=== PATIENT | male | born 1965 | race African-American/Black ===

== ENCOUNTER 2017-06-29 12:12 | Emergency (ER) | payer SELFPAY ==
[2017-06-29] VITALS (7 sets, daily range): BP systolic 128–159; BP diastolic 74–110; PULSE 72–91; RESP 16–27; TEMP 37; O2SAT 92–100
--- NOTE | 2017-06-29 12:41 | EKG12_ITS ---
Test Reason : Blood Pressure : / mmHG Vent. Rate : 088 BPM Atrial Rate : 088 BPM P-R Int : 146 ms QRS Dur : 084 ms QT Int : 390 ms P-R-T Axes : 065 -46 157 degrees QTc Int : 471 ms Normal sinus rhythm Left anterior fascicular block Left ventricular hypertrophy T wave abnormality, consider lateral ischemia Prolonged QT Abnormal ECG Confirmed by KACEY SAENZ MD ([id number]), health editor GILMA CANELA ([id number]) on 07/02/2017 2:54:20 PM Referred By: FRANSISCA Confirmed By:KACEY SAENZ MD
--- NOTE | 2017-06-29 12:41 | RAD_ITS ---
STUDY: X-RAY CHEST REASON FOR EXAM: Male, 52 years old. Cough and shortness of breath. TECHNIQUE: Single AP portable view of the chest. COMPARISON: Comparison is made with prior examination dated March 21, 2013. FINDINGS: Hyperinflation. There is no demonstrated pleural abnormality. Normal size heart. A left-sided dual-chamber pacemaker is seen. Normal mediastinum and gypsy. Normal visualized pulmonary arteries. There is atherosclerotic tortuosity of the aortic arch and descending thoracic aorta. There are diffuse degenerative changes of the visualized thoracic spine. Normal visualized ribs, clavicles, and shoulders. There is no demonstrated abnormality of the visualized soft tissue structures of the upper abdomen. RAD/Chest 1 View (Portable) IMPRESSION: Hyperinflation. Electronically Signed: Rob Gallegos MD at 13:20 EST Tel [phone], Service support ,
--- NOTE | 2017-06-29 12:41 | CT_ITS ---
STUDY: CTA CHEST REASON FOR EXAM: Male, 52 years old. 2 day history of cough. RADIATION DOSAGE (If Supplied By Facility): CTDIvol = ( 7.48 ) mGy, DLP = ( 180.78 ) mGycm TECHNIQUE: The examination was performed with the intravenous administration of 75 ml of Isovue 370 contrast material. Post-processing of the angiographic images was performed, with multiplanar reformation and 3D reconstruction. Individualized dose optimization techniques were used for this CT. COMPARISON: Comparison is made with prior study dated March 21, 2013. FINDINGS: Normal enhancement of the main pulmonary artery and right and left pulmonary arteries. Normal enhancement of the bilateral peripheral pulmonary arteries. There is no demonstrated pulmonary embolism. Normal thoracic aorta and visualized great vessels. There is no demonstrated aortic dissection. Normal heart and pericardium. A left-sided pacemaker is seen. Normal mediastinum. Normal hilar regions. Normal visualized trachea and bronchi. Hyperinflation. Mild degree of emphysematous changes slightly worse in the upper lobes. Minimal degree of atelectasis at the right lung base. Normal pleura. Normal chest wall structures. There are degenerative changes of thoracic spine. Normal visualized upper abdomen. CT/CTA Chest W/WO Contrast IMPRESSION: Mild degree of emphysematous changes and right basilar atelectasis. There is no evidence of bone embolism. Electronically Signed: Rob Gallegos MD at 15:22 EST Tel [phone], Service support ,
--- NOTE | 2017-06-29 12:49 | ED.DCSUM_ITS ---
- ER Visit Summary Date of Service: 06/29/17 Chief Complaint: Cough and shortness of breath History of Present Illness: The patient is a 52 M presenting with cough and shortness of breath for the past 2-3 days. He states he has had a cough productive of sputum. He denies fever. He states that he has had some intermittent pleuritic chest pain. He has a history of a remote PE. He is not on anticoagulants. He has a history of a defibrillator secondary to congestive heart failure. History of hypertension. He is a smoker. Physical Examination: Vitals are stable. Patient is afebrile. Alert no acute distress. HEENT exam is unremarkable. Neck is supple. Lungs are clear and equal bilaterally. Heart is regular rate and rhythm. Abdomen is soft nontender nondistended. Extremities are unremarkable. Skin is warm and dry. No focal neurologic deficit. Remainder of exam is unremarkable. Emergency Department Course and Treatment: Patient was given aspirin on arrival. EKG is sinus rhythm rate of 88 with LVH, lateral T-wave inversion unchanged from previous. Chest x-ray shows hyperinflation. CBC, chemistries unremarkable other than BUN 23, creatinine 1.49. Troponin is negative. CTA chest was obtained shows no evidence of PE, mild emphysema, right basilar atelectasis. Patient is resting comfortably in the emergency department. His ambulatory pulse ox is 90-92% on room air. Repeat troponin is negative. Patient is given an albuterol MDI and prescription for Tessalon Perles. He is advised to follow-up with his primary care physician. Advised return to ED if worsening complaints. Disposition: Discharge home Impression: Dyspnea, bronchitis This note was generated with [employer] dictation software. It may contain incorrect words, spelling, and punctuation that were not noted in review of the chart prior to signing ED Disposition - Plan for ED Patient: Chief Complaint: Shortness of Breath Instructions: ED Upper Resp Infec No Abx Tx Prescriptions: Benzonatate [Tessalon Perle] 100 mg PO TID PRN PRN #20 capsule PRN Reason: Cough Referrals: Geovany Palma MD [NON-STAFF] - Care Physician,No Primary [Primary Care Provider] -
[2017-06-29] MEDS: Aspirin 81 MG TAB.CHEW 324 MG PO (13:02)
--- NOTE | 2017-06-29 13:14 | NURSING ---
MED REC COMPLETED WITH MEDICATIONS AND DOSES PATIENT IS SUPPOSE TO BE TAKING- PT STATES HE HAS NOT BEEN ABLE TO AFFORD HIS MEDICATIONS AND HAS NOT TAKEN THEM FOR APPROX A MONTH.
[2017-06-29 13:25] LABS: Absolute Neutrophil Count 2.2 X10^3/uL (2.0-7.7); Basophil# 0.02 X10^3/uL; Basophil% 0.4 % (0-1); Eosinophil# 0.21 X10^3/uL; Eosinophils% 3.8 % (0-5); Hemoglobin 14.4 g/dl (13.0-16.5); Lymphocyte % 47.2 % (19-41); Mean Corp Hgb Conc 35.1 g/gl (32-36); Mean Corpuscular Hgb 34.5 pg (27.0-32.0); Mean Corpuscular Volume 98.3 fL (80-94); Mean Platelet Vol. 9.9 fl (6.2-12.0); Monocyte# 0.51 X10^3/uL; Monocyte% 9.3 % (0-10); Neutrophil # 2.16 X10^3/uL (2.7-7.7); Neutrophil % 39.1 % (47-70); Platelet Count 182 K/mm3 (150-450); RBC Distribution Width CV 12.5 % (11.6-14.6); RBC Distribution Width SD 44.1 fl (35.1-43.9); Red Blood Count 4.17 M/mm3 (4.6-6.2); White Blood Count 5.5 K/mm3 (4.4-11.0)
[2017-06-29 13:26] LABS: POSITIVE COUNT NO; POSITIVE DIFFERENTIAL NO; POSITIVE MORPHOLOGY NO
[2017-06-29 13:42] LABS: Anion Gap 8 (5-15); BUN 23 mg/dL (7-18); BUN/Creat Ratio 15.4 RATIO (10-20); Calcium,Total 8.3 mg/dL (8.5-10.1); Chloride 106 mmol/L (98-107); Creatinine, Serum 1.49 mg/dL (0.70-1.30); EST Glomerular Filtration Rate 52 mL/min (>60); Est Glom Filt Rate - Afr Amer 63 mL/min (>60); Estimated Creatinine Clearance 48.41 ml/min; Glucose 123 mg/dL (74-106); Potassium 4.3 mmol/L (3.5-5.1); Sodium Level 139 mmol/L (136-145)
--- NOTE | 2017-06-29 16:50 | ED.DEP ---
ED Disposition - Plan for ED Patient: Chief Complaint: Shortness of Breath Instructions: ED Upper Resp Infec No Abx Tx Prescriptions: Benzonatate [Tessalon Perle] 100 mg PO TID PRN PRN #20 capsule PRN Reason: Cough Referrals: Care Physician,No Primary [Primary Care Provider] - Geovany Palma MD [NON-STAFF] -
== END 2017-06-29 17:12 | disposition home or self-care (01) ==
PROVIDERS: Emergency Provider Emergency Medicine
DX: J40 Bronchitis, not specified as acute or chronic (principal); F17.200 Nicotine dependence, unspecified, uncomplicated; I11.0 Hypertensive heart disease with heart failure; I50.9 Heart failure, unspecified; Z95.810 Presence of automatic (implantable) cardiac defibrillator; Z86.711 Personal history of pulmonary embolism; Z79.899 Other long term (current) drug therapy
CPT/HCPCS: 71045; 71275; 80048; 84484; 85025; 93005; 96360; 96361; 99285; J7030; J7040; Q9967; A4216

== ENCOUNTER 2017-07-04 09:54 | Inpatient (IN) | payer MEDICARE, SELFPAY ==
[2017-07-04] VITALS (10 sets, daily range): BP systolic 92–158; BP diastolic 65–111; PULSE 75–105; RESP 16–20; TEMP 35.9–36.8; O2SAT 93–97; BMI 19.8; BMI 17.2
--- NOTE | 2017-07-04 10:25 | RAD_ITS ---
STUDY: X-RAY CHEST REASON FOR EXAM: Male, 52 years old. 3 week history of cough and generalized. TECHNIQUE: PA and lateral views of the chest. COMPARISON: Comparison is made with prior study dated June 29, 2017. FINDINGS: There now is evidence of right upper lobe consolidation. Mild increased markings are also seen in the superior segment of the right lower lobe. There is no demonstrated pleural abnormality. Normal size heart. A left-sided dual-chamber pacemaker is seen. Normal mediastinum and gypsy. Normal visualized pulmonary arteries. Normal visualized aortic arch and descending thoracic aorta. There are degenerative changes of the visualized thoracic spine. Normal visualized ribs, clavicles, and shoulders. There is no demonstrated abnormality of the visualized soft tissue structures of the upper abdomen. RAD/Chest PA and Lateral IMPRESSION: Right upper lobe consolidation. Focal infiltrate in the superior segment of the right lower lobe. Electronically Signed: Rob Gallegos MD at 11:02 EDT Tel [phone], Service support ,
--- NOTE | 2017-07-04 10:26 | ED.VISSUMM ---
- ER Visit Summary Date of Service: 07/04/17 Chief Complaint: Cough History of Present Illness: The patient is a 52 M last 2 weeks of intermittent cough nonproductive. Subjective fever. Says occasionally has nausea vomiting. No abdominal pain. No diarrhea. No melena L. No hematemesis. No hemoptysis. Denies any weight change. He does have a history of a defibrillator. Physical Examination: Appearing middle-aged male. Vital signs are stable afebrile. Blood pressure is elevated 150/111. Pulse ox 90% on room air no signs of hypoxia. H EENT exam unremarkable. Neck nontender no lymphadenopathy. Lungs clear to auscultation bilaterally. No rales, rhonchi or wheezing. Equal and symmetrical. Heart regular rate and rhythm no murmur. Chest wall nontender. Defibrillator in the left chest wall. Abdomen soft nontender. Normal bowel sounds no peritoneal signs. He is moving all 4 extremities. Neurovascular intact. Calves are nontender without edema or cords. Neurologically is awake and alert with no focal motor deficits. Back exam unremarkable. Skin exam unremarkable. Test Results: Chest x-ray shows a right upper and lower lobe pneumonia. For that reason labs were drawn. CBC shows a white count of 5. H&H is 1747. No bands. Electrolytes show sodium 132. Urine creatinine 23 and 1.5 consistent with mild dehydration normal anion gap. Emergency Department Course and Treatment: He was treated with a liter of normal saline. IV Rocephin and Zithromax. Can I spoke he has a lot of responsibilities at home and absolutely does not want to stay in the hospital he understands he is both a right upper and right lower lobe pneumonia. No severe is getting worse to return to be admitted. Be started on Levaquin 1 pill a day for the next 10 days. Also to follow-up with his primary care physician Dr. Palma at the [facility] Treatment Plan: IV Ceftin and Zithromax in the ER. I spoke to the hospitalist and he will admit the patient. Disposition: Admission Impression: Right upper and lower lobe pneumonia Mild dehydration This note was generated with [employer] dictation software. It may contain incorrect words, spelling, and punctuation that were not noted in review of the chart prior to signing ED Disposition - Plan for ED Patient: Disposition: Home or Assisted Living Chief Complaint: Cough Instructions: ED Pneumonia Adult Prescriptions: Levofloxacin [Levaquin] 750 mg PO DAILY #10 tab Referrals: Care Physician,No Primary [Primary Care Provider] - 3-5 Days Additional Instructions: Off work next 5 days. Plenty of fluids and rest. Return to ER if you are feeling worse you have both the right upper and lower lobe pneumonia if not getting better we may need to admit you to the hospital for IV antibiotics. Tylenol and Motrin for fever. Levaquin once a day as the antibiotic to treat this pneumonia.
[2017-07-04 11:38] LABS: Absolute Lymphocyte Count 0.87 X10^3/ul (0.83-4.51); Absolute Neutrophil Count 4.1 X10^3/uL (2.0-7.7); Basophil# 0.01 X10^3/uL; Basophil% 0.2 % (0-1); Hemoglobin 17.1 g/dl (13.0-16.5); Lymphocyte # 0.87 X10^3/ul (4.0); Lymphocyte % 15.6 % (19-41); Mean Corp Hgb Conc 36.4 g/gl (32-36); Mean Corpuscular Hgb 34.5 pg (27.0-32.0); Mean Corpuscular Volume 94.9 fL (80-94); Mean Platelet Vol. 10.3 fl (6.2-12.0); Monocyte# 0.57 X10^3/uL; Monocyte% 10.2 % (0-10); Neutrophil # 4.13 X10^3/uL (2.7-7.7); Neutrophil % 73.8 % (47-70); POSITIVE COUNT NO; POSITIVE DIFFERENTIAL NO; POSITIVE MORPHOLOGY NO; Platelet Count 165 K/mm3 (150-450); RBC Distribution Width CV 13.1 % (11.6-14.6); RBC Distribution Width SD 44.4 fl (35.1-43.9); Red Blood Count 4.95 M/mm3 (4.6-6.2); White Blood Count 5.6 K/mm3 (4.4-11.0)
[2017-07-04 11:50] LABS: Anion Gap 11 (5-15); BUN 23 mg/dL (7-18); BUN/Creat Ratio 14.6 RATIO (10-20); Calcium,Total 8.2 mg/dL (8.5-10.1); Chloride 96 mmol/L (98-107); Creatinine, Serum 1.57 mg/dL (0.70-1.30); EST Glomerular Filtration Rate 49 mL/min (>60); Est Glom Filt Rate - Afr Amer 60 mL/min (>60); Estimated Creatinine Clearance 45.38 ml/min; Glucose 111 mg/dL (74-106); Sodium Level 132 mmol/L (136-145)
--- NOTE | 2017-07-04 12:01 | ED.DEP ---
ED Disposition - Plan for ED Patient: Disposition: Home or Assisted Living Chief Complaint: Cough Instructions: ED Pneumonia Adult Prescriptions: Levofloxacin [Levaquin] 750 mg PO DAILY #10 tab Referrals: Care Physician,No Primary [Primary Care Provider] - 3-5 Days Additional Instructions: Off work next 5 days. Plenty of fluids and rest. Return to ER if you are feeling worse you have both the right upper and lower lobe pneumonia if not getting better we may need to admit you to the hospital for IV antibiotics. Tylenol and Motrin for fever. Levaquin once a day as the antibiotic to treat this pneumonia.
[2017-07-04] MEDS: Ceftriaxone 1 GM/50 mL Premix x1 IV (12:05)
[2017-07-04] MEDS: 0.9% Normal Saline 1,000 ML 999 ML IV (12:05)
--- NOTE | 2017-07-04 12:51 | NURSING ---
216 RUL CAP NANCIE
[2017-07-04] MEDS: Ondansetron 4 MG/2 ML Vial IV (13:01)
--- NOTE | 2017-07-04 14:29 | PCM.HP.STD ---
Problem List (1) Nonischemic cardiomyopathy Status: Chronic (2) chronic heart failure status post AICD Status: Chronic (3) History of smoking and illicit subst use Status: Chronic (4) History of substance use Status: Chronic (5) Ex-smoker Status: Acute (6) Right upper lobe and lower lobe CAP Status: Acute History of Present Illness Date of Admission: 07/04/17 Chief Complaint: Progressive worsening of shortness of breath along with cough for 3 weeks The patient is a 52 year old M with history of active smoker and polysubstance use, chronic heart failure with nonischemic cardiomyopathy status post AICD came to ER with progressive worsening of shortness of breath for 2-3 weeks. Patient also has fever with chills. Patient has cough, nonproductive in nature which is getting better. Patient easily gets short of breath at rest and even on mild exertion. In ED, his blood pressure was found elevated. Was mild tachypneic but no fever. Chest x-ray shows right upper lobe consolidation and focal infiltrate of superior segment of right lower lobe suggestive of multifocal pneumonia. Patient is further admitted and was started on IV ceftriaxone and Zithromax in the ER [] Past Medical History Past Medical History (Chronic Problems): Chronic Problems Nonischemic cardiomyopathy (Chronic) chronic heart failure status post AICD (Chronic) History of smoking and illicit subst use (Chronic) History of substance use (Chronic) Allergies No Known Allergies Allergy (Verified 07/04/17 09:54) Home Medications: Ambulatory Orders Medication Instructions Recorded Amlodipine [Norvasc] 10 mg PO DAILY 03/21/13 Carvedilol [Coreg] 25 mg PO BID 03/21/13 Lisinopril 20 mg PO DAILY #30 tablet 01/17/17 Benzonatate [Tessalon Perle] 100 mg PO TID PRN PRN #20 capsule 06/29/17 Levofloxacin [Levaquin] 750 mg PO DAILY #10 tab 07/04/17 Smoking Status: Former smoker - *Family History Paternal History Items: No pertinent history Review of Systems Constitutional: Reports: Chills, Fever, Weakness, Fatigue HEENT: Reports: Post Nasal Drip, Sinus Congestion, Sinus Drainage. Denies: Head Aches, Sore Throat Cardiovascular: Denies: Chest Pain, Palpitations Respiratory: Reports: Cough, Shortness of breath at rest, Shortness of breath upon exertion, Wheezing. Denies: Sputum production Gastrointestinal: Denies: Abdominal Pain, Nausea, Vomiting Genitourinary: Denies: Dysuria Musculoskeletal: Denies: Joint Pain, Joint Tenderness Skin: Denies: Rash, Wounds Neurological: Denies: Numbness, Tingling, Focal weakness Psychiatric: Denies: Anxiety, Depression, Homicidal Ideations, Suicidal Ideations Hematologic/ Lymphatic: Denies: Easy Bruising, Easy Bleeding VTE Information - Inpt Only VTE Present on Admission: No VTE Mechan Device Prophylaxis: SCD's VTE Pharm Prophylaxis ordered?: Yes Patient Problems: Active and Suspected Problems Ex-smoker (Acute) Right upper lobe and lower lobe CAP (Acute) - Physical Exam General: Alert, Oriented x3, Cooperative HEENT: Atraumatic, PERRLA, EOMI, Normocephalic Oral: No Gingival or Mucosal Lesions/ Ulcerations Neck: Supple, No JVD, Negative Carotid Bruits Lungs: Diminished, Rhonchi, Short of Breath Cardiovascular: Regular rate, Regular Rhythm, Normal S1, Normal S2, No murmurs, - - Left subclavicular AICD present Abdomen: Bowel Sounds Present, Soft, Non Tender, Non-Distended Extremities: No edema, Capillary Refill Less than 3 Seconds Skin: No rashes, No breakdown Musculoskeletal: No Tenderness to Palpation of Joints or Extremities, Muscle Wasting Lymphatic: No Cervical, Supraclavicular, or Inguinal Adenopathy Neurological: Cranial nerves II-XII grossly intact Psych/Mental Status: Normal Affect, Appropriate Vital Signs Temp Pulse Resp BP Pulse Ox 98.2 F 83 18 92/65 97 07/04/17 14:18 07/04/17 14:18 07/04/17 14:18 07/04/17 14:18 07/04/17 12:38 Oxygen Delivery Method Room Air Weight: 113 lb 5 oz Body Mass Index (BMI) 17.2 Assessment/Plan Active and Suspected Problems Ex-smoker (Acute) Right upper lobe and lower lobe CAP (Acute) The patient is a 52 year old M with history of active smoker and polysubstance use, chronic heart failure with nonischemic cardiomyopathy status post AICD came to ER with progressive worsening of shortness of breath for 2-3 weeks. Patient also has fever with chills. Patient has cough, nonproductive in nature which is getting better. Patient easily gets short of breath at rest and even on mild exertion. In ED, his blood pressure was found elevated. Was mild tachypneic but no fever. Chest x-ray shows right upper lobe consolidation and focal infiltrate of superior segment of right lower lobe suggestive of multifocal pneumonia. Patient is further admitted and was started on IV ceftriaxone and Zithromax in the ER 1. Multifocal right upper lobe and lower lobe community acquired pneumonia: Patient is being admitted on the regular floor. Pneumonia workup with the sputum culture, urinary antigens and blood culture. Respiratory panel ordered. Continue IV ceftriaxone and Zithromax. On bronchodilator as needed, incentive spirometry and Mucinex. 2. Nonischemic cardiomyopathy with chronic heart failure status post most probably due to polysubstance use in the past: As per our record, there is old exercise stress test report in 2013 was reported as normal submaximal treadmill stress ECG, negative for ischemia. 2D echo is ordered. Twelve-lead EKG and BNP ordered. : Continue amlodipine, lisinopril and carvedilol. 3. Moderate protein calorie malnutrition: Patient has BMI 17.2 kg/m?. Mild to moderate muscle atrophy in extremities. On ensure. Perhaps due to chronic heart failure and history of drug use other chronic comorbidities include hypertension: Fasting lipid profile ordered. DVT prophylaxis: On Lovenox 40 mils subcu daily and bilateral SCDs Code Visit Inpatient E&M: 24573 Init Hosp L3
[2017-07-04] MEDS: Ipratropium/Albuterol Sulfate 3 ML AMPUL.NEB INHALATION ×2 (14:30→19:22)
[2017-07-04] MEDS: Benzonatate 100 MG Capsule 200 MG PO ×2 (15:40→20:46)
--- NOTE | 2017-07-04 17:12 | EKG12_ITS ---
Test Reason : Blood Pressure : / mmHG Vent. Rate : 101 BPM Atrial Rate : 101 BPM P-R Int : 126 ms QRS Dur : 084 ms QT Int : 380 ms P-R-T Axes : 068 -57 242 degrees QTc Int : 492 ms Sinus tachycardia Biatrial enlargement Left axis deviation T wave abnormality, consider inferior ischemia T wave abnormality, consider anterolateral ischemia Abnormal ECG When compared with ECG of 04-JUL-2017 19:11, MANUAL COMPARISON REQUIRED, DATA IS UNCONFIRMED Confirmed by LETTY LI, KACEY ([id number]), editor greeting card GILMA CANELA ([id number]) on 07/13/2017 2:53:37 PM Referred By: NANCIE Confirmed By:KACEY SAENZ MD
[2017-07-04] MEDS: Enoxaparin 40 MG/0.4 ML Syringe SC (18:31)
[2017-07-04] MEDS: 0.9% Normal Saline 1,000 ML 100 ML IV (20:10)
[2017-07-04] MEDS: Ceftriaxone 1 GM/50 ML BAG IV (20:43)
[2017-07-04] MEDS: Carvedilol 25 MG Tablet PO (20:47)
[2017-07-04] MEDS: guaiFENesin 1,200 MG Tablet 1200 MG PO (20:47)
[2017-07-04 22:28] LABS: Magnesium 2.2 mg/dL (1.6-2.6)
[2017-07-04] MEDS: Aspirin 325 MG Tablet PO (23:06)
[2017-07-04 23:36] LABS: Color, Urine Yellow (Yellow); Glucose, Dipstick Normal (Normal); Ketone-Dipstick Negative (Negative); Leukocyte Esterase-Dipstick Negative /ul (Negative); Nitrite-Dipstick Negative (Negative); Occult Blood-Urine 150 /ul (Negative); Protein-Dipstick 100 mg/dl (Negative); Specific Gravity, Urine 1.025 (1.002-1.030); Urine Bilirubin Dipstick Negative (Negative); Urine Clarity Sl. Cloudy (Clear); Urine Urobilinogen Normal (Normal)
[2017-07-05] VITALS (43 sets, daily range): BP systolic 54–127; BP diastolic 32–97; PULSE 49–87; RESP 12–25; TEMP 34–36.6; O2SAT 93–100
[2017-07-05 05:04] LABS: Anion Gap 9 (5-15); BUN 36 mg/dL (7-18); BUN/Creat Ratio 19.7 RATIO (10-20); Calcium,Total 7.2 mg/dL (8.5-10.1); Chloride 100 mmol/L (98-107); Cholesterol 84 mg/dL (200); Creatinine, Serum 1.83 mg/dL (0.70-1.30); EST Glomerular Filtration Rate 41 mL/min (>60); Est Glom Filt Rate - Afr Amer 50 mL/min (>60); Estimated Creatinine Clearance 33.94 ml/min; Glucose 115 mg/dL (74-106); High Density Lipoprotein 38 mg/dL; Potassium 3.7 mmol/L (3.5-5.1); Sodium Level 133 mmol/L (136-145); Triglycerides 88 mg/dL; Very Low Density Lipoprotein 18 mg/dL (5-40)
[2017-07-05 05:32] LABS: BNP,B-Type NATRIURETIC PEPTIDE 422.2 pg/mL (0-100)
[2017-07-05] MEDS: 0.9% Normal Saline 1,000 ML 100 ML IV (05:39)
[2017-07-05] MEDS: Benzonatate 100 MG Capsule 200 MG PO ×2 (05:40→22:09)
--- NOTE | 2017-07-05 05:55 | EKG12_ITS ---
Test Reason : AM Blood Pressure : / mmHG Vent. Rate : 071 BPM Atrial Rate : 071 BPM P-R Int : 134 ms QRS Dur : 084 ms QT Int : 488 ms P-R-T Axes : 068 -52 248 degrees QTc Int : 530 ms Normal sinus rhythm Biatrial enlargement Left anterior fascicular block ST & T wave abnormality, consider inferior ischemia ST & T wave abnormality, consider anterolateral ischemia Prolonged QT Abnormal ECG Confirmed by LETTY LI, KACEY ([id number]), senior editor GILMA CANELA ([id number]) on 07/17/2017 1:45:02 PM Referred By: NANCIE Confirmed By:KACEY SAENZ MD
--- NOTE | 2017-07-05 05:55 | ECHOD_ITS ---
Reason For Study: CHF Procedure This was a 2D Doppler, Color Flow transthoracic echocardiogram. Exam performed portable in patient room. Left Ventricle Normal LV size. The estimated ejection fraction is 20 %. Severe global left ventricular systolic dysfunction. Transmitral diastolic flow velocities suggest severe (stage 3) diastolic dysfunction. Right Ventricle Normal RV size. ICD or pacer leads identified within the right ventricle. Normal systolic function. Atria The left atrium is mildly enlarged. Normal right atrium. Mitral Valve Normal mitral valve. Moderately severe (3+) eccentric mitral valve insufficiency. Tricuspid Valve Normal tricuspid valve. Moderate (2+) tricuspid valve insufficiency. Pulmonary artery systolic pressure is 22 mmHg. Aortic Valve Normal aortic valve. Trisinus/trileaflet aortic valve. Pulmonic Valve Normal pulmonic valve. Great Vessels Normal aortic root. The pulmonary artery is normal size. The inferior vena cava is dilated. and partially collapses. Pericardium/Pleural No pericardial effusion. MMode/2D Measurements & Calculations LVIDd: 5.3 cm IVSd: 0.90 cm Ao root diam: 2.5 cm LVIDs: 4.6 cm LVPWd: 1.1 cm LA dimension: 4.5 cm FS: 14.0 % LAV(MOD-sp2): 30.6 ml Doppler Measurements & Calculations MV E max greg: 89.5 cm/sec Lat Peak E' Greg: 5.0 cm/sec Med Peak E' Greg: 5.9 cm/sec MV A max greg: 18.1 cm/sec E/E' lat: 18.0 E/E' med: 15.2 MV E/A: 4.9 Ao V2 max: 54.0 cm/sec LV V1 max: 50.6 cm/sec PA V2 max: 59.5 cm/sec Ao max P.2 mmHg LV V1 max P.0 mmHg TR max greg: 201.9 cm/sec TR max P.3 mmHg Interpretation Summary Normal LV size. The estimated ejection fraction is 20 %. Severe global left ventricular systolic dysfunction. Transmitral diastolic flow velocities suggest severe (stage 3) diastolic dysfunction Moderately severe (3+) eccentric mitral valve insufficiency. Moderate (2+) tricuspid valve insufficiency. Compared to prior study, there is no significant change. Ordering Physician: Alessio Dan Referring Physician: Saray PCP Performed By: Latanya Alcazar RDCS
--- NOTE | 2017-07-05 06:00 | NURSING ---
Pt transferred to PCU 121 due to elevated troponins overnight. Report called by toyin Calabrese RN. Pt transferred on monitor.
[2017-07-05 06:38] LABS: Partial Thromboplast Time 41.7 Seconds (24.1-36.2)
--- NOTE | 2017-07-05 06:51 | PCM.CONS.C ---
Reason for Consult Date of Consultation: 07/05/17 Reason for Consultation: EKG changes and abnormal cardiac enzymes History of Present Illness: The patient is a 52 year old M with a history of nonischemic cardiomyopathy status post ICD replaced twice previously been followed at the [facility] but noncompliance presented to the emergency room yesterday with shortness of breath and diagnosed as having a multilobar pneumonia. He denied any chest pain per se he does have shortness of breath and fatigue no dizziness no diaphoresis no near syncope or syncope has not had any ICD discharges. He says that he has not seen a adjuster arbitrator in years. An EKG was done which had mild T-wave abnormalities noted but a follow-up EKG and troponin levels which were done on the medical unit demonstrated significant changes and therefore cardiology was called for further evaluation and management. At this particular time he feels well with no cardiac symptoms. [] Past Medical History Allergies/Adverse Reactions: Allergies No Known Allergies Allergy (Verified 07/04/17 09:54) Home Medications: Ambulatory Orders Medication Instructions Recorded Amlodipine [Norvasc] 10 mg PO DAILY 03/21/13 Carvedilol [Coreg] 25 mg PO BID 03/21/13 Lisinopril 20 mg PO DAILY #30 tablet 01/17/17 Benzonatate [Tessalon Perle] 100 mg PO TID PRN PRN #20 capsule 06/29/17 Levofloxacin [Levaquin] 750 mg PO DAILY #10 tab 07/04/17 Past Medical History (Chronic Problems): Chronic Problems Nonischemic cardiomyopathy (Chronic) chronic heart failure status post AICD (Chronic) History of smoking and illicit subst use (Chronic) History of substance use (Chronic) Surgical History: - - Implantable defibrillator - *Family History Paternal History Items: No pertinent history Smoking Status: Former smoker Alcohol: None Drugs: None Review of Systems - Review of Systems General: Reports: Fatigue. Denies: Fever, Night Sweats Cardiovascular: Denies: Chest Discomfort, Shortness of Breath, Orthopnea, PND, Peripheral Edema, Palpitations, Lightheadedness, Dizziness, Near Syncope, Syncope Respiratory: Reports: Cough. Denies: Sputum Production, Hemoptysis Gastrointestinal: Denies: Hematemesis, Hematochezia, Melena Genitourinary: Denies: Dysuria, Hematuria Skin: Denies: Rash Subjectve: Pleasant gentleman in no apparent distress Objective: Vital Signs Temp Pulse Resp BP Pulse Ox 98 F 72 16 93/60 94 07/05/17 02:30 07/05/17 02:30 07/05/17 02:30 07/05/17 02:30 07/05/17 03:00 Oxygen Delivery Method Room Air Weight: 113 lb 5 oz Body Mass Index (BMI) 17.2 Intake and Output for Last 24 Hours 07/03/17 07/04/17 07/05/17 23:59 23:59 23:59 Intake Total 843 / 843 1273 / 1273 Balance 843 / 843 1273 / 1273 General: Awake, Alert, Oriented x 3 HEENT: PERRL, EOMI, Sclera Non Icteric Neck: Supple, Good ROM, No Lymph Node Enlargement Chest Wall: - - ICD site intact Lungs: Clear to auscultation Cardiovascular: Regular Rhythm, Normal S1, Normal S2, No Murmurs, No Rubs, No Gallops 07/04/17 21:07: Magnesium 2.2, Troponin I 0.39 H 07/04/17 23:00: Urine Color Yellow, Urine Clarity Sl. Cloudy, Urine pH 5.0, Ur Specific [place] 1.025, Urine Protein 100 H, Urine Glucose (UA) Normal, Urine Ketones Negative, Urine Occult Blood 150 H, Urine Nitrite Negative, Urine Bilirubin Negative, Urine Urobilinogen Normal, Ur Leukocyte Esterase Negative 07/05/17 00:00: Troponin I 0.45 H 07/05/17 04:12: B-Natriuretic Peptide 422.2 H 07/05/17 04:12: Sodium 133 L, Potassium 3.7, Chloride 100, Carbon Dioxide 24.0, Anion Gap 9, BUN 36 H, Creatinine 1.83 H, Est GFR (MDRD) Af Amer 50 L, Est GFR (MDRD) Non-Af 41 L, BUN/Creatinine Ratio 19.7, Glucose 115 H, Calcium 7.2 L, Troponin I 0.41 H, Triglycerides 88, Cholesterol 84, LDL Cholesterol 28, VLDL Cholesterol 18, HDL Cholesterol 38 L 07/05/17 05:50: APTT 41.7 H Rhythm: EKG: Normal sinus rhythm with T-wave inversions noted anteriorly and inferiorly Assessment/Plan 1. Abnormal cardiac enzymes and abnormal EKG I strongly suspect the above likely secondary to his cardiomyopathy which is probably been worsened by his upper respiratory tract infection or pneumonia. The abnormal cardiac enzymes are likely secondary to demand ischemia. There does not appear to be a significant rise and fall and appears to be plateaued. My recommendation will be to obtain an echocardiogram to assess his left ventricular function. Depending on those findings further recommendations will be made. 2. Nonischemic cardiomyopathy He does have a known history of this. My recommendation at this time would be to obtain his previous records and see what workup was done in the past. He will in the meantime continue on his beta-miley as well as his CHUNG inhibitor. 3. Status post ICD implantation He does not know what kind of ICD he has. We will check her records. He says that he has been having these checked remotely. We will reinvestigate the above. Thank you for allowing me to participate in the care of your patient. Please don't hesitate to call if any issues arise
--- NOTE | 2017-07-05 06:56 | CON.PCM_ITS ---
Reason for Consult Date of Consultation: 07/05/17 Reason for Consultation: EKG changes and abnormal cardiac enzymes History of Present Illness: The patient is a 52 year old M with a history of nonischemic cardiomyopathy status post ICD replaced twice previously been followed at the [facility] but noncompliance presented to the emergency room yesterday with shortness of breath and diagnosed as having a multilobar pneumonia. He denied any chest pain per se he does have shortness of breath and fatigue no dizziness no diaphoresis no near syncope or syncope has not had any ICD discharges. He says that he has not seen a high school agriculture teacher in years. An EKG was done which had mild T- wave abnormalities noted but a follow-up EKG and troponin levels which were done on the medical unit demonstrated significant changes and therefore cardiology was called for further evaluation and management. At this particular time he feels well with no cardiac symptoms. [] Past Medical History Allergies/Adverse Reactions: Allergies No Known Allergies Allergy (Verified 07/04/17 09:54) Home Medications: Ambulatory Orders Medication Instructions Recorded Amlodipine [Norvasc] 10 mg PO DAILY 03/21/13 Carvedilol [Coreg] 25 mg PO BID 03/21/13 Lisinopril 20 mg PO DAILY #30 tablet 01/17/17 Benzonatate [Tessalon Perle] 100 mg PO TID PRN PRN #20 capsule 06/29/17 Levofloxacin [Levaquin] 750 mg PO DAILY #10 tab 07/04/17 Past Medical History (Chronic Problems): Chronic Problems Nonischemic cardiomyopathy (Chronic) chronic heart failure status post AICD (Chronic) History of smoking and illicit subst use (Chronic) History of substance use (Chronic) Surgical History: - - Implantable defibrillator - *Family History Paternal History Items: No pertinent history Smoking Status: Former smoker Alcohol: None Drugs: None Review of Systems - Review of Systems General: Reports: Fatigue. Denies: Fever, Night Sweats Cardiovascular: Denies: Chest Discomfort, Shortness of Breath, Orthopnea, PND, Peripheral Edema, Palpitations, Lightheadedness, Dizziness, Near Syncope, Syncope Respiratory: Reports: Cough. Denies: Sputum Production, Hemoptysis Gastrointestinal: Denies: Hematemesis, Hematochezia, Melena Genitourinary: Denies: Dysuria, Hematuria Skin: Denies: Rash Subjectve: Pleasant gentleman in no apparent distress Objective: Vital Signs Temp Pulse Resp BP Pulse Ox 98 F 72 16 93/60 94 07/05/17 02:30 07/05/17 02:30 07/05/17 02:30 07/05/17 02:30 07/05/17 03:00 Oxygen Delivery Method Room Air Weight: 113 lb 5 oz Body Mass Index (BMI) 17.2 Intake and Output for Last 24 Hours 07/03/17 07/04/17 07/05/17 23:59 23:59 23:59 Intake Total 843 / 843 1273 / 1273 Balance 843 / 843 1273 / 1273 General: Awake, Alert, Oriented x 3 HEENT: PERRL, EOMI, Sclera Non Icteric Neck: Supple, Good ROM, No Lymph Node Enlargement Chest Wall: - - ICD site intact Lungs: Clear to auscultation Cardiovascular: Regular Rhythm, Normal S1, Normal S2, No Murmurs, No Rubs, No Gallops 07/04/17 21:07: Magnesium 2.2, Troponin I 0.39 H 07/04/17 23:00: Urine Color Yellow, Urine Clarity Sl. Cloudy, Urine pH 5.0, Ur Specific [place] 1.025, Urine Protein 100 H, Urine Glucose (UA) Normal, Urine Ketones Negative, Urine Occult Blood 150 H, Urine Nitrite Negative, Urine Bilirubin Negative, Urine Urobilinogen Normal, Ur Leukocyte Esterase Negative 07/05/17 00:00: Troponin I 0.45 H 07/05/17 04:12: B-Natriuretic Peptide 422.2 H 07/05/17 04:12: Sodium 133 L, Potassium 3.7, Chloride 100, Carbon Dioxide 24.0, Anion Gap 9, BUN 36 H, Creatinine 1.83 H, Est GFR (MDRD) Af Amer 50 L, Est GFR ( MDRD) Non-Af 41 L, BUN/Creatinine Ratio 19.7, Glucose 115 H, Calcium 7.2 L, Troponin I 0.41 H, Triglycerides 88, Cholesterol 84, LDL Cholesterol 28, VLDL Cholesterol 18, HDL Cholesterol 38 L 07/05/17 05:50: APTT 41.7 H Rhythm: EKG: Normal sinus rhythm with T-wave inversions noted anteriorly and inferiorly Assessment/Plan 1. Abnormal cardiac enzymes and abnormal EKG I strongly suspect the above likely secondary to his cardiomyopathy which is probably been worsened by his upper respiratory tract infection or pneumonia. The abnormal cardiac enzymes are likely secondary to demand ischemia. There does not appear to be a significant rise and fall and appears to be plateaued. My recommendation will be to obtain an echocardiogram to assess his left ventricular function. Depending on those findings further recommendations will be made. 2. Nonischemic cardiomyopathy He does have a known history of this. My recommendation at this time would be to obtain his previous records and see what workup was done in the past. He will in the meantime continue on his beta-miley as well as his CHUNG inhibitor. 3. Status post ICD implantation He does not know what kind of ICD he has. We will check her records. He says that he has been having these checked remotely. We will reinvestigate the above. Thank you for allowing me to participate in the care of your patient. Please don't hesitate to call if any issues arise
[2017-07-05 07:06] LABS: International Normalized Ratio 1.1; Prothrombin Time (Protime)PT. 14.1 SECONDS (11.7-14.9)
[2017-07-05] MEDS: HEPARIN/D5w 25,000 UNITS 25,000 UNITS/250 ML IV.SOLN. 8 UNITS IV (09:02)
[2017-07-05] MEDS: guaiFENesin 1,200 MG Tablet 1200 MG PO ×2 (09:02→22:09)
[2017-07-05] MEDS: oxyCODONE 5 MG Tablet PO (09:05)
[2017-07-05] MEDS: Famotidine 20 MG Tablet PO (09:06)
[2017-07-05] MEDS: Ceftriaxone 1 GM/50 ML BAG IV (09:07)
[2017-07-05] MEDS: Lisinopril 20 MG Tablet PO (09:07)
[2017-07-05] MEDS: Aspirin 81 MG TAB.CHEW PO (09:07)
[2017-07-05] MEDS: Carvedilol 25 MG Tablet PO (09:07)
[2017-07-05] MEDS: amLODIPine 10 MG Tablet PO (09:07)
[2017-07-05] MEDS: Polyethylene Glycol 3350 17 GM PACKET PO (09:08)
[2017-07-05] MEDS: Ipratropium/Albuterol Sulfate 3 ML AMPUL.NEB INHALATION ×3 (11:02→22:56)
--- NOTE | 2017-07-05 14:59 | CASEMGMT ---
Face to Face with patient for initial transition planning/care coordination assessment. LUZ BUI introduced self and role at [facility], pt voices understanding and consents to assessment at this time. Pt lying in bed in no distress at this time. Pt A/O x4 at this time and answers all questions appropriately at this time. Care providers, pharmacy, and demographics verified. See attached link. Pt voices no further concerns/needs at this time. Advised pt to ask for CM if any further questions/concerns/needs arise, voices understanding. PLAN: Home [place] LUZ BUI
--- NOTE | 2017-07-05 15:20 | EKG12_ITS ---
Test Reason : Blood Pressure : / mmHG Vent. Rate : 053 BPM Atrial Rate : 053 BPM P-R Int : 138 ms QRS Dur : 080 ms QT Int : 596 ms P-R-T Axes : 053 -67 270 degrees QTc Int : 559 ms Sinus bradycardia Left axis deviation Marked ST abnormality, possible inferior subendocardial injury Prolonged QT Abnormal ECG When compared with ECG of 05-JUL-2017 04:36, MANUAL COMPARISON REQUIRED, DATA IS UNCONFIRMED Confirmed by ABDELRAHMAN AVILA ([id number]), supervising editor news reel GILMA CANELA ([id number]) on 07/09/2017 2:50:16 PM Referred By: NANCIE Confirmed By:ABDELRAHMAN AVILA
--- NOTE | 2017-07-05 15:33 | PCM.PN.HOSP ---
Patient Problems: Active and Suspected Problems Ex-smoker (Acute) Right upper lobe and lower lobe CAP (Acute) Subjective: The patient had EKG changes yesterday. His EKG showed normal sinus rhythm with left axis deviation and T-wave abnormality anterolateral leads. EKG in the morning for similar with ST-T wave abnormality in anterolateral leads. His previous EKG on 29 June 2017 shows T-wave inversion in V4 to V6. Troponins are mildly elevated. Patient seen by the motor vehicle technician. In the afternoon today, he complained of chest pain while he was getting echo. Patient dropped his blood pressure to 70 systolic, patient is agitated, altered mental status with confusion and disorientation and trying to remove IV line. Monitor of IV normal saline bolus ordered. IV heparin drip. CBC, CMP, PTT, magnesium twelve-lead EKG obtained. Vitals/I&O's: Vital Signs Temp Pulse Resp BP Pulse Ox 97.8 F 87 21 H 100/57 L 93 07/05/17 08:54 07/05/17 11:20 07/05/17 11:20 07/05/17 08:54 07/05/17 08:54 Oxygen Delivery Method Room Air Weight: 113 lb 5.082 oz Body Mass Index (BMI) 17.2 Intake and Output for Last 24 Hours 07/03/17 07/04/17 07/05/17 23:59 23:59 23:59 Intake Total 843 / 843 1994 Balance 843 / 843 1994 General: Cooperative, Confused, Disoriented, Lethargic HEENT: Atraumatic, PERRLA, EOMI, Normocephalic Oral: Dry Mucosa Neck: Supple, No JVD, Negative Carotid Bruits Lungs: No rhonchi, No wheeze, No rales, Diminished Cardiovascular: Regular rate, Normal S1, Normal S2, No murmurs, Bradycardic Abdomen: Bowel Sounds Present, Soft, Non Tender, Non-Distended Extremities: No edema, Capillary Refill Less than 3 Seconds Skin: No rashes, No breakdown Musculoskeletal: No Tenderness to Palpation of Joints or Extremities Neurological: Cranial nerves II-XII grossly intact Psych/Mental Status: Normal Affect, Appropriate Microbiology Past 72 Hours 07/04/17 14:17 Mucosa - Nose Respiratory Panel (PCR) - Final Influenza A (Subtype H1) 07/04/17 23:00 Urine, Clean Catch Streptococcus pneumoniae Antigen (M - Final 07/04/17 23:00 Urine, Clean Catch Legionella Antigen - Final Laboratory Results 07/04/17 21:07: Magnesium 2.2, Troponin I 0.39 H 07/04/17 23:00: Urine Color Yellow, Urine Clarity Sl. Cloudy, Urine pH 5.0, Ur Specific [place] 1.025, Urine Protein 100 H, Urine Glucose (UA) Normal, Urine Ketones Negative, Urine Occult Blood 150 H, Urine Nitrite Negative, Urine Bilirubin Negative, Urine Urobilinogen Normal, Ur Leukocyte Esterase Negative 07/05/17 00:00: Troponin I 0.45 H 07/05/17 04:12: B-Natriuretic Peptide 422.2 H 07/05/17 04:12: Sodium 133 L, Potassium 3.7, Chloride 100, Carbon Dioxide 24.0, Anion Gap 9, BUN 36 H, Creatinine 1.83 H, Estim Creat Clear Calc 33.94, Est GFR (MDRD) Af Amer 50 L, Est GFR (MDRD) Non-Af 41 L, BUN/Creatinine Ratio 19.7, Glucose 115 H, Calcium 7.2 L, Troponin I 0.41 H, Triglycerides 88, Cholesterol 84, LDL Cholesterol 28, VLDL Cholesterol 18, HDL Cholesterol 38 L 07/05/17 05:50: APTT 41.7 H 07/05/17 05:50: PT 14.1, INR 1.1 07/05/17 09:55: Troponin I 0.30 H Current Medications Acetaminophen (Tylenol) 650 mg PO Q4H PRN PRN PRN Reason: fever/mild pain Al Hydroxide/Mg Hydroxide (Mylanta Ii) 30 ml PO Q6H PRN PRN PRN Reason: Gastric Burning Albuterol Sulfate (Ventolin Aerosols) 2.5 mg INHALATION Q2H PRN PRN PRN Reason: SHORTNESS OF BREATH Albuterol/Ipratropium (Duoneb) 3 ml INHALATION Q4HWA.RT [facility] Last Admin: 07/05/17 14:34 Dose: Not Given Amlodipine Besylate (Norvasc) 10 mg PO DAILY [facility] Last Admin: 07/05/17 09:07 Dose: 10 mg Aspirin (Aspirin, Baby) 81 mg PO DAILY@0800 [facility] Last Admin: 07/05/17 09:07 Dose: 81 mg Atorvastatin Calcium (Lipitor) 80 mg PO QHS [facility] Benzonatate (Tessalon Perle) 200 mg PO TID [facility] Last Admin: 07/05/17 05:40 Dose: 200 mg Bisacodyl (Dulcolax) 10 mg RECTAL DAILY PRN PRN PRN Reason: Constipation Carvedilol (Coreg) 25 mg PO BID [facility] Last Admin: 07/05/17 09:07 Dose: 25 mg Docusate Sodium (Colace) 200 mg PO BID PRN PRN PRN Reason: Constipation Famotidine (Pepcid) 20 mg PO DAILY [facility] Last Admin: 07/05/17 09:06 Dose: 20 mg Guaifenesin (Mucinex) 1,200 mg PO BID [facility] Last Admin: 07/05/17 09:02 Dose: 1,200 mg Heparin Sodium (Porcine) (Heparin Na) 0 unit IV UD PRN PRN Reason: Protocol Sodium Chloride () 1,000 mls @ 100 mls/hr IV .Q10H [facility] Last Admin: 07/05/17 05:39 Dose: 100 mls/hr Azithromycin 500 mg/ Dextrose 255 mls @ 250 mls/hr IV Q24 [facility] Stop: 07/06/17 11:02 Last Admin: 07/05/17 11:52 Dose: 250 mls/hr Ceftriaxone Sodium (Rocephin) 1 gm in 50 mls @ 100 mls/hr IV Q24 [facility] Last Admin: 07/05/17 09:07 Dose: 100 mls/hr Heparin Sodium/Dextrose () 25,000 units in 250 mls @ 8 mls/hr IV .[id number] [facility]; As Directed PRN Reason: Protocol Last Admin: 07/05/17 09:02 Dose: 8 mls/hr Lisinopril (Zestril) 20 mg PO DAILY [facility] Last Admin: 07/05/17 09:07 Dose: 20 mg Morphine Sulfate (Morphine) 1 - 2 mg IV Q4H PRN PRN PRN Reason: SEVERE PAIN (6-10/10) Last Admin: 07/05/17 14:36 Dose: 2 mg Nutritional Formula (Lactose Free) (Ensure Enlive) 120 ml PO 4X/DAY [facility] Ondansetron HCl (Zofran) 4 mg IV Q8H PRN PRN PRN Reason: Nausea Oseltamivir Phosphate (Tamiflu) 30 mg PO BID [facility] Stop: 07/09/17 22:01 Oxycodone HCl (Oxyir) 5 mg PO Q4H PRN PRN PRN Reason: Moderate Pain (pain scale 4-5) Last Admin: 07/05/17 09:05 Dose: 5 mg Polyethylene Glycol (Miralax) 17 gm PO DAILY [facility] Last Admin: 07/05/17 09:08 Dose: 17 gm Prochlorperazine Edisylate (Compazine) 10 mg IV Q6H PRN PRN PRN Reason: Nausea/Vomiting Sodium Chloride () 5 - 30 ml IV UD PRN PRN Reason: SALINE FLUSH Zolpidem Tartrate (Ambien (Generic)) 5 mg PO QHS PRN PRN PRN Reason: SLEEP Assessment/Plan Active and Suspected Problems Ex-smoker (Acute) Right upper lobe and lower lobe CAP (Acute) The patient is a 52 year old M with history of active smoker and polysubstance use, chronic heart failure with nonischemic cardiomyopathy status post AICD came to ER with progressive worsening of shortness of breath for 2-3 weeks. Patient also has fever with chills. Patient has cough, nonproductive in nature which is getting better. Patient easily gets short of breath at rest and even on mild exertion. In ED, his blood pressure was found elevated. Was mild tachypneic but no fever. Chest x-ray shows right upper lobe consolidation and focal infiltrate of superior segment of right lower lobe suggestive of multifocal pneumonia. Patient is started on IV ceftriaxone and Zithromax and continued. Patient was initially admitted on [facility] and then transferred to PCU for EKG changes. 1. Atypical chest pain with drop in blood pressure possible unstable angina/ACS: Patient is being transferred to ICU. Serial troponin enzymes. 2D echo was done. Repeat EKG shows sinus bradycardia but no significant ST-T changes as compared to the previous one. Previous EKG shows normal sinus rhythm at 71 bpm with left anterior fascicular block with T inversion in anterolateral leads. Household Refrigeration Mechanic was consulted in the morning. Patient is on IV heparin drip. CBC, CMP, magnesium, PT, PTT and CT Head ordered. Hold heparin drip until blood loss anemia ruled out. Patient is being transferred to ICU. Creeler consulted. Multifocal right upper lobe and lower lobe community acquired pneumonia: Patient is being admitted on the regular floor. Pneumonia workup with the sputum culture, urinary antigens and blood culture. Respiratory panel ordered. Continue IV ceftriaxone and Zithromax. On bronchodilator as needed, incentive spirometry and Mucinex. 2. Nonischemic cardiomyopathy with chronic heart failure status post most probably due to polysubstance use in the past: As per our record, there is old exercise stress test report in 2013 was reported as normal submaximal treadmill stress ECG, negative for ischemia. 2D echo is ordered. BNP 422. Hold antihypertensive medication 3. Moderate protein calorie malnutrition: Patient has BMI 17.2 kg/m?. Mild to moderate muscle atrophy in extremities. On ensure. Perhaps due to chronic heart failure and history of drug use other chronic comorbidities include hypertension: Fasting lipid profile ordered. DVT prophylaxis: bilateral SCDs. Critical care Code Visit Inpatient E&M: 78793 Subs Hosp L3
--- NOTE | 2017-07-05 15:35 | NURSING ---
report given to latasha walter.
--- NOTE | 2017-07-05 15:40 | NURSING ---
Unable to get pulse ox d/t low bp & pt cold, Dr Gonzalez aware.
[2017-07-05] MEDS: 0.9% Normal Saline 1,000 ML 999 ML IV (15:45)
--- NOTE | 2017-07-05 15:51 | PN_ITS ---
Patient Problems: Active and Suspected Problems Ex-smoker (Acute) Right upper lobe and lower lobe CAP (Acute) Subjective: The patient had EKG changes yesterday. His EKG showed normal sinus rhythm with left axis deviation and T-wave abnormality anterolateral leads. EKG in the morning for similar with ST-T wave abnormality in anterolateral leads. His previous EKG on 29 June 2017 shows T-wave inversion in V4 to V6. Troponins are mildly elevated. Patient seen by the director of food and nutrition services. In the afternoon today, he complained of chest pain while he was getting echo. Patient dropped his blood pressure to 70 systolic, patient is agitated, altered mental status with confusion and disorientation and trying to remove IV line. Monitor of IV normal saline bolus ordered. IV heparin drip. CBC, CMP, PTT, magnesium twelve-lead EKG obtained. Vitals/I&O's: Vital Signs Temp Pulse Resp BP Pulse Ox 97.8 F 87 21 H 100/57 L 93 07/05/17 08:54 07/05/17 11:20 07/05/17 11:20 07/05/17 08:54 07/05/17 08:54 Oxygen Delivery Method Room Air Weight: 113 lb 5.082 oz Body Mass Index (BMI) 17.2 Intake and Output for Last 24 Hours 07/03/17 07/04/17 07/05/17 23:59 23:59 23:59 Intake Total 843 / 843 1994 Balance 843 / 843 1994 General: Cooperative, Confused, Disoriented, Lethargic HEENT: Atraumatic, PERRLA, EOMI, Normocephalic Oral: Dry Mucosa Neck: Supple, No JVD, Negative Carotid Bruits Lungs: No rhonchi, No wheeze, No rales, Diminished Cardiovascular: Regular rate, Normal S1, Normal S2, No murmurs, Bradycardic Abdomen: Bowel Sounds Present, Soft, Non Tender, Non-Distended Extremities: No edema, Capillary Refill Less than 3 Seconds Skin: No rashes, No breakdown Musculoskeletal: No Tenderness to Palpation of Joints or Extremities Neurological: Cranial nerves II-XII grossly intact Psych/Mental Status: Normal Affect, Appropriate Microbiology Past 72 Hours 07/04/17 14:17 Mucosa - Nose Respiratory Panel (PCR) - Final Influenza A (Subtype H1) 07/04/17 23:00 Urine, Clean Catch Streptococcus pneumoniae Antigen (M - Final 07/04/17 23:00 Urine, Clean Catch Legionella Antigen - Final Laboratory Results 07/04/17 21:07: Magnesium 2.2, Troponin I 0.39 H 07/04/17 23:00: Urine Color Yellow, Urine Clarity Sl. Cloudy, Urine pH 5.0, Ur Specific [place] 1.025, Urine Protein 100 H, Urine Glucose (UA) Normal, Urine Ketones Negative, Urine Occult Blood 150 H, Urine Nitrite Negative, Urine Bilirubin Negative, Urine Urobilinogen Normal, Ur Leukocyte Esterase Negative 07/05/17 00:00: Troponin I 0.45 H 07/05/17 04:12: B-Natriuretic Peptide 422.2 H 07/05/17 04:12: Sodium 133 L, Potassium 3.7, Chloride 100, Carbon Dioxide 24.0, Anion Gap 9, BUN 36 H, Creatinine 1.83 H, Estim Creat Clear Calc 33.94, Est GFR (MDRD) Af Amer 50 L, Est GFR (MDRD) Non-Af 41 L, BUN/Creatinine Ratio 19.7, Glucose 115 H, Calcium 7.2 L, Troponin I 0.41 H, Triglycerides 88, Cholesterol 84, LDL Cholesterol 28, VLDL Cholesterol 18, HDL Cholesterol 38 L 07/05/17 05:50: APTT 41.7 H 07/05/17 05:50: PT 14.1, INR 1.1 07/05/17 09:55: Troponin I 0.30 H Current Medications Acetaminophen (Tylenol) 650 mg PO Q4H PRN PRN PRN Reason: fever/mild pain Al Hydroxide/Mg Hydroxide (Mylanta Ii) 30 ml PO Q6H PRN PRN PRN Reason: Gastric Burning Albuterol Sulfate (Ventolin Aerosols) 2.5 mg INHALATION Q2H PRN PRN PRN Reason: SHORTNESS OF BREATH Albuterol/Ipratropium (Duoneb) 3 ml INHALATION Q4HWA.RT [facility] Last Admin: 07/05/17 14:34 Dose: Not Given Amlodipine Besylate (Norvasc) 10 mg PO DAILY [facility] Last Admin: 07/05/17 09:07 Dose: 10 mg Aspirin (Aspirin, Baby) 81 mg PO DAILY@0800 [facility] Last Admin: 07/05/17 09:07 Dose: 81 mg Atorvastatin Calcium (Lipitor) 80 mg PO QHS [facility] Benzonatate (Tessalon Perle) 200 mg PO TID [facility] Last Admin: 07/05/17 05:40 Dose: 200 mg Bisacodyl (Dulcolax) 10 mg RECTAL DAILY PRN PRN PRN Reason: Constipation Carvedilol (Coreg) 25 mg PO BID [facility] Last Admin: 07/05/17 09:07 Dose: 25 mg Docusate Sodium (Colace) 200 mg PO BID PRN PRN PRN Reason: Constipation Famotidine (Pepcid) 20 mg PO DAILY [facility] Last Admin: 07/05/17 09:06 Dose: 20 mg Guaifenesin (Mucinex) 1,200 mg PO BID [facility] Last Admin: 07/05/17 09:02 Dose: 1,200 mg Heparin Sodium (Porcine) (Heparin Na) 0 unit IV UD PRN PRN Reason: Protocol Sodium Chloride () 1,000 mls @ 100 mls/hr IV .Q10H [facility] Last Admin: 07/05/17 05:39 Dose: 100 mls/hr Azithromycin 500 mg/ Dextrose 255 mls @ 250 mls/hr IV Q24 [facility] Stop: 07/06/17 11:02 Last Admin: 07/05/17 11:52 Dose: 250 mls/hr Ceftriaxone Sodium (Rocephin) 1 gm in 50 mls @ 100 mls/hr IV Q24 [facility] Last Admin: 07/05/17 09:07 Dose: 100 mls/hr Heparin Sodium/Dextrose () 25,000 units in 250 mls @ 8 mls/hr IV .[id number] [facility]; As Directed PRN Reason: Protocol Last Admin: 07/05/17 09:02 Dose: 8 mls/hr Lisinopril (Zestril) 20 mg PO DAILY [facility] Last Admin: 07/05/17 09:07 Dose: 20 mg Morphine Sulfate (Morphine) 1 - 2 mg IV Q4H PRN PRN PRN Reason: SEVERE PAIN (6-10/10) Last Admin: 07/05/17 14:36 Dose: 2 mg Nutritional Formula (Lactose Free) (Ensure Enlive) 120 ml PO 4X/DAY [facility] Ondansetron HCl (Zofran) 4 mg IV Q8H PRN PRN PRN Reason: Nausea Oseltamivir Phosphate (Tamiflu) 30 mg PO BID [facility] Stop: 07/09/17 22:01 Oxycodone HCl (Oxyir) 5 mg PO Q4H PRN PRN PRN Reason: Moderate Pain (pain scale 4-5) Last Admin: 07/05/17 09:05 Dose: 5 mg Polyethylene Glycol (Miralax) 17 gm PO DAILY [facility] Last Admin: 07/05/17 09:08 Dose: 17 gm Prochlorperazine Edisylate (Compazine) 10 mg IV Q6H PRN PRN PRN Reason: Nausea/Vomiting Sodium Chloride () 5 - 30 ml IV UD PRN PRN Reason: SALINE FLUSH Zolpidem Tartrate (Ambien (Generic)) 5 mg PO QHS PRN PRN PRN Reason: SLEEP Assessment/Plan Active and Suspected Problems Ex-smoker (Acute) Right upper lobe and lower lobe CAP (Acute) The patient is a 52 year old M with history of active smoker and polysubstance use, chronic heart failure with nonischemic cardiomyopathy status post AICD came to ER with progressive worsening of shortness of breath for 2-3 weeks. Patient also has fever with chills. Patient has cough, nonproductive in nature which is getting better. Patient easily gets short of breath at rest and even on mild exertion. In ED, his blood pressure was found elevated. Was mild tachypneic but no fever. Chest x-ray shows right upper lobe consolidation and focal infiltrate of superior segment of right lower lobe suggestive of multifocal pneumonia. Patient is started on IV ceftriaxone and Zithromax and continued. Patient was initially admitted on [facility] and then transferred to PCU for EKG changes. 1. Atypical chest pain with drop in blood pressure possible unstable angina/ACS : Patient is being transferred to ICU. Serial troponin enzymes. 2D echo was done. Repeat EKG shows sinus bradycardia but no significant ST-T changes as compared to the previous one. Previous EKG shows normal sinus rhythm at 71 bpm with left anterior fascicular block with T inversion in anterolateral leads. Manager Diesel was consulted in the morning. Patient is on IV heparin drip. CBC , CMP, magnesium, PT, PTT and CT Head ordered. Hold heparin drip until blood loss anemia ruled out. Patient is being transferred to ICU. Field Marketer consulted. Multifocal right upper lobe and lower lobe community acquired pneumonia: Patient is being admitted on the regular floor. Pneumonia workup with the sputum culture, urinary antigens and blood culture. Respiratory panel ordered. Continue IV ceftriaxone and Zithromax. On bronchodilator as needed, incentive spirometry and Mucinex. 2. Nonischemic cardiomyopathy with chronic heart failure status post most probably due to polysubstance use in the past: As per our record, there is old exercise stress test report in 2013 was reported as normal submaximal treadmill stress ECG, negative for ischemia. 2D echo is ordered. BNP 422. Hold antihypertensive medication 3. Moderate protein calorie malnutrition: Patient has BMI 17.2 kg/m?. Mild to moderate muscle atrophy in extremities. On ensure. Perhaps due to chronic heart failure and history of drug use other chronic comorbidities include hypertension: Fasting lipid profile ordered. DVT prophylaxis: bilateral SCDs. Critical care Code Visit Inpatient E&M: 51885 Subs Hosp L3
--- NOTE | 2017-07-05 16:09 | CON.PCM_ITS ---
Reason for Consult Date of Consultation: 07/05/17 Reason for Consultation: Distributive Shock History of Present Illness: The patient is a 52-year-old male, with a history as outlined below, who presented to the emergency department initially on July 04 with complaints of a subjective fever and nonproductive cough. Plain film chest imaging revealed the presence of a right upper lobe pneumonia, for which the patient received supplemental IV fluids and was started on CAP coverage with azithromycin and ceftriaxone. Patient was subsequently admitted to the medical surgical floor. On hospital day #2, the patient went on to develop an NSTEMI, which prompted his transfer to the progressive care unit. Of note, the patient does have a history of nonischemic cardiomyopathy for which she is status post ICD placement. Surface echocardiogram revealed severe global LV systolic dysfunction with ejection fraction of 20% and evidence of severe stage III diastolic dysfunction. There was also note of severe mitral valve insufficiency. The patient currently has a net positive fluid balance of 2.8 L. However, no urine output has been documented. On presentation, the patient also had evidence of acute kidney injury, which has worsened over the course of his hospitalization. The patient's infectious workup revealed the presence of influenza A subtype H1. The patient is currently on Tamiflu. On the afternoon of July 05, the patient reportedly became exceedingly hypotensive during his surface echocardiogram. Prior to this, the patient had reported the presence of chest pain, for which he was medicated with 2 mg of IV morphine. Fluids were administered and the patient was subsequently transferred to the medical intensive care unit for ongoing management. Past Medical History Past Medical History (Chronic Problems): Chronic Problems Nonischemic cardiomyopathy (Chronic) chronic heart failure status post AICD (Chronic) History of smoking and illicit subst use (Chronic) History of substance use (Chronic) Allergies No Known Allergies Allergy (Verified 07/04/17 09:54) Home Medications: Ambulatory Orders Medication Instructions Recorded Amlodipine [Norvasc] 10 mg PO DAILY 03/21/13 Carvedilol [Coreg] 25 mg PO BID 03/21/13 Lisinopril 20 mg PO DAILY #30 tablet 01/17/17 Benzonatate [Tessalon Perle] 100 mg PO TID PRN PRN #20 capsule 06/29/17 Levofloxacin [Levaquin] 750 mg PO DAILY #10 tab 07/04/17 Surgical History: - - Implantable defibrillator Smoking Status: Former smoker Alcohol: None Drugs: None - *Family History Paternal History Items: No pertinent history Review of Systems Unable to obtain accurate/complete ROS d/t: Due to encephalopathic state currently. Patient Problems: Active and Suspected Problems Ex-smoker (Acute) Right upper lobe and lower lobe CAP (Acute) Objective: The patient's most recent lab work, culture data and imaging studies have all been personally reviewed. - Physical Exam General: Disoriented, Lethargic HEENT: Atraumatic, PERRLA, Normocephalic Oral: No Gingival or Mucosal Lesions/ Ulcerations Neck: Supple, No Nodes, Trachea Midline Lungs: No rhonchi, No wheeze, No rales, Diminished, Tachypneic Cardiovascular: Normal S1, Normal S2, No murmurs, Tachycardic Abdomen: Bowel Sounds Present, Soft, Non Tender Extremities: No clubbing, No cyanosis, No edema, Cool, Diminished Peripheral Pulses Skin: No rashes, No breakdown Musculoskeletal: No Tenderness to Palpation of Joints or Extremities Neurological: Neuro grossly intact Psych/Mental Status: Anxious, Restless Vital Signs Temp Pulse Resp BP Pulse Ox 97.8 F 87 21 H 100/57 L 93 07/05/17 08:54 07/05/17 11:20 07/05/17 11:20 07/05/17 08:54 07/05/17 08:54 Oxygen Delivery Method Room Air Weight: 113 lb 5.082 oz Body Mass Index (BMI) 17.2 Intake and Output for Last 24 Hours 07/03/17 07/04/17 07/05/17 23:59 23:59 23:59 Intake Total 843 / 843 1994 Balance 843 / 843 1994 Microbiology Past 72 Hours 07/04/17 14:17 Respiratory Panel (PCR) - Final Mucosa - Nose Influenza A (Subtype H1) 07/04/17 23:00 Streptococcus pneumoniae Antigen (M - Final Urine, Clean Catch 07/04/17 23:00 Legionella Antigen - Final Urine, Clean Catch Laboratory Tests Past 24 Hrs 07/04/17 07/04/17 07/05/17 21:07 23:00 00:00 PT INR APTT Sodium Potassium Chloride Carbon Dioxide Anion Gap BUN Creatinine Estim Creat Clear Calc Est GFR (MDRD) Af Amer Est GFR (MDRD) Non-Af BUN/Creatinine Ratio Glucose Calcium Magnesium 2.2 Troponin I 0.39 H 0.45 H B-Natriuretic Peptide Triglycerides Cholesterol LDL Cholesterol VLDL Cholesterol HDL Cholesterol Urine Color Yellow Urine Clarity Sl. Cloudy Urine pH 5.0 Ur Specific [place] 1.025 Urine Protein 100 H Urine Glucose (UA) Normal Urine Ketones Negative Urine Occult Blood 150 H Urine Nitrite Negative Urine Bilirubin Negative Urine Urobilinogen Normal Ur Leukocyte Esterase Negative 07/05/17 07/05/17 07/05/17 04:12 04:12 05:50 PT INR APTT 41.7 H Sodium 133 L Potassium 3.7 Chloride 100 Carbon Dioxide 24.0 Anion Gap 9 BUN 36 H Creatinine 1.83 H Estim Creat Clear Calc 33.94 Est GFR (MDRD) Af Amer 50 L Est GFR (MDRD) Non-Af 41 L BUN/Creatinine Ratio 19.7 Glucose 115 H Calcium 7.2 L Magnesium Troponin I 0.41 H B-Natriuretic Peptide 422.2 H Triglycerides 88 Cholesterol 84 LDL Cholesterol 28 VLDL Cholesterol 18 HDL Cholesterol 38 L Urine Color Urine Clarity Urine pH Ur Specific [place] Urine Protein Urine Glucose (UA) Urine Ketones Urine Occult Blood Urine Nitrite Urine Bilirubin Urine Urobilinogen Ur Leukocyte Esterase 07/05/17 07/05/17 05:50 09:55 PT 14.1 INR 1.1 APTT Sodium Potassium Chloride Carbon Dioxide Anion Gap BUN Creatinine Estim Creat Clear Calc Est GFR (MDRD) Af Amer Est GFR (MDRD) Non-Af BUN/Creatinine Ratio Glucose Calcium Magnesium Troponin I 0.30 H B-Natriuretic Peptide Triglycerides Cholesterol LDL Cholesterol VLDL Cholesterol HDL Cholesterol Urine Color Urine Clarity Urine pH Ur Specific [place] Urine Protein Urine Glucose (UA) Urine Ketones Urine Occult Blood Urine Nitrite Urine Bilirubin Urine Urobilinogen Ur Leukocyte Esterase Clinical Impression(s) from Imaging Studies Chest X-Ray 07/04/17 10:25 IMPRESSION: Right upper lobe consolidation. Focal infiltrate in the superior segment of the right lower lobe. Electronically Signed: Rob Gallegos MD at 11:02 EDT Tel [phone], Service support , Assessment/Plan Active and Suspected Problems Ex-smoker (Acute) Right upper lobe and lower lobe CAP (Acute) RECOMMENDATIONS: 1. Stop supplemental IVF's 2. Insert PICC line and start levophed to maintain hemodynamic stability 3. Discontinue all antihypertensives and opiate pain medications 4. Broaden antibiotics to include Vancomycin and Zosyn 5. Send blood, urine and sputum cultures. 6. Check serum lactate 7. Place plunkett catheter to document accurate I/O's 8. Check toxicology screen 9. Discontinue order for CT Head 10. Repeat plain film CXR in AM 11. Discontinue heparin drip IMPRESSIONS: 1. Distributive shock in the setting of polypharmacy and influenza A with superimposed community-acquired pneumonia Likely multifactorial in etiology with antihypertensive and opiate polypharmacy , in conjunction with pulmonary infectious process, contributing. All antihypertensives and opiate pain medications have been discontinued. PICC line will be placed and the patient will be started on Levophed to maintain a mean arterial pressure at or above 65 mmHg. Antibiotics will be broadened and repeat cultures obtained. Discontinue fluid boluses given the patient's severely depressed ejection fraction. Plan to repeat plain film chest x-ray in the morning. 2. History of nonischemic cardiomyopathy with combined systolic/diastolic heart failure/NSTEMI Cardiology is following. Upon stabilization, recommend slow, conservative reintroduction of beta-miley and CHUNG inhibitor. Continue to trend troponins. 3. Acute kidney injury The patient presented to the hospital with evidence of acute kidney injury. Etiology is unclear, although the patient's creatinine has improved with a small amount of fluid replacement, suggesting prerenal etiology. May wish to hold off restarting CHUNG inhibitor until renal function improves. Plan to Place Plunkett catheter. Will continue to monitor urine output. No indication for renal replacement therapy at this time. 4. Shock Liver Likely secondary to hemodynamic instability in the setting of #1. Anticipate improvement with stabilization of hemodynamics. 5. Mild lactic acidemia secondary to #1 Plan to repeat serum lactate in 6 hours, which I anticipate will have normalized in the setting of stabilized hemodynamics. TIME: 50 minutes of critical care time, independent of procedures, was spent addressing the patient's distributive shock, polypharmacy, influenza A, community-acquired pneumonia, nonischemic cardiomyopathy, non-ST elevation SC, acute kidney injury, shock liver, lactic acidemia, review of all data and collaboration with the care team. ([id number]) Code Visit 9xxxx: [id number] Critical care first hour
[2017-07-05 17:00] LABS: Bedside Glucose 119 mg/dL (70-110)
[2017-07-05 17:32] LABS: Bacteria 0 SEEN /hpf (None Seen); Mucous, Urine 0 SEEN /hpf (<or=2+); Red Blood Cells-Urine 0 SEEN /hpf (0-5); Squamous Epithelial Cells - UA 0 SEEN /hpf (0-5)
[2017-07-05 17:38] LABS: Absolute Lymphocyte Count 1.22 X10^3/ul (0.83-4.51); Basophil# 0.02 X10^3/uL; Basophil% 0.4 % (0-1); Eosinophil# 0.01 X10^3/uL; Eosinophils% 0.2 % (0-5); Hematocrit 35.3 % (40-54); Hemoglobin 12.3 g/dl (13.0-16.5); Lymphocyte # 1.22 X10^3/ul (4.0); Lymphocyte % 21.5 % (19-41); Mean Corp Hgb Conc 34.8 g/gl (32-36); Mean Corpuscular Hgb 34.4 pg (27.0-32.0); Mean Corpuscular Volume 98.6 fL (80-94); Mean Platelet Vol. 10.4 fl (6.2-12.0); Monocyte# 0.31 X10^3/uL; Monocyte% 5.5 % (0-10); Neutrophil # 4.04 X10^3/uL (2.7-7.7); Neutrophil % 71.2 % (47-70); Platelet Count 119 K/mm3 (150-450); RBC Distribution Width CV 13.3 % (11.6-14.6); RBC Distribution Width SD 46.6 fl (35.1-43.9); Red Blood Count 3.58 M/mm3 (4.6-6.2); White Blood Count 5.7 K/mm3 (4.4-11.0)
[2017-07-05 17:40] LABS: Color, Urine Yellow (Yellow); Glucose, Dipstick Normal (Normal); Ketone-Dipstick Negative (Negative); Leukocyte Esterase-Dipstick Negative /ul (Negative); Nitrite-Dipstick Negative (Negative); Occult Blood-Urine 10 /ul (Negative); Protein-Dipstick 100 mg/dl (Negative); Specific Gravity, Urine 1.025 (1.002-1.030); Urine Bilirubin Dipstick Negative (Negative); Urine Clarity Sl. Cloudy (Clear); Urine Urobilinogen Normal (Normal)
[2017-07-05 17:41] LABS: POSITIVE COUNT NO; POSITIVE DIFFERENTIAL NO; POSITIVE MORPHOLOGY NO
[2017-07-05 17:53] LABS: Amorphous Sediment 1+; Hyaline Cast 0-5 SEEN /lpf (0-5); International Normalized Ratio 1.2; White Blood Cells 0-5 SEEN /hpf (0-5)
[2017-07-05 18:12] LABS: ALB/GLOB Ratio 0.8 RATIO (0.9-2.4); AST(SGOT) 462 U/L (15-37); Alanine Aminotransfer ALT/SGPT 221 U/L (16-61); Albumin, Serum 2.2 g/dL (3.2-5.0); Alkaline Phosphatase 109 U/L (45-117); Anion Gap 9 (5-15); BUN 43 mg/dL (7-18); BUN/Creat Ratio 21.6 RATIO (10-20); Calcium,Total 6.4 mg/dL (8.5-10.1); Chloride 103 mmol/L (98-107); Creatinine, Serum 1.99 mg/dL (0.70-1.30); EST Glomerular Filtration Rate 38 mL/min (>60); Est Glom Filt Rate - Afr Amer 45 mL/min (>60); Estimated Creatinine Clearance 31.21 ml/min; Globulin 2.7 g/dL (2.2-4.2); Glucose 250 mg/dL (74-106); Lactic Acid 2.4 mmol/L (0.4-2.0); Magnesium 2.4 mg/dL (1.6-2.6); Partial Thromboplast Time 206.3 Seconds (24.1-36.2); Protein, Total 4.9 g/dL (6.4-8.2); Sodium Level 134 mmol/L (136-145)
[2017-07-05 18:34] LABS: Vista UDS pH Range 5
[2017-07-05 18:35] LABS: Amphetamine Urine VISTA NEGATIVE (<1000 ng/mL); Barbiturate Urine VISTA NEGATIVE (< 200 ng/mL); Benzodiazepine Urine VISTA NEGATIVE (< 200 ng/mL); Cocaine Urine VISTA NEGATIVE (< 300 ng/mL); Ecstacy Urine VISTA NEGATIVE (< 500 ng/mL); Methadone Urine VISTA NEGATIVE (< 300 ng/mL); PCP Urine VISTA NEGATIVE (< 25 ng/mL); THC Urine VISTA POSITIVE (< 50 ng/mL)
[2017-07-05] MEDS: Piperacil/Tazobactam 3.375 GM/50 ML ML IV (19:36)
[2017-07-05 21:15] LABS: M R Staph aureus DNA By PCR Negative (Negative); Probe Check PASS; Specimen Processing Control PASS
[2017-07-05 21:24] LABS: Reflex Lactate? Y
[2017-07-05 21:44] LABS: Lactic Acid 1.1 mmol/L (0.4-2.0)
[2017-07-05] MEDS: Atorvastatin Calcium 80 MG Tablet PO (22:09)
[2017-07-05] MEDS: Oseltamivir Phosphate 30 MG Capsule PO (22:12)
[2017-07-05] MEDS: 0.9% NaCl Peripheral Flush Adult/Peds IV ×2 (22:16→22:17)
[2017-07-06] VITALS (30 sets, daily range): BP systolic 88–118; BP diastolic 66–90; PULSE 69–87; RESP 11–23; TEMP 36.4–37; O2SAT 95–100
--- NOTE | 2017-07-06 04:05 | RAD_ITS ---
STUDY: X-RAY CHEST REASON FOR EXAM: Male, 52 years old. Shortness of breath TECHNIQUE: Single frontal view COMPARISON: 07/04/2017 FINDINGS: Pacemaker leads are in proper position. There is a RIGHT-sided PICC line. The tip is in the superior vena cava. There is a residual RIGHT upper lobe infiltrate which has improved since the prior study. There are NO new infiltrates. There is no demonstrated pleural abnormality. Normal size heart. Normal mediastinum and gypsy. Normal visualized pulmonary arteries. Normal visualized aortic arch and descending thoracic aorta. Normal visualized thoracic spine. Normal visualized ribs, clavicles, and shoulders. There is no demonstrated abnormality of the visualized soft tissue structures of the upper abdomen. RAD/Chest 1 View (Portable) IMPRESSION: Pacemaker leads are in proper position. There is a RIGHT-sided PICC line. The tip is in the superior vena cava. There is a residual RIGHT upper lobe infiltrate which has improved since the prior study. There are NO new infiltrates. There is no demonstrated pleural abnormality. Normal size heart. Electronically Signed: Sunil Steiner MD at 7:35 EDT , Service support ,
[2017-07-06] MEDS: Piperacil/Tazobactam 3.375 GM/50 ML ML IV ×3 (05:32→22:12)
[2017-07-06] MEDS: Benzonatate 100 MG Capsule 200 MG PO ×3 (05:32→22:13)
[2017-07-06] MEDS: 0.9% NaCl Peripheral Flush Adult/Peds IV (05:33)
[2017-07-06 05:53] LABS: Absolute Neutrophil Count 2.9 X10^3/uL (2.0-7.7); Basophil# 0.01 X10^3/uL; Basophil% 0.2 % (0-1); Hematocrit 34.7 % (40-54); Hemoglobin 11.9 g/dl (13.0-16.5); Lymphocyte % 26.9 % (19-41); Mean Corp Hgb Conc 34.3 g/gl (32-36); Mean Corpuscular Hgb 33.7 pg (27.0-32.0); Mean Corpuscular Volume 98.3 fL (80-94); Mean Platelet Vol. 10.2 fl (6.2-12.0); Monocyte# 0.38 X10^3/uL; Monocyte% 8.5 % (0-10); Neutrophil # 2.86 X10^3/uL (2.7-7.7); Neutrophil % 64.2 % (47-70); POSITIVE COUNT NO; POSITIVE DIFFERENTIAL NO; POSITIVE MORPHOLOGY NO; Platelet Count 120 K/mm3 (150-450); RBC Distribution Width CV 13.5 % (11.6-14.6); RBC Distribution Width SD 48.6 fl (35.1-43.9); Red Blood Count 3.53 M/mm3 (4.6-6.2); White Blood Count 4.5 K/mm3 (4.4-11.0)
[2017-07-06 06:10] LABS: ALB/GLOB Ratio 0.8 RATIO (0.9-2.4); AST(SGOT) 301 U/L (15-37); Alanine Aminotransfer ALT/SGPT 194 U/L (16-61); Albumin, Serum 2.3 g/dL (3.2-5.0); Alkaline Phosphatase 97 U/L (45-117); Anion Gap 8 (5-15); BUN 39 mg/dL (7-18); Calcium,Total 7.1 mg/dL (8.5-10.1); Chloride 101 mmol/L (98-107); Creatinine, Serum 1.56 mg/dL (0.70-1.30); EST Glomerular Filtration Rate 50 mL/min (>60); Est Glom Filt Rate - Afr Amer 60 mL/min (>60); Estimated Creatinine Clearance 42.29 ml/min; Globulin 2.9 g/dL (2.2-4.2); Glucose 99 mg/dL (74-106); Protein, Total 5.2 g/dL (6.4-8.2); Sodium Level 133 mmol/L (136-145)
--- NOTE | 2017-07-06 06:55 | PCM.PN.INT ---
Subjective: The patient was seen and examined at the bedside this morning. Events from the last 24 hours have been reviewed. The patient is currently afebrile, hemodynamically stable and maintaining appropriate oxygen saturations on room air. The patient's levophed was weaned off completely around midnight. His Med[place] catheter had to be removed overnight due to malfunctioning. His encephalopathy has improved. The patient reports only a mild degree of back pain, which he attributes to laying in bed so much. He denies the presence of shortness of breath or cough. The patient does report prior crack cocaine use approximately 20 years ago. He does report occasional marijuana use. He does have a cigarette smoking history of approximately 20 years duration, but states that he quit 3 weeks ago. Repeat plain film chest imaging from this morning revealed appropriately positioned PICC line and stable appearing right upper lobe infiltrate. No other pulmonary infectious process was identified. Objective: The patient's most recent lab work, culture data and imaging studies have all been personally reviewed. Plain film chest x-ray obtained on presentation revealed evidence of a right upper lobe consolidation. Surface echocardiogram completed on July 05 revealed an ejection fraction of 20% with severe global LV systolic dysfunction and stage III diastolic dysfunction. The patient also had moderately severe mitral valve insufficiency and a pulmonary artery systolic pressure of 22 mmHg. Respiratory viral panel obtained on July 04 was positive for influenza A. Blood cultures have shown no growth today. Strep and urine Legionella antigens were both negative. C. difficile testing was negative. MRSA screen was negative. General: Alert, Oriented x3, Cooperative, No apparent distress HEENT: Atraumatic, PERRLA, Normocephalic Oral: No Gingival or Mucosal Lesions/ Ulcerations, Dry Mucosa Neck: Supple, No Nodes, Trachea Midline Lungs: No rhonchi, No wheeze, No rales, Diminished Cardiovascular: Regular rate, Regular Rhythm, Normal S1, Normal S2, No murmurs, No rub noted, No Gallop Abdomen: Bowel Sounds Present, Soft, Non Tender, Non-Distended Extremities: No clubbing, No cyanosis, No edema Skin: No rashes Musculoskeletal: No Tenderness to Palpation of Joints or Extremities Lymphatic: No Cervical, Supraclavicular, or Inguinal Adenopathy Neurological: Neuro grossly intact Psych/Mental Status: Normal Affect, Appropriate Vital Signs Temp Pulse Resp BP Pulse Ox 97.7 F L 77 15 105/76 100 07/06/17 06:00 07/06/17 06:00 07/06/17 06:00 07/06/17 06:00 07/06/17 06:00 Oxygen Flow Rate (L/min) 2 Oxygen Delivery Method Room Air Weight: 120 lb 5.958 oz Body Mass Index (BMI) 17.2 Intake and Output for Last 24 Hours 07/04/17 07/05/17 07/06/17 23:59 23:59 23:59 Intake Total 843 / 843 1994 Output Total 550 / 550 Balance 843 / 843 1994 1452 / 1452 Labs (Last 48 Hours) 07/04/17 07/04/17 07/05/17 21:07 23:00 00:00 WBC RBC Hgb Hct MCV MCH MCHC RDW RDW Differential Plt Count MPV Immature Gran % (Auto) Neut % (Auto) Lymph % (Auto) [place] % (Auto) Eos % (Auto) Baso % (Auto) Absolute Neuts (auto) Absolute Lymphs (auto) Total Counted PT INR APTT Sodium Potassium Chloride Carbon Dioxide Anion Gap BUN Creatinine Estim Creat Clear Calc Est GFR (MDRD) Af Amer Est GFR (MDRD) Non-Af BUN/Creatinine Ratio Glucose Lactic Acid Calcium Magnesium 2.2 Total Bilirubin AST ALT Alkaline Phosphatase Troponin I 0.39 H 0.45 H B-Natriuretic Peptide Total Protein Albumin Globulin Albumin/Globulin Ratio Triglycerides Cholesterol LDL Cholesterol VLDL Cholesterol HDL Cholesterol Urine Color Yellow Urine Clarity Sl. Cloudy Urine pH 5.0 Ur Specific [place] 1.025 Urine Protein 100 H Urine Glucose (UA) Normal Urine Ketones Negative Urine Occult Blood 150 H Urine Nitrite Negative Urine Bilirubin Negative Urine Urobilinogen Normal Ur Leukocyte Esterase Negative Urine RBC Urine WBC Ur Squamous Epith Cells Amorphous Sediment Urine Bacteria Hyaline Casts Urine Mucus Urine Opiates Screen Urine Methadone Screen Ur Barbiturates Screen Ur Phencyclidine Scrn Ur Amphetamines Screen U Methamphetamin-MDMA U Benzodiazepines Scrn Urine Cocaine Screen U Cannabinoids Screen Ur Drug Screen Comment MRSA (PCR) POC Glucose 07/05/17 07/05/17 07/05/17 04:12 04:12 05:50 WBC RBC Hgb Hct MCV MCH MCHC RDW RDW Differential Plt Count MPV Immature Gran % (Auto) Neut % (Auto) Lymph % (Auto) [place] % (Auto) Eos % (Auto) Baso % (Auto) Absolute Neuts (auto) Absolute Lymphs (auto) Total Counted PT INR APTT 41.7 H Sodium 133 L Potassium 3.7 Chloride 100 Carbon Dioxide 24.0 Anion Gap 9 BUN 36 H Creatinine 1.83 H Estim Creat Clear Calc 33.94 Est GFR (MDRD) Af Amer 50 L Est GFR (MDRD) Non-Af 41 L BUN/Creatinine Ratio 19.7 Glucose 115 H Lactic Acid Calcium 7.2 L Magnesium Total Bilirubin AST ALT Alkaline Phosphatase Troponin I 0.41 H B-Natriuretic Peptide 422.2 H Total Protein Albumin Globulin Albumin/Globulin Ratio Triglycerides 88 Cholesterol 84 LDL Cholesterol 28 VLDL Cholesterol 18 HDL Cholesterol 38 L Urine Color Urine Clarity Urine pH Ur Specific [place] Urine Protein Urine Glucose (UA) Urine Ketones Urine Occult Blood Urine Nitrite Urine Bilirubin Urine Urobilinogen Ur Leukocyte Esterase Urine RBC Urine WBC Ur Squamous Epith Cells Amorphous Sediment Urine Bacteria Hyaline Casts Urine Mucus Urine Opiates Screen Urine Methadone Screen Ur Barbiturates Screen Ur Phencyclidine Scrn Ur Amphetamines Screen U Methamphetamin-MDMA U Benzodiazepines Scrn Urine Cocaine Screen U Cannabinoids Screen Ur Drug Screen Comment MRSA (PCR) POC Glucose 07/05/17 07/05/17 07/05/17 05:50 09:55 14:10 WBC RBC Hgb Hct MCV MCH MCHC RDW RDW Differential Plt Count MPV Immature Gran % (Auto) Neut % (Auto) Lymph % (Auto) [place] % (Auto) Eos % (Auto) Baso % (Auto) Absolute Neuts (auto) Absolute Lymphs (auto) Total Counted PT 14.1 INR 1.1 APTT Sodium Potassium Chloride Carbon Dioxide Anion Gap BUN Creatinine Estim Creat Clear Calc Est GFR (MDRD) Af Amer Est GFR (MDRD) Non-Af BUN/Creatinine Ratio Glucose Lactic Acid Calcium Magnesium Total Bilirubin AST ALT Alkaline Phosphatase Troponin I 0.30 H B-Natriuretic Peptide Total Protein Albumin Globulin Albumin/Globulin Ratio Triglycerides Cholesterol LDL Cholesterol VLDL Cholesterol HDL Cholesterol Urine Color Urine Clarity Urine pH Ur Specific [place] Urine Protein Urine Glucose (UA) Urine Ketones Urine Occult Blood Urine Nitrite Urine Bilirubin Urine Urobilinogen Ur Leukocyte Esterase Urine RBC Urine WBC Ur Squamous Epith Cells Amorphous Sediment Urine Bacteria Hyaline Casts Urine Mucus Urine Opiates Screen Urine Methadone Screen Ur Barbiturates Screen Ur Phencyclidine Scrn Ur Amphetamines Screen U Methamphetamin-MDMA U Benzodiazepines Scrn Urine Cocaine Screen U Cannabinoids Screen Ur Drug Screen Comment MRSA (PCR) Negative POC Glucose 07/05/17 07/05/17 07/05/17 15:51 17:05 17:10 WBC RBC Hgb Hct MCV MCH MCHC RDW RDW Differential Plt Count MPV Immature Gran % (Auto) Neut % (Auto) Lymph % (Auto) [place] % (Auto) Eos % (Auto) Baso % (Auto) Absolute Neuts (auto) Absolute Lymphs (auto) Total Counted PT INR APTT 206.3 H* Sodium Potassium Chloride Carbon Dioxide Anion Gap BUN Creatinine Estim Creat Clear Calc Est GFR (MDRD) Af Amer Est GFR (MDRD) Non-Af BUN/Creatinine Ratio Glucose Lactic Acid Calcium Magnesium Total Bilirubin AST ALT Alkaline Phosphatase Troponin I B-Natriuretic Peptide Total Protein Albumin Globulin Albumin/Globulin Ratio Triglycerides Cholesterol LDL Cholesterol VLDL Cholesterol HDL Cholesterol Urine Color Urine Clarity Urine pH Ur Specific [place] Urine Protein Urine Glucose (UA) Urine Ketones Urine Occult Blood Urine Nitrite Urine Bilirubin Urine Urobilinogen Ur Leukocyte Esterase Urine RBC Urine WBC Ur Squamous Epith Cells Amorphous Sediment Urine Bacteria Hyaline Casts Urine Mucus Urine Opiates Screen Cancelled Urine Methadone Screen Cancelled Ur Barbiturates Screen Cancelled Ur Phencyclidine Scrn Cancelled Ur Amphetamines Screen Cancelled U Methamphetamin-MDMA Cancelled U Benzodiazepines Scrn Cancelled Urine Cocaine Screen Cancelled U Cannabinoids Screen Cancelled Ur Drug Screen Comment Cancelled MRSA (PCR) POC Glucose 119 H 07/05/17 07/05/17 07/05/17 17:10 17:10 17:10 WBC 5.7 RBC 3.58 L Hgb 12.3 L Hct 35.3 L MCV 98.6 H MCH 34.4 H MCHC 34.8 RDW 13.3 RDW Differential 46.6 H Plt Count 119 L MPV 10.4 Immature Gran % (Auto) 1.200 H Neut % (Auto) 71.2 H Lymph % (Auto) 21.5 [place] % (Auto) 5.5 Eos % (Auto) 0.2 Baso % (Auto) 0.4 Absolute Neuts (auto) 4.0 Absolute Lymphs (auto) 1.22 Total Counted Not Reportable PT INR APTT Sodium 134 L Potassium 5.0 Chloride 103 Carbon Dioxide 22.0 Anion Gap 9 BUN 43 H Creatinine 1.99 H Estim Creat Clear Calc 31.21 Est GFR (MDRD) Af Amer 45 L Est GFR (MDRD) Non-Af 38 L BUN/Creatinine Ratio 21.6 H Glucose 250 H Lactic Acid Calcium 6.4 L* Magnesium 2.4 Total Bilirubin 0.50 AST 462 H ALT 221 H Alkaline Phosphatase 109 Troponin I 0.21 H B-Natriuretic Peptide Total Protein 4.9 L Albumin 2.2 L Globulin 2.7 Albumin/Globulin Ratio 0.8 L Triglycerides Cholesterol LDL Cholesterol VLDL Cholesterol HDL Cholesterol Urine Color Urine Clarity Urine pH Ur Specific [place] Urine Protein Urine Glucose (UA) Urine Ketones Urine Occult Blood Urine Nitrite Urine Bilirubin Urine Urobilinogen Ur Leukocyte Esterase Urine RBC Urine WBC Ur Squamous Epith Cells Amorphous Sediment Urine Bacteria Hyaline Casts Urine Mucus Urine Opiates Screen POSITIVE H Urine Methadone Screen NEGATIVE Ur Barbiturates Screen NEGATIVE Ur Phencyclidine Scrn NEGATIVE Ur Amphetamines Screen NEGATIVE U Methamphetamin-MDMA NEGATIVE U Benzodiazepines Scrn NEGATIVE Urine Cocaine Screen NEGATIVE U Cannabinoids Screen POSITIVE H Ur Drug Screen Comment MRSA (PCR) POC Glucose 07/05/17 07/05/17 07/05/17 17:10 17:10 17:10 WBC RBC Hgb Hct MCV MCH MCHC RDW RDW Differential Plt Count MPV Immature Gran % (Auto) Neut % (Auto) Lymph % (Auto) [place] % (Auto) Eos % (Auto) Baso % (Auto) Absolute Neuts (auto) Absolute Lymphs (auto) Total Counted PT 15.0 H INR 1.2 APTT Sodium Potassium Chloride Carbon Dioxide Anion Gap BUN Creatinine Estim Creat Clear Calc Est GFR (MDRD) Af Amer Est GFR (MDRD) Non-Af BUN/Creatinine Ratio Glucose Lactic Acid 2.4 H Calcium Magnesium Total Bilirubin AST ALT Alkaline Phosphatase Troponin I B-Natriuretic Peptide Total Protein Albumin Globulin Albumin/Globulin Ratio Triglycerides Cholesterol LDL Cholesterol VLDL Cholesterol HDL Cholesterol Urine Color Yellow Urine Clarity Sl. Cloudy Urine pH 5.0 Ur Specific [place] 1.025 Urine Protein 100 H Urine Glucose (UA) Normal Urine Ketones Negative Urine Occult Blood 10 H Urine Nitrite Negative Urine Bilirubin Negative Urine Urobilinogen Normal Ur Leukocyte Esterase Negative Urine RBC 0 SEEN Urine WBC 0-5 SEEN Ur Squamous Epith Cells 0 SEEN Amorphous Sediment 1+ Urine Bacteria 0 SEEN Hyaline Casts 0-5 SEEN Urine Mucus 0 SEEN Urine Opiates Screen Urine Methadone Screen Ur Barbiturates Screen Ur Phencyclidine Scrn Ur Amphetamines Screen U Methamphetamin-MDMA U Benzodiazepines Scrn Urine Cocaine Screen U Cannabinoids Screen Ur Drug Screen Comment MRSA (PCR) POC Glucose 07/05/17 07/05/17 07/06/17 21:00 21:00 01:15 WBC RBC Hgb Hct MCV MCH MCHC RDW RDW Differential Plt Count MPV Immature Gran % (Auto) Neut % (Auto) Lymph % (Auto) [place] % (Auto) Eos % (Auto) Baso % (Auto) Absolute Neuts (auto) Absolute Lymphs (auto) Total Counted PT INR APTT Sodium Potassium Chloride Carbon Dioxide Anion Gap BUN Creatinine Estim Creat Clear Calc Est GFR (MDRD) Af Amer Est GFR (MDRD) Non-Af BUN/Creatinine Ratio Glucose Lactic Acid 1.1 Calcium Magnesium Total Bilirubin AST ALT Alkaline Phosphatase Troponin I 0.17 H 0.17 H B-Natriuretic Peptide Total Protein Albumin Globulin Albumin/Globulin Ratio Triglycerides Cholesterol LDL Cholesterol VLDL Cholesterol HDL Cholesterol Urine Color Urine Clarity Urine pH Ur Specific [place] Urine Protein Urine Glucose (UA) Urine Ketones Urine Occult Blood Urine Nitrite Urine Bilirubin Urine Urobilinogen Ur Leukocyte Esterase Urine RBC Urine WBC Ur Squamous Epith Cells Amorphous Sediment Urine Bacteria Hyaline Casts Urine Mucus Urine Opiates Screen Urine Methadone Screen Ur Barbiturates Screen Ur Phencyclidine Scrn Ur Amphetamines Screen U Methamphetamin-MDMA U Benzodiazepines Scrn Urine Cocaine Screen U Cannabinoids Screen Ur Drug Screen Comment MRSA (PCR) POC Glucose 07/06/17 07/06/17 05:40 05:40 WBC 4.5 RBC 3.53 L Hgb 11.9 L Hct 34.7 L MCV 98.3 H MCH 33.7 H MCHC 34.3 RDW 13.5 RDW Differential 48.6 H Plt Count 120 L MPV 10.2 Immature Gran % (Auto) 0.200 Neut % (Auto) 64.2 Lymph % (Auto) 26.9 [place] % (Auto) 8.5 Eos % (Auto) 0.0 Baso % (Auto) 0.2 Absolute Neuts (auto) 2.9 Absolute Lymphs (auto) 1.20 Total Counted Not Reportable PT INR APTT Sodium 133 L Potassium 4.0 Chloride 101 Carbon Dioxide 24.0 Anion Gap 8 BUN 39 H Creatinine 1.56 H Estim Creat Clear Calc 42.29 Est GFR (MDRD) Af Amer 60 Est GFR (MDRD) Non-Af 50 L BUN/Creatinine Ratio 25.0 H Glucose 99 Lactic Acid Calcium 7.1 L Magnesium Total Bilirubin 0.30 AST 301 H ALT 194 H Alkaline Phosphatase 97 Troponin I 0.18 H B-Natriuretic Peptide Total Protein 5.2 L Albumin 2.3 L Globulin 2.9 Albumin/Globulin Ratio 0.8 L Triglycerides Cholesterol LDL Cholesterol VLDL Cholesterol HDL Cholesterol Urine Color Urine Clarity Urine pH Ur Specific [place] Urine Protein Urine Glucose (UA) Urine Ketones Urine Occult Blood Urine Nitrite Urine Bilirubin Urine Urobilinogen Ur Leukocyte Esterase Urine RBC Urine WBC Ur Squamous Epith Cells Amorphous Sediment Urine Bacteria Hyaline Casts Urine Mucus Urine Opiates Screen Urine Methadone Screen Ur Barbiturates Screen Ur Phencyclidine Scrn Ur Amphetamines Screen U Methamphetamin-MDMA U Benzodiazepines Scrn Urine Cocaine Screen U Cannabinoids Screen Ur Drug Screen Comment MRSA (PCR) POC Glucose Microbiology 07/05/17 23:00 Stool C. difficile DNA Amplification - Final 07/04/17 14:17 Mucosa - Nose Respiratory Panel (PCR) - Final Influenza A (Subtype H1) 07/04/17 23:00 Urine, Clean Catch Streptococcus pneumoniae Antigen (M - Final 07/04/17 23:00 Urine, Clean Catch Legionella Antigen - Final Clinical Impression(s) from Imaging Studies Chest X-Ray 07/04/17 10:25 IMPRESSION: Right upper lobe consolidation. Focal infiltrate in the superior segment of the right lower lobe. Electronically Signed: Rob Gallegos MD at 11:02 EDT Tel [phone], Service support , Clinical Impression(s) from Imaging Studies Chest X-Ray 07/04/17 10:25 IMPRESSION: Right upper lobe consolidation. Focal infiltrate in the superior segment of the right lower lobe. Electronically Signed: Rob Gallegos MD at 11:02 EDT Tel [phone], Service support , Chest X-Ray 07/06/17 04:05 IMPRESSION: Pacemaker leads are in proper position. There is a RIGHT-sided PICC line. The tip is in the superior vena cava. There is a residual RIGHT upper lobe infiltrate which has improved since the prior study. There are NO new infiltrates. There is no demonstrated pleural abnormality. Normal size heart. Electronically Signed: Sunil Steiner MD at 7:35 EDT , Service support , Assessment/Plan Active and Suspected Problems Ex-smoker (Acute) Right upper lobe and lower lobe CAP (Acute) RECOMMENDATIONS: 1. Discontinue vancomycin 2. Slow, cautious reintroduction of the patient's antihypertensive medications, one at a time. 3. Avoid opiate pain medications 4. Start subcu heparin for DVT prophylaxis 5. Advance diet 6. Encourage incentive spirometer use and mobilize patient as tolerated 7. Continue Tamiflu IMPRESSIONS: 1. Distributive shock in the setting of polypharmacy and influenza A with superimposed community-acquired pneumonia Likely multifactorial in etiology with antihypertensive and opiate polypharmacy, in conjunction with pulmonary infectious process, contributing. All antihypertensives and opiate pain medications have been discontinued. The patient was transiently on vasopressor support to maintain hemodynamic stability. This has since been discontinued. Vancomycin can be discontinued. Repeat plain film chest x-ray from this morning appears largely unchanged from previous. Okay to advance diet at this time and encourage p.o. intake. Strongly recommend slow, cautious reintroduction of the patient's antihypertensive medications. Avoid opiate pain medications in the future. 2. History of nonischemic cardiomyopathy with combined systolic/diastolic heart failure/NSTEMI Cardiology is following. Slow, conservative reintroduction of beta-miley and CHUNG inhibitor. 3. Acute kidney injury The patient presented to the hospital with evidence of acute kidney injury. Etiology is unclear, although the patient's creatinine has improved with a small amount of fluid replacement, suggesting prerenal etiology. May wish to hold off restarting CHUNG inhibitor until renal function improves. No indication for renal replacement therapy at this time 4. Shock Liver Likely secondary to hemodynamic instability in the setting of #1. Anticipate improvement with stabilization of hemodynamics. Continue to trend. 5. Tobacco abuse, now in remission/prior history of crack cocaine use/social THC and alcohol utilization Complicates care, management, recovery and prognosis. This note was generated with [employer] software. It may contain incorrect words, spelling, and punctuation that were not noted in checking the note before signing. DISPOSITION: The patient is medically stable for transfer out of the intensive care unit. Given the lack of ongoing ICU needs, will sign off. Please call with any additional questions. Code Visit Inpatient E&M: 67572 Subs Hosp L3
[2017-07-06] MEDS: Ipratropium/Albuterol Sulfate 3 ML AMPUL.NEB INHALATION ×4 (07:09→19:45)
[2017-07-06] MEDS: Aspirin 81 MG TAB.CHEW PO (08:20)
--- NOTE | 2017-07-06 08:40 | PCM.OPRPT ---
Problem List (1) Nonischemic cardiomyopathy Status: Chronic (2) chronic heart failure status post AICD Status: Chronic (3) History of smoking and illicit subst use Status: Chronic (4) History of substance use Status: Chronic (5) Ex-smoker Status: Acute (6) Right upper lobe and lower lobe CAP Status: Acute
--- NOTE | 2017-07-06 08:40 | PCM.PN.HOSP ---
Patient Problems: Active and Suspected Problems Ex-smoker (Acute) Right upper lobe and lower lobe CAP (Acute) Subjective: The patient was transferred to ICU yesterday after he has hypotension along with confusion, disorientation mild agitation suggestive of altered mental status. Hypotension due to polypharmacy he had 3 antihypertensive medications. Patient was on norepinephrine drip for short period of time. He also had one 3 mg IV Howard-Synephrine. He is off Levophed drip. Patient maintaining blood pressure on his own. No hypoxia. Vitals/I&O's: Vital Signs Temp Pulse Resp BP Pulse Ox 97.7 F L 75 14 115/88 H 95 07/06/17 06:00 07/06/17 07:10 07/06/17 07:10 07/06/17 07:00 07/06/17 07:10 Oxygen Flow Rate (L/min) 2 Oxygen Delivery Method Room Air Weight: 120 lb 5.958 oz Body Mass Index (BMI) 17.2 Intake and Output for Last 24 Hours 07/04/17 07/05/17 07/06/17 23:59 23:59 23:59 Intake Total 843 / 843 1994 Output Total 550 / 550 Balance 843 / 843 1994 1452 / 1452 General: Alert, Oriented x3, Cooperative HEENT: Atraumatic, PERRLA, EOMI, Normocephalic Neck: Supple, No JVD, Negative Carotid Bruits Lungs: No rhonchi, No wheeze, Diminished, Rales - Find rales on the posterior aspect of right lung Cardiovascular: Regular rate, Regular Rhythm, Normal S1, Normal S2, No murmurs, - - AICD Abdomen: Bowel Sounds Present, Soft, Non Tender, Non-Distended Extremities: No edema, Capillary Refill Less than 3 Seconds Skin: No rashes, No breakdown Musculoskeletal: No Tenderness to Palpation of Joints or Extremities Neurological: Cranial nerves II-XII grossly intact Psych/Mental Status: Normal Affect, Appropriate Microbiology Past 72 Hours 07/05/17 23:00 Stool C. difficile DNA Amplification - Final 07/04/17 14:17 Mucosa - Nose Respiratory Panel (PCR) - Final Influenza A (Subtype H1) 07/04/17 23:00 Urine, Clean Catch Streptococcus pneumoniae Antigen (M - Final 07/04/17 23:00 Urine, Clean Catch Legionella Antigen - Final Laboratory Results 07/05/17 09:55: Troponin I 0.30 H 07/05/17 14:10: MRSA (PCR) Negative 07/05/17 15:51: POC Glucose 119 H 07/05/17 17:05: Urine Opiates Screen Cancelled, Urine Methadone Screen Cancelled, Ur Barbiturates Screen Cancelled, Ur Phencyclidine Scrn Cancelled, Ur Amphetamines Screen Cancelled, U Methamphetamin-MDMA Cancelled, U Benzodiazepines Scrn Cancelled, Urine Cocaine Screen Cancelled, U Cannabinoids Screen Cancelled, Ur Drug Screen Comment Cancelled 07/05/17 17:10: APTT 206.3 H* 07/05/17 17:10: Sodium 134 L, Potassium 5.0, Chloride 103, Carbon Dioxide 22.0, Anion Gap 9, BUN 43 H, Creatinine 1.99 H, Estim Creat Clear Calc 31.21, Est GFR (MDRD) Af Amer 45 L, Est GFR (MDRD) Non-Af 38 L, BUN/Creatinine Ratio 21.6 H, Glucose 250 H, Calcium 6.4 L*, Magnesium 2.4, Total Bilirubin 0.50, AST 462 H, ALT 221 H, Alkaline Phosphatase 109, Troponin I 0.21 H, Total Protein 4.9 L, Albumin 2.2 L, Globulin 2.7, Albumin/Globulin Ratio 0.8 L 07/05/17 17:10: WBC 5.7, RBC 3.58 L, Hgb 12.3 L, Hct 35.3 L, MCV 98.6 H, MCH 34.4 H, MCHC 34.8, RDW 13.3, RDW Differential 46.6 H, Plt Count 119 L, MPV 10.4, Immature Gran % (Auto) 1.200 H, Neut % (Auto) 71.2 H, Lymph % (Auto) 21.5, [place] % (Auto) 5.5, Eos % (Auto) 0.2, Baso % (Auto) 0.4, Absolute Neuts (auto) 4.0, Absolute Lymphs (auto) 1.22, Total Counted Not Reportable 07/05/17 17:10: Urine Opiates Screen POSITIVE H, Urine Methadone Screen NEGATIVE, Ur Barbiturates Screen NEGATIVE, Ur Phencyclidine Scrn NEGATIVE, Ur Amphetamines Screen NEGATIVE, U Methamphetamin-MDMA NEGATIVE, U Benzodiazepines Scrn NEGATIVE, Urine Cocaine Screen NEGATIVE, U Cannabinoids Screen POSITIVE H, Ur Drug Screen Comment 07/05/17 17:10: PT 15.0 H, INR 1.2 07/05/17 17:10: Lactic Acid 2.4 H 07/05/17 17:10: Urine Color Yellow, Urine Clarity Sl. Cloudy, Urine pH 5.0, Ur Specific [place] 1.025, Urine Protein 100 H, Urine Glucose (UA) Normal, Urine Ketones Negative, Urine Occult Blood 10 H, Urine Nitrite Negative, Urine Bilirubin Negative, Urine Urobilinogen Normal, Ur Leukocyte Esterase Negative, Urine RBC 0 SEEN, Urine WBC 0-5 SEEN, Ur Squamous Epith Cells 0 SEEN, Amorphous Sediment 1+, Urine Bacteria 0 SEEN, Hyaline Casts 0-5 SEEN, Urine Mucus 0 SEEN 07/05/17 21:00: Troponin I 0.17 H 07/05/17 21:00: Lactic Acid 1.1 07/06/17 01:15: Troponin I 0.17 H 07/06/17 05:40: WBC 4.5, RBC 3.53 L, Hgb 11.9 L, Hct 34.7 L, MCV 98.3 H, MCH 33.7 H, MCHC 34.3, RDW 13.5, RDW Differential 48.6 H, Plt Count 120 L, MPV 10.2, Immature Gran % (Auto) 0.200, Neut % (Auto) 64.2, Lymph % (Auto) 26.9, [place] % (Auto) 8.5, Eos % (Auto) 0.0, Baso % (Auto) 0.2, Absolute Neuts (auto) 2.9, Absolute Lymphs (auto) 1.20, Total Counted Not Reportable 07/06/17 05:40: Sodium 133 L, Potassium 4.0, Chloride 101, Carbon Dioxide 24.0, Anion Gap 8, BUN 39 H, Creatinine 1.56 H, Estim Creat Clear Calc 42.29, Est GFR (MDRD) Af Amer 60, Est GFR (MDRD) Non-Af 50 L, BUN/Creatinine Ratio 25.0 H, Glucose 99, Calcium 7.1 L, Total Bilirubin 0.30, AST 301 H, ALT 194 H, Alkaline Phosphatase 97, Troponin I 0.18 H, Total Protein 5.2 L, Albumin 2.3 L, Globulin 2.9, Albumin/Globulin Ratio 0.8 L Current Medications Acetaminophen (Tylenol) 650 mg PO Q4H PRN PRN PRN Reason: fever/mild pain Al Hydroxide/Mg Hydroxide (Mylanta Ii) 30 ml PO Q6H PRN PRN PRN Reason: Gastric Burning Albuterol Sulfate (Ventolin Aerosols) 2.5 mg INHALATION Q2H PRN PRN PRN Reason: SHORTNESS OF BREATH Albuterol/Ipratropium (Duoneb) 3 ml INHALATION Q4HWA.RT [facility] Last Admin: 07/06/17 07:09 Dose: 3 ml Aspirin (Aspirin, Baby) 81 mg PO DAILY@0800 [facility] Last Admin: 07/06/17 08:20 Dose: 81 mg Atorvastatin Calcium (Lipitor) 80 mg PO QHS [facility] Last Admin: 07/05/17 22:09 Dose: 80 mg Benzonatate (Tessalon Perle) 200 mg PO TID [facility] Last Admin: 07/06/17 05:32 Dose: 200 mg Bisacodyl (Dulcolax) 10 mg RECTAL DAILY PRN PRN PRN Reason: Constipation Docusate Sodium (Colace) 200 mg PO BID PRN PRN PRN Reason: Constipation Famotidine (Pepcid) 20 mg PO DAILY [facility] Last Admin: 07/05/17 09:06 Dose: 20 mg Guaifenesin (Mucinex) 1,200 mg PO BID [facility] Last Admin: 07/05/17 22:09 Dose: 1,200 mg Heparin Sodium (Beef Lung) (Heparin 500 Unit/5 Ml (100/Ml)) 500 unit IV UD PRN PRN Reason: HEPARIN FLUSH Heparin Sodium (Porcine) (Heparin Na) 5,000 unit SC Q8 [facility] Piperacillin Sod/Tazobactam Sod (Zosyn) 3.375 gm in 50 mls @ 12.5 mls/hr IV Q8 [facility] Last Admin: 07/06/17 05:32 Dose: 12.5 mls/hr Sodium Chloride () 250 mls @ 15 mls/hr IV .[id number] PRN PRN Reason: SALINE FLUSH Nutritional Formula (Lactose Free) (Ensure Clear) 120 ml PO 4X/DAY [facility] Ondansetron HCl (Zofran) 4 mg IV Q8H PRN PRN PRN Reason: Nausea Oseltamivir Phosphate (Tamiflu) 30 mg PO BID [facility] Stop: 07/09/17 22:01 Last Admin: 07/05/17 22:12 Dose: 30 mg Polyethylene Glycol (Miralax) 17 gm PO DAILY [facility] Last Admin: 07/05/17 09:08 Dose: 17 gm Prochlorperazine Edisylate (Compazine) 10 mg IV Q6H PRN PRN PRN Reason: Nausea/Vomiting Sodium Chloride () 5 - 30 ml IV UD PRN PRN Reason: SALINE FLUSH Last Admin: 07/06/17 05:33 Dose: 10 ml Sodium Chloride () 10 - 20 ml IV UD PRN PRN Reason: PICC FLUSH Assessment/Plan Active and Suspected Problems Ex-smoker (Acute) Right upper lobe and lower lobe CAP (Acute) The patient is a 52 year old M with history of active smoker and polysubstance use, chronic heart failure with nonischemic cardiomyopathy status post AICD came to ER with progressive worsening of shortness of breath for 2-3 weeks. Patient also has fever with chills. Patient has cough, nonproductive in nature which is getting better. Patient easily gets short of breath at rest and even on mild exertion. In ED, his blood pressure was found elevated. Was mild tachypneic but no fever. Chest x-ray shows right upper lobe consolidation and focal infiltrate of superior segment of right lower lobe suggestive of multifocal pneumonia. Patient is started on IV ceftriaxone and Zithromax and continued. Patient was initially admitted on Medr and then transferred to PCU for EKG changes. 1. Atypical chest pain with hypotension possible unstable angina/ACS: Patient is being transferred to ICU. Serial troponin enzymes. 2D echo was done. Repeat EKG shows sinus bradycardia but no significant ST-T changes as compared to the previous one. Previous EKG shows normal sinus rhythm at 71 bpm with left anterior fascicular block with T inversion in anterolateral leads. Change Coordinator was consulted in the morning. Patient is on IV heparin drip. Chest pain is resolved. 2. Distributive shock, complicated with polypharmacy and superimposed community-acquired pneumonia with history of baseline severe chronic systolic heart failure with EF 20%: Blood pressure is stable short period of Levophed drip. Currently, of antihypertensive medication, if needed slowly start on Coreg. 3. Altered mental status most probably due to hypotension, metabolic encephalopathy: Resolved 4. Multifocal right upper lobe and lower lobe community acquired pneumonia: Urinary antigens are negative. Patient has influenza A positive. On Tamiflu since admission. Started on IV ceftriaxone and Zithromax and then changed to Zosyn. On bronchodilator as needed, incentive spirometry and Mucinex. 5. Elevated transaminases suggestive of acute liver injury due to shock/shock liver: Monitor LFT. ALT in 200s, AST in 400s. Follow the trends of LFT. 6.Nonischemic cardiomyopathy with chronic heart failure status post most probably due to polysubstance use in the past: As per our record, there is old exercise stress test report in 2013 was reported as normal submaximal treadmill stress ECG, negative for ischemia. 2D echo is reported as EF 20% with severe global left ventricular systolic dysfunction with severely stage III diastolic dysfunction. Normal right ventricular size and systolic function. Left atrium mildly enlarged. Normal right atrium. Moderately severe eccentric mitral valve regurgitation. Moderate TR with RVSP 22 mmHg. IVC dilated with partial collapse BNP 422. Hold antihypertensive medication 7. Moderate protein calorie malnutrition: Patient has BMI 17.2 kg/m?. Mild to moderate muscle atrophy in extremities. On ensure. Perhaps due to chronic heart failure and history of drug use other chronic comorbidities include hypertension: Fasting lipid profile is within normal limits except HDL 38. DVT prophylaxis: On IV heparin bilateral SCDs. Microbiology Past 72 Hours 07/04/17 14:00 Blood Culture (Wb) - Anticubital Right Blood Culture - Preliminary No growth in 48 hours. 07/05/17 23:00 Stool C. difficile DNA Amplification - Final 07/04/17 14:17 Mucosa - Nose Respiratory Panel (PCR) - Final Influenza A (Subtype H1) 07/04/17 23:00 Urine, Clean Catch Streptococcus pneumoniae Antigen (M - Final 07/04/17 23:00 Urine, Clean Catch Legionella Antigen - Final Laboratory Results 07/05/17 14:10: MRSA (PCR) Negative 07/06/17 05:40: WBC 4.5, RBC 3.53 L, Hgb 11.9 L, Hct 34.7 L, MCV 98.3 H, MCH 33.7 H, MCHC 34.3, RDW 13.5, RDW Differential 48.6 H, Plt Count 120 L, MPV 10.2, Immature Gran % (Auto) 0.200, Neut % (Auto) 64.2, Lymph % (Auto) 26.9, [place] % (Auto) 8.5, Eos % (Auto) 0.0, Baso % (Auto) 0.2, Absolute Neuts (auto) 2.9, Absolute Lymphs (auto) 1.20, Total Counted Not Reportable 07/06/17 05:40: Sodium 133 L, Potassium 4.0, Chloride 101, Carbon Dioxide 24.0, Anion Gap 8, BUN 39 H, Creatinine 1.56 H, Estim Creat Clear Calc 42.29, Est GFR (MDRD) Af Amer 60, Est GFR (MDRD) Non-Af 50 L, BUN/Creatinine Ratio 25.0 H, Glucose 99, Calcium 7.1 L, Total Bilirubin 0.30, AST 301 H, ALT 194 H, Alkaline Phosphatase 97, Troponin I 0.18 H, Total Protein 5.2 L, Albumin 2.3 L, Globulin 2.9, Albumin/Globulin Ratio 0.8 L Clinical Impression(s) from Imaging Studies Chest X-Ray 07/04/17 10:25 IMPRESSION: Right upper lobe consolidation. Focal infiltrate in the superior segment of the right lower lobe. Electronically Signed: Rob Gallegos MD at 11:02 EDT Tel [phone], Service support , Chest X-Ray 07/06/17 04:05 IMPRESSION: Pacemaker leads are in proper position. There is a RIGHT-sided PICC line. The tip is in the superior vena cava. There is a residual RIGHT upper lobe infiltrate which has improved since the prior study. There are NO new infiltrates. There is no demonstrated pleural abnormality. Normal size heart. Electronically Signed: Sunil Steiner MD at 7:35 EDT , Service support , The patient can be transferred to the PCU Code Visit Inpatient E&M: 50193 Subs Hosp L3
--- NOTE | 2017-07-06 08:58 | PCM.PN.CARD ---
Subjectve: Patient seen and evaluated and appears to be doing better today. Events of yesterday afternoon and evening noted. Objective: Vital Signs Temp Pulse Resp BP Pulse Ox 97.7 F L 75 14 115/88 H 95 07/06/17 06:00 07/06/17 07:10 07/06/17 07:10 07/06/17 07:00 07/06/17 07:10 Oxygen Flow Rate (L/min) 2 Oxygen Delivery Method Room Air Weight: 120 lb 5.958 oz Body Mass Index (BMI) 17.2 Intake and Output for Last 24 Hours 07/04/17 07/05/17 07/06/17 23:59 23:59 23:59 Intake Total 843 / 843 1994 Output Total 550 / 550 Balance 843 / 843 1994 1452 / 1452 General: Awake, Alert, Oriented x 3 HEENT: PERRL, EOMI, Sclera Non Icteric Neck: Supple, Good ROM, No Lymph Node Enlargement Lungs: Clear to auscultation Cardiovascular: Regular Rhythm, Normal S1, Normal S2, No Murmurs, No Rubs, No Gallops Vascular: No Carotid Bruits, Normal Femoral Pulses, Normal Radial Pulses, Normal Dorsalis Pedal Pulse, Normal Posterior Tibial Pulses Abdomen: Bowel Sounds Present, Soft, Non Tender, No HSM, No Organomegaly Extremities: No Cyanosis, No Clubbing, No edema Neurological: No Focal Motor or Sensory Deficit 07/05/17 09:55: Troponin I 0.30 H 07/05/17 17:10: APTT 206.3 H* 07/05/17 17:10: Sodium 134 L, Potassium 5.0, Chloride 103, Carbon Dioxide 22.0, Anion Gap 9, BUN 43 H, Creatinine 1.99 H, Est GFR (MDRD) Af Amer 45 L, Est GFR (MDRD) Non-Af 38 L, BUN/Creatinine Ratio 21.6 H, Glucose 250 H, Calcium 6.4 L*, Magnesium 2.4, Total Bilirubin 0.50, Troponin I 0.21 H 07/05/17 17:10: WBC 5.7, RBC 3.58 L, Hgb 12.3 L, Hct 35.3 L, MCV 98.6 H, MCH 34.4 H, MCHC 34.8, RDW 13.3, RDW Differential 46.6 H, Plt Count 119 L, MPV 10.4, Immature Gran % (Auto) 1.200 H, Neut % (Auto) 71.2 H, Lymph % (Auto) 21.5, [place] % (Auto) 5.5, Eos % (Auto) 0.2, Baso % (Auto) 0.4, Absolute Neuts (auto) 4.0, Total Counted Not Reportable 07/05/17 17:10: PT 15.0 H, INR 1.2 07/05/17 17:10: Lactic Acid 2.4 H 07/05/17 17:10: Urine Color Yellow, Urine Clarity Sl. Cloudy, Urine pH 5.0, Ur Specific [place] 1.025, Urine Protein 100 H, Urine Glucose (UA) Normal, Urine Ketones Negative, Urine Occult Blood 10 H, Urine Nitrite Negative, Urine Bilirubin Negative, Urine Urobilinogen Normal, Ur Leukocyte Esterase Negative, Urine RBC 0 SEEN, Urine WBC 0-5 SEEN 07/05/17 21:00: Troponin I 0.17 H 07/05/17 21:00: Lactic Acid 1.1 07/06/17 01:15: Troponin I 0.17 H 07/06/17 05:40: WBC 4.5, RBC 3.53 L, Hgb 11.9 L, Hct 34.7 L, MCV 98.3 H, MCH 33.7 H, MCHC 34.3, RDW 13.5, RDW Differential 48.6 H, Plt Count 120 L, MPV 10.2, Immature Gran % (Auto) 0.200, Neut % (Auto) 64.2, Lymph % (Auto) 26.9, [place] % (Auto) 8.5, Eos % (Auto) 0.0, Baso % (Auto) 0.2, Absolute Neuts (auto) 2.9, Total Counted Not Reportable 07/06/17 05:40: Sodium 133 L, Potassium 4.0, Chloride 101, Carbon Dioxide 24.0, Anion Gap 8, BUN 39 H, Creatinine 1.56 H, Est GFR (MDRD) Af Amer 60, Est GFR (MDRD) Non-Af 50 L, BUN/Creatinine Ratio 25.0 H, Glucose 99, Calcium 7.1 L, Total Bilirubin 0.30, Troponin I 0.18 H Rhythm: EKG: ECHO: Stress Test: Cardiac Cath: PCI: CT Surgery: Holter monitor: EPS: PPM: CXR: Chest CT Scan: Assessment/Plan 1. Abnormal cardiac enzymes and abnormal EKG I strongly suspect the above likely secondary to his cardiomyopathy which is probably been worsened by his upper respiratory tract infection or pneumonia. The abnormal cardiac enzymes are likely secondary to demand ischemia. There does not appear to be a significant rise and fall and appears to be plateaued. His repeat echocardiogram yesterday demonstrated an ejection fraction of approximately 20% consistent with a dilated cardiomyopathy. My recommendation at this time would be to have him recover from his respiratory tract infection and then will determine whether his coronaries would need to be reevaluated. I do have a low index of suspicion though that this is due to obstructive coronary disease. 2. Nonischemic cardiomyopathy He does have a known history of this. My recommendation at this time would be to obtain his previous records and see what workup was done in the past. He will in the meantime continue on his beta-miley as well as his CHUNG inhibitor. Dosages will need to be reduced and spaced out and introduced slowly. 3. Status post ICD implantation His ICD was identified yesterday. Records were obtained. We will give him the choice as to whether he would follow here with us or he will continue his remote follow-up. Thank you for allowing me to participate in the care of your patient. Please don't hesitate to call if any issues arise
--- NOTE | 2017-07-06 09:01 | PN_ITS ---
Patient Problems: Active and Suspected Problems Ex-smoker (Acute) Right upper lobe and lower lobe CAP (Acute) Subjective: The patient was transferred to ICU yesterday after he has hypotension along with confusion, disorientation mild agitation suggestive of altered mental status. Hypotension due to polypharmacy he had 3 antihypertensive medications. Patient was on norepinephrine drip for short period of time. He also had one 3 mg IV Howard-Synephrine. He is off Levophed drip. Patient maintaining blood pressure on his own. No hypoxia. Vitals/I&O's: Vital Signs Temp Pulse Resp BP Pulse Ox 97.7 F L 75 14 115/88 H 95 07/06/17 06:00 07/06/17 07:10 07/06/17 07:10 07/06/17 07:00 07/06/17 07:10 Oxygen Flow Rate (L/min) 2 Oxygen Delivery Method Room Air Weight: 120 lb 5.958 oz Body Mass Index (BMI) 17.2 Intake and Output for Last 24 Hours 07/04/17 07/05/17 07/06/17 23:59 23:59 23:59 Intake Total 843 / 843 1994 Output Total 550 / 550 Balance 843 / 843 1994 1452 / 1452 General: Alert, Oriented x3, Cooperative HEENT: Atraumatic, PERRLA, EOMI, Normocephalic Neck: Supple, No JVD, Negative Carotid Bruits Lungs: No rhonchi, No wheeze, Diminished, Rales - Find rales on the posterior aspect of right lung Cardiovascular: Regular rate, Regular Rhythm, Normal S1, Normal S2, No murmurs, - - AICD Abdomen: Bowel Sounds Present, Soft, Non Tender, Non-Distended Extremities: No edema, Capillary Refill Less than 3 Seconds Skin: No rashes, No breakdown Musculoskeletal: No Tenderness to Palpation of Joints or Extremities Neurological: Cranial nerves II-XII grossly intact Psych/Mental Status: Normal Affect, Appropriate Microbiology Past 72 Hours 07/05/17 23:00 Stool C. difficile DNA Amplification - Final 07/04/17 14:17 Mucosa - Nose Respiratory Panel (PCR) - Final Influenza A (Subtype H1) 07/04/17 23:00 Urine, Clean Catch Streptococcus pneumoniae Antigen (M - Final 07/04/17 23:00 Urine, Clean Catch Legionella Antigen - Final Laboratory Results 07/05/17 09:55: Troponin I 0.30 H 07/05/17 14:10: MRSA (PCR) Negative 07/05/17 15:51: POC Glucose 119 H 07/05/17 17:05: Urine Opiates Screen Cancelled, Urine Methadone Screen Cancelled , Ur Barbiturates Screen Cancelled, Ur Phencyclidine Scrn Cancelled, Ur Amphetamines Screen Cancelled, U Methamphetamin-MDMA Cancelled, U Benzodiazepines Scrn Cancelled, Urine Cocaine Screen Cancelled, U Cannabinoids Screen Cancelled, Ur Drug Screen Comment Cancelled 07/05/17 17:10: APTT 206.3 H* 07/05/17 17:10: Sodium 134 L, Potassium 5.0, Chloride 103, Carbon Dioxide 22.0, Anion Gap 9, BUN 43 H, Creatinine 1.99 H, Estim Creat Clear Calc 31.21, Est GFR (MDRD) Af Amer 45 L, Est GFR (MDRD) Non-Af 38 L, BUN/Creatinine Ratio 21.6 H, Glucose 250 H, Calcium 6.4 L*, Magnesium 2.4, Total Bilirubin 0.50, AST 462 H, ALT 221 H, Alkaline Phosphatase 109, Troponin I 0.21 H, Total Protein 4.9 L, Albumin 2.2 L, Globulin 2.7, Albumin/Globulin Ratio 0.8 L 07/05/17 17:10: WBC 5.7, RBC 3.58 L, Hgb 12.3 L, Hct 35.3 L, MCV 98.6 H, MCH 34.4 H, MCHC 34.8, RDW 13.3, RDW Differential 46.6 H, Plt Count 119 L, MPV 10.4 , Immature Gran % (Auto) 1.200 H, Neut % (Auto) 71.2 H, Lymph % (Auto) 21.5, [place] % (Auto) 5.5, Eos % (Auto) 0.2, Baso % (Auto) 0.4, Absolute Neuts (auto) 4.0, Absolute Lymphs (auto) 1.22, Total Counted Not Reportable 07/05/17 17:10: Urine Opiates Screen POSITIVE H, Urine Methadone Screen NEGATIVE , Ur Barbiturates Screen NEGATIVE, Ur Phencyclidine Scrn NEGATIVE, Ur Amphetamines Screen NEGATIVE, U Methamphetamin-MDMA NEGATIVE, U Benzodiazepines Scrn NEGATIVE, Urine Cocaine Screen NEGATIVE, U Cannabinoids Screen POSITIVE H, Ur Drug Screen Comment 07/05/17 17:10: PT 15.0 H, INR 1.2 07/05/17 17:10: Lactic Acid 2.4 H 07/05/17 17:10: Urine Color Yellow, Urine Clarity Sl. Cloudy, Urine pH 5.0, Ur Specific [place] 1.025, Urine Protein 100 H, Urine Glucose (UA) Normal, Urine Ketones Negative, Urine Occult Blood 10 H, Urine Nitrite Negative, Urine Bilirubin Negative, Urine Urobilinogen Normal, Ur Leukocyte Esterase Negative, Urine RBC 0 SEEN, Urine WBC 0-5 SEEN, Ur Squamous Epith Cells 0 SEEN, Amorphous Sediment 1+, Urine Bacteria 0 SEEN, Hyaline Casts 0-5 SEEN, Urine Mucus 0 SEEN 07/05/17 21:00: Troponin I 0.17 H 07/05/17 21:00: Lactic Acid 1.1 07/06/17 01:15: Troponin I 0.17 H 07/06/17 05:40: WBC 4.5, RBC 3.53 L, Hgb 11.9 L, Hct 34.7 L, MCV 98.3 H, MCH 33.7 H, MCHC 34.3, RDW 13.5, RDW Differential 48.6 H, Plt Count 120 L, MPV 10.2 , Immature Gran % (Auto) 0.200, Neut % (Auto) 64.2, Lymph % (Auto) 26.9, [place] % (Auto) 8.5, Eos % (Auto) 0.0, Baso % (Auto) 0.2, Absolute Neuts (auto) 2.9, Absolute Lymphs (auto) 1.20, Total Counted Not Reportable 07/06/17 05:40: Sodium 133 L, Potassium 4.0, Chloride 101, Carbon Dioxide 24.0, Anion Gap 8, BUN 39 H, Creatinine 1.56 H, Estim Creat Clear Calc 42.29, Est GFR (MDRD) Af Amer 60, Est GFR (MDRD) Non-Af 50 L, BUN/Creatinine Ratio 25.0 H, Glucose 99, Calcium 7.1 L, Total Bilirubin 0.30, AST 301 H, ALT 194 H, Alkaline Phosphatase 97, Troponin I 0.18 H, Total Protein 5.2 L, Albumin 2.3 L, Globulin 2.9, Albumin/Globulin Ratio 0.8 L Current Medications Acetaminophen (Tylenol) 650 mg PO Q4H PRN PRN PRN Reason: fever/mild pain Al Hydroxide/Mg Hydroxide (Mylanta Ii) 30 ml PO Q6H PRN PRN PRN Reason: Gastric Burning Albuterol Sulfate (Ventolin Aerosols) 2.5 mg INHALATION Q2H PRN PRN PRN Reason: SHORTNESS OF BREATH Albuterol/Ipratropium (Duoneb) 3 ml INHALATION Q4HWA.RT [facility] Last Admin: 07/06/17 07:09 Dose: 3 ml Aspirin (Aspirin, Baby) 81 mg PO DAILY@0800 [facility] Last Admin: 07/06/17 08:20 Dose: 81 mg Atorvastatin Calcium (Lipitor) 80 mg PO QHS [facility] Last Admin: 07/05/17 22:09 Dose: 80 mg Benzonatate (Tessalon Perle) 200 mg PO TID [facility] Last Admin: 07/06/17 05:32 Dose: 200 mg Bisacodyl (Dulcolax) 10 mg RECTAL DAILY PRN PRN PRN Reason: Constipation Docusate Sodium (Colace) 200 mg PO BID PRN PRN PRN Reason: Constipation Famotidine (Pepcid) 20 mg PO DAILY [facility] Last Admin: 07/05/17 09:06 Dose: 20 mg Guaifenesin (Mucinex) 1,200 mg PO BID [facility] Last Admin: 07/05/17 22:09 Dose: 1,200 mg Heparin Sodium (Beef Lung) (Heparin 500 Unit/5 Ml (100/Ml)) 500 unit IV UD PRN PRN Reason: HEPARIN FLUSH Heparin Sodium (Porcine) (Heparin Na) 5,000 unit SC Q8 [facility] Piperacillin Sod/Tazobactam Sod (Zosyn) 3.375 gm in 50 mls @ 12.5 mls/hr IV Q8 [facility] Last Admin: 07/06/17 05:32 Dose: 12.5 mls/hr Sodium Chloride () 250 mls @ 15 mls/hr IV .[id number] PRN PRN Reason: SALINE FLUSH Nutritional Formula (Lactose Free) (Ensure Clear) 120 ml PO 4X/DAY [facility] Ondansetron HCl (Zofran) 4 mg IV Q8H PRN PRN PRN Reason: Nausea Oseltamivir Phosphate (Tamiflu) 30 mg PO BID [facility] Stop: 07/09/17 22:01 Last Admin: 07/05/17 22:12 Dose: 30 mg Polyethylene Glycol (Miralax) 17 gm PO DAILY [facility] Last Admin: 07/05/17 09:08 Dose: 17 gm Prochlorperazine Edisylate (Compazine) 10 mg IV Q6H PRN PRN PRN Reason: Nausea/Vomiting Sodium Chloride () 5 - 30 ml IV UD PRN PRN Reason: SALINE FLUSH Last Admin: 07/06/17 05:33 Dose: 10 ml Sodium Chloride () 10 - 20 ml IV UD PRN PRN Reason: PICC FLUSH Assessment/Plan Active and Suspected Problems Ex-smoker (Acute) Right upper lobe and lower lobe CAP (Acute) The patient is a 52 year old M with history of active smoker and polysubstance use, chronic heart failure with nonischemic cardiomyopathy status post AICD came to ER with progressive worsening of shortness of breath for 2-3 weeks. Patient also has fever with chills. Patient has cough, nonproductive in nature which is getting better. Patient easily gets short of breath at rest and even on mild exertion. In ED, his blood pressure was found elevated. Was mild tachypneic but no fever. Chest x-ray shows right upper lobe consolidation and focal infiltrate of superior segment of right lower lobe suggestive of multifocal pneumonia. Patient is started on IV ceftriaxone and Zithromax and continued. Patient was initially admitted on [facility] and then transferred to PCU for EKG changes. 1. Atypical chest pain with hypotension possible unstable angina/ACS: Patient is being transferred to ICU. Serial troponin enzymes. 2D echo was done. Repeat EKG shows sinus bradycardia but no significant ST-T changes as compared to the previous one. Previous EKG shows normal sinus rhythm at 71 bpm with left anterior fascicular block with T inversion in anterolateral leads. [employer] Graph Weight Operator was consulted in the morning. Patient is on IV heparin drip. Chest pain is resolved. 2. Distributive shock, complicated with polypharmacy and superimposed community- acquired pneumonia with history of baseline severe chronic systolic heart failure with EF 20%: Blood pressure is stable short period of Levophed drip. Currently, of antihypertensive medication, if needed slowly start on Coreg. 3. Altered mental status most probably due to hypotension, metabolic encephalopathy: Resolved 4. Multifocal right upper lobe and lower lobe community acquired pneumonia: Urinary antigens are negative. Patient has influenza A positive. On Tamiflu since admission. Started on IV ceftriaxone and Zithromax and then changed to Zosyn. On bronchodilator as needed, incentive spirometry and Mucinex. 5. Elevated transaminases suggestive of acute liver injury due to shock/shock liver: Monitor LFT. ALT in 200s, AST in 400s. Follow the trends of LFT. 6.Nonischemic cardiomyopathy with chronic heart failure status post most probably due to polysubstance use in the past: As per our record, there is old exercise stress test report in 2013 was reported as normal submaximal treadmill stress ECG, negative for ischemia. 2D echo is reported as EF 20% with severe global left ventricular systolic dysfunction with severely stage III diastolic dysfunction. Normal right ventricular size and systolic function. Left atrium mildly enlarged. Normal right atrium. Moderately severe eccentric mitral valve regurgitation. Moderate TR with RVSP 22 mmHg. IVC dilated with partial collapse BNP 422. Hold antihypertensive medication 7. Moderate protein calorie malnutrition: Patient has BMI 17.2 kg/m?. Mild to moderate muscle atrophy in extremities. On ensure. Perhaps due to chronic heart failure and history of drug use other chronic comorbidities include hypertension: Fasting lipid profile is within normal limits except HDL 38. DVT prophylaxis: On IV heparin bilateral SCDs. Microbiology Past 72 Hours 07/04/17 14:00 Blood Culture (Wb) - Anticubital Right Blood Culture - Preliminary No growth in 48 hours. 07/05/17 23:00 Stool C. difficile DNA Amplification - Final 07/04/17 14:17 Mucosa - Nose Respiratory Panel (PCR) - Final Influenza A (Subtype H1) 07/04/17 23:00 Urine, Clean Catch Streptococcus pneumoniae Antigen (M - Final 07/04/17 23:00 Urine, Clean Catch Legionella Antigen - Final Laboratory Results 07/05/17 14:10: MRSA (PCR) Negative 07/06/17 05:40: WBC 4.5, RBC 3.53 L, Hgb 11.9 L, Hct 34.7 L, MCV 98.3 H, MCH 33.7 H, MCHC 34.3, RDW 13.5, RDW Differential 48.6 H, Plt Count 120 L, MPV 10.2 , Immature Gran % (Auto) 0.200, Neut % (Auto) 64.2, Lymph % (Auto) 26.9, [place] % (Auto) 8.5, Eos % (Auto) 0.0, Baso % (Auto) 0.2, Absolute Neuts (auto) 2.9, Absolute Lymphs (auto) 1.20, Total Counted Not Reportable 07/06/17 05:40: Sodium 133 L, Potassium 4.0, Chloride 101, Carbon Dioxide 24.0, Anion Gap 8, BUN 39 H, Creatinine 1.56 H, Estim Creat Clear Calc 42.29, Est GFR (MDRD) Af Amer 60, Est GFR (MDRD) Non-Af 50 L, BUN/Creatinine Ratio 25.0 H, Glucose 99, Calcium 7.1 L, Total Bilirubin 0.30, AST 301 H, ALT 194 H, Alkaline Phosphatase 97, Troponin I 0.18 H, Total Protein 5.2 L, Albumin 2.3 L, Globulin 2.9, Albumin/Globulin Ratio 0.8 L Clinical Impression(s) from Imaging Studies Chest X-Ray 07/04/17 10:25 IMPRESSION: Right upper lobe consolidation. Focal infiltrate in the superior segment of the right lower lobe. Electronically Signed: Rob Gallegos MD at 11:02 EDT Tel [phone], Service support , Chest X-Ray 07/06/17 04:05 IMPRESSION: Pacemaker leads are in proper position. There is a RIGHT-sided PICC line. The tip is in the superior vena cava. There is a residual RIGHT upper lobe infiltrate which has improved since the prior study. There are NO new infiltrates. There is no demonstrated pleural abnormality. Normal size heart. Electronically Signed: Sunil Steiner MD at 7:35 EDT , Service support , The patient can be transferred to the PCU Code Visit Inpatient E&M: 40476 Subs Hosp L3
[2017-07-06] MEDS: guaiFENesin 1,200 MG Tablet 1200 MG PO ×2 (09:34→22:16)
[2017-07-06] MEDS: Famotidine 20 MG Tablet PO (09:34)
[2017-07-06] MEDS: Acetaminophen 325 MG Tablet 650 MG PO ×2 (09:41→19:58)
[2017-07-06] MEDS: Oseltamivir Phosphate 30 MG Capsule PO ×2 (13:19→22:15)
--- NOTE | 2017-07-06 15:47 | NURSING ---
report called to Rosa M [facility]OB[facility] PCU. to PCU 122 per WC, ICU staff in attendance.
--- NOTE | 2017-07-06 18:56 | NURSING ---
Reviewed and agreed on all charting with Nikkie Malave RN
[2017-07-06] MEDS: Atorvastatin Calcium 80 MG Tablet PO (22:13)
[2017-07-07] VITALS (17 sets, daily range): BP systolic 122–143; BP diastolic 78–98; PULSE 80–95; RESP 12–22; TEMP 36.3–36.9; O2SAT 82–99
[2017-07-07] MEDS: Acetaminophen 325 MG Tablet 650 MG PO (00:07)
[2017-07-07] MEDS: Piperacil/Tazobactam 3.375 GM/50 ML ML IV ×3 (05:44→21:11)
[2017-07-07] MEDS: Benzonatate 100 MG Capsule 200 MG PO ×3 (05:45→21:09)
[2017-07-07 07:40] LABS: Absolute Lymphocyte Count 1.69 X10^3/ul (0.83-4.51); Absolute Neutrophil Count 2.2 X10^3/uL (2.0-7.7); Basophil# 0.04 X10^3/uL; Basophil% 0.9 % (0-1); Hematocrit 37.3 % (40-54); Lymphocyte # 1.69 X10^3/ul (4.0); Lymphocyte % 37.6 % (19-41); Mean Corp Hgb Conc 34.9 g/gl (32-36); Mean Corpuscular Hgb 33.9 pg (27.0-32.0); Mean Corpuscular Volume 97.4 fL (80-94); Mean Platelet Vol. 10.8 fl (6.2-12.0); Monocyte% 13.3 % (0-10); Neutrophil # 2.16 X10^3/uL (2.7-7.7); Platelet Count 125 K/mm3 (150-450); RBC Distribution Width CV 13.2 % (11.6-14.6); RBC Distribution Width SD 45.9 fl (35.1-43.9); Red Blood Count 3.83 M/mm3 (4.6-6.2); White Blood Count 4.5 K/mm3 (4.4-11.0)
[2017-07-07 07:43] LABS: Differential Indicated SCAN CRITERIA MET; POSITIVE COUNT NO; POSITIVE DIFFERENTIAL NO; POSITIVE MORPHOLOGY YES
[2017-07-07 07:52] LABS: ALB/GLOB Ratio 0.7 RATIO (0.9-2.4); AST(SGOT) 165 U/L (15-37); Alanine Aminotransfer ALT/SGPT 163 U/L (16-61); Albumin, Serum 2.3 g/dL (3.2-5.0); Alkaline Phosphatase 86 U/L (45-117); Anion Gap 7 (5-15); BUN 24 mg/dL (7-18); BUN/Creat Ratio 17.9 RATIO (10-20); Calcium,Total 7.5 mg/dL (8.5-10.1); Chloride 104 mmol/L (98-107); Creatinine, Serum 1.34 mg/dL (0.70-1.30); EST Glomerular Filtration Rate 59 mL/min (>60); Est Glom Filt Rate - Afr Amer 72 mL/min (>60); Estimated Creatinine Clearance 48.69 ml/min; Globulin 3.1 g/dL (2.2-4.2); Glucose 98 mg/dL (74-106); Potassium 3.6 mmol/L (3.5-5.1); Protein, Total 5.4 g/dL (6.4-8.2); Sodium Level 135 mmol/L (136-145)
[2017-07-07] MEDS: Ipratropium/Albuterol Sulfate 3 ML AMPUL.NEB INHALATION ×4 (07:56→19:18)
[2017-07-07 08:39] LABS: Reactive Lymphocyte RARE
--- NOTE | 2017-07-07 08:53 | BH.SGPN.T2 ---
Notified primary RN on 82 sp02. RN instructed me to apply 2L of nasal cannula on pt. SN
--- NOTE | 2017-07-07 09:32 | PN_ITS ---
Patient Problems: Active and Suspected Problems Ex-smoker (Acute) Right upper lobe and lower lobe CAP (Acute) Subjective: Patient has blood pressure in 140/90s. No fever. Still gets short of breath on mild exertion. Mild tachypnea, respiratory 22. Cautiously started on antihypertensive medication; spaced out throughout the day Vitals/I&O's: Vital Signs Temp Pulse Resp BP Pulse Ox 98 F 84 22 H 142/95 H 98 07/07/17 08:00 07/07/17 08:00 07/07/17 08:00 07/07/17 08:00 07/07/17 09:29 Oxygen Flow Rate (L/min) 2 Oxygen Delivery Method Room Air Weight: 119 lb 0.794 oz Body Mass Index (BMI) 17.2 Intake and Output for Last 24 Hours 07/05/17 07/06/17 07/07/17 23:59 23:59 23:59 Intake Total 1994 2850.0 / 2850.0 318.7 / 318.7 Output Total 1250 / 1250 550 / 550 Balance 1994 1600.0 / 1600.0 -231.3 / -231.3 General: Alert, Oriented x3, Cooperative HEENT: Atraumatic, PERRLA, EOMI, Normocephalic Neck: Supple, No JVD, Negative Carotid Bruits Lungs: Diminished Cardiovascular: Regular rate, Regular Rhythm, Normal S1, Normal S2, No murmurs Abdomen: Bowel Sounds Present, Soft, Non Tender, Non-Distended Extremities: No edema, Capillary Refill Less than 3 Seconds Skin: No rashes, No breakdown Musculoskeletal: No Tenderness to Palpation of Joints or Extremities Neurological: Cranial nerves II-XII grossly intact Psych/Mental Status: Normal Affect, Appropriate Microbiology Past 72 Hours 07/04/17 14:00 Blood Culture (Wb) - Anticubital Right Blood Culture - Preliminary No growth in 48 hours. 07/05/17 23:00 Stool C. difficile DNA Amplification - Final 07/04/17 14:17 Mucosa - Nose Respiratory Panel (PCR) - Final Influenza A (Subtype H1) 07/04/17 23:00 Urine, Clean Catch Streptococcus pneumoniae Antigen (M - Final 07/04/17 23:00 Urine, Clean Catch Legionella Antigen - Final Laboratory Results 07/07/17 06:34: WBC 4.5, RBC 3.83 L, Hgb 13.0, Hct 37.3 L, MCV 97.4 H, MCH 33.9 H, MCHC 34.9, RDW 13.2, RDW Differential 45.9 H, Plt Count 125 L, MPV 10.8, Immature Gran % (Auto) 0.200, Neut % (Auto) 48.0, Lymph % (Auto) 37.6, [place] % ( Auto) 13.3 H, Eos % (Auto) 0.0, Baso % (Auto) 0.9, Absolute Neuts (auto) 2.2, Absolute Lymphs (auto) 1.69, Total Counted Not Reportable, Reactive Lymphocytes RARE 07/07/17 06:34: Sodium 135 L, Potassium 3.6, Chloride 104, Carbon Dioxide 24.0, Anion Gap 7, BUN 24 H, Creatinine 1.34 H, Estim Creat Clear Calc 48.69, Est GFR (MDRD) Af Amer 72, Est GFR (MDRD) Non-Af 59 L, BUN/Creatinine Ratio 17.9, Glucose 98, Calcium 7.5 L, Total Bilirubin 0.60, AST 165 H, ALT 163 H, Alkaline Phosphatase 86, Total Protein 5.4 L, Albumin 2.3 L, Globulin 3.1, Albumin/ Globulin Ratio 0.7 L Current Medications Acetaminophen (Tylenol) 650 mg PO Q4H PRN PRN PRN Reason: fever/mild pain Last Admin: 07/07/17 00:07 Dose: 650 mg Al Hydroxide/Mg Hydroxide (Mylanta Ii) 30 ml PO Q6H PRN PRN PRN Reason: Gastric Burning Albuterol Sulfate (Ventolin Aerosols) 2.5 mg INHALATION Q2H PRN PRN PRN Reason: SHORTNESS OF BREATH Albuterol/Ipratropium (Duoneb) 3 ml INHALATION Q4HWA.RT [facility] Last Admin: 07/07/17 07:56 Dose: 3 ml Aspirin (Aspirin, Baby) 81 mg PO DAILY@0800 [facility] Last Admin: 07/06/17 08:20 Dose: 81 mg Atorvastatin Calcium (Lipitor) 80 mg PO QHS [facility] Last Admin: 07/06/17 22:13 Dose: 80 mg Benzonatate (Tessalon Perle) 200 mg PO TID [facility] Last Admin: 07/07/17 05:45 Dose: 200 mg Bisacodyl (Dulcolax) 10 mg RECTAL DAILY PRN PRN PRN Reason: Constipation Docusate Sodium (Colace) 200 mg PO BID PRN PRN PRN Reason: Constipation Famotidine (Pepcid) 20 mg PO DAILY [facility] Last Admin: 07/06/17 09:34 Dose: 20 mg Guaifenesin (Mucinex) 1,200 mg PO BID [facility] Last Admin: 07/06/17 22:16 Dose: 1,200 mg Heparin Sodium (Beef Lung) (Heparin 500 Unit/5 Ml (100/Ml)) 500 unit IV UD PRN PRN Reason: HEPARIN FLUSH Heparin Sodium (Porcine) (Heparin Na) 5,000 unit SC Q8 [facility] Last Admin: 07/07/17 05:45 Dose: Not Given Piperacillin Sod/Tazobactam Sod (Zosyn) 3.375 gm in 50 mls @ 12.5 mls/hr IV Q8 [facility] Last Admin: 07/07/17 05:44 Dose: 12.5 mls/hr Sodium Chloride () 250 mls @ 15 mls/hr IV .[id number] PRN PRN Reason: SALINE FLUSH Nutritional Formula (Lactose Free) (Ensure Clear) 120 ml PO 4X/DAY [facility] Last Admin: 07/06/17 22:12 Dose: Not Given Ondansetron HCl (Zofran) 4 mg IV Q8H PRN PRN PRN Reason: Nausea Oseltamivir Phosphate (Tamiflu) 30 mg PO BID [facility] Stop: 07/09/17 22:01 Last Admin: 07/06/17 22:15 Dose: 30 mg Polyethylene Glycol (Miralax) 17 gm PO DAILY [facility] Last Admin: 07/06/17 09:34 Dose: Not Given Prochlorperazine Edisylate (Compazine) 10 mg IV Q6H PRN PRN PRN Reason: Nausea/Vomiting Sodium Chloride () 5 - 30 ml IV UD PRN PRN Reason: SALINE FLUSH Last Admin: 07/06/17 05:33 Dose: 10 ml Sodium Chloride () 10 - 20 ml IV UD PRN PRN Reason: PICC FLUSH Medical Necessity - Tobacco Use Smoking Status: Former smoker Assessment/Plan Active and Suspected Problems Ex-smoker (Acute) Right upper lobe and lower lobe CAP (Acute) The patient is a 52 year old M with history of active smoker and polysubstance use, chronic heart failure with nonischemic cardiomyopathy status post AICD came to ER with progressive worsening of shortness of breath for 2-3 weeks. Patient also has fever with chills. Patient has cough, nonproductive in nature which is getting better. Patient easily gets short of breath at rest and even on mild exertion. In ED, his blood pressure was found elevated. Was mild tachypneic but no fever. Chest x-ray shows right upper lobe consolidation and focal infiltrate of superior segment of right lower lobe suggestive of multifocal pneumonia. Patient is started on IV ceftriaxone and Zithromax and continued. [facility] for E[facility] changes. 1. Atypical chest pain; most probably triggered by pneumonia : Patient is being transferred to ICU. Serial troponin enzymes are flat and indeterminant 0.17 and previously 0.4. 2D echo was done. Repeat EKG shows sinus bradycardia but no significant ST-T changes as compared to the previous one. Previous EKG shows normal sinus rhythm at 71 bpm with left anterior fascicular block with T inversion in anterolateral leads. Blood Splatter Analyst was consulted and appreciated.. Chest pain is resolved. 2. Distributive shock, complicated with polypharmacy and superimposed community- acquired pneumonia with history of baseline severe chronic systolic heart failure with EF 20%: Blood pressure is stable short period of Levophed drip. Gradually started on Coreg 12.5 mg twice daily and lisinopril 10 mg once daily a.m. 3. Altered mental status most probably due to hypotension, metabolic encephalopathy: Resolved 4. Multifocal right upper lobe and lower lobe community acquired pneumonia: Urinary antigens are negative. Patient has influenza A positive. On Tamiflu since admission. Started on IV ceftriaxone and Zithromax and then changed to Zosyn. On bronchodilator as needed, incentive spirometry and Mucinex. 5. Elevated transaminases suggestive of acute liver injury due to shock/shock liver: Monitor LFT. ALT in 200s, AST in 400s. Transaminases are trending down. 6.Nonischemic cardiomyopathy with chronic heart failure status post most probably due to polysubstance use in the past: As per our record, there is old exercise stress test report in 2013 was reported as normal submaximal treadmill stress ECG, negative for ischemia. 2D echo is reported as EF 20% with severe global left ventricular systolic dysfunction with severely stage III diastolic dysfunction. Normal right ventricular size and systolic function. Left atrium mildly enlarged. Normal right atrium. Moderately severe eccentric mitral valve regurgitation. Moderate TR with RVSP 22 mmHg. IVC dilated with partial collapse BNP 422. Hold antihypertensive medication 7. Moderate protein calorie malnutrition: Patient has BMI 17.2 kg/m?. Mild to moderate muscle atrophy in extremities. On ensure. Perhaps due to chronic heart failure and history of drug use other chronic comorbidities include hypertension: Fasting lipid profile is within normal limits except HDL 38. DVT prophylaxis: Heparin 5000 units subcutaneous 3 times daily and bilateral SCDs. Clinical Impression(s) from Imaging Studies Chest X-Ray 07/04/17 10:25 IMPRESSION: Right upper lobe consolidation. Focal infiltrate in the superior segment of the right lower lobe. Electronically Signed: Rob Gallegos MD at 11:02 EDT Tel [phone], Service support , Chest X-Ray 07/06/17 04:05 IMPRESSION: Pacemaker leads are in proper position. There is a RIGHT-sided PICC line. The tip is in the superior vena cava. There is a residual RIGHT upper lobe infiltrate which has improved since the prior study. There are NO new infiltrates. There is no demonstrated pleural abnormality. Normal size heart. Electronically Signed: Sunil Steiner MD at 7:35 EDT , Service support , The patient can be transferred to the PCU Code Visit Inpatient E&M: 01930 Subs Hosp L3
[2017-07-07] MEDS: guaiFENesin 1,200 MG Tablet 1200 MG PO ×2 (09:40→21:09)
[2017-07-07] MEDS: Famotidine 20 MG Tablet PO (09:40)
[2017-07-07] MEDS: Aspirin 81 MG TAB.CHEW PO (09:40)
[2017-07-07] MEDS: Oseltamivir Phosphate 30 MG Capsule PO ×2 (09:41→21:10)
--- NOTE | 2017-07-07 10:04 | PN.CARD_ITS ---
Subjectve: Patient doing well this morning, no 24 hour events. Laying in bed without any difficulty. Telemetry shows normal sinus rhythm. Objective: Vital Signs Temp Pulse Resp BP Pulse Ox 97.5 F L 84 18 143/97 H 97 07/07/17 09:33 07/07/17 09:33 07/07/17 09:33 07/07/17 09:33 07/07/17 09:33 Oxygen Flow Rate (L/min) 2 Oxygen Delivery Method Room Air Weight: 119 lb 0.794 oz Body Mass Index (BMI) 17.2 Intake and Output for Last 24 Hours 07/05/17 07/06/17 07/07/17 23:59 23:59 23:59 Intake Total 1994 2850.0 / 2850.0 318.7 / 318.7 Output Total 1250 / 1250 550 / 550 Balance 1994 1600.0 / 1600.0 -231.3 / -231.3 General: Awake, Alert, Oriented x 3 HEENT: PERRL, EOMI, Sclera Non Icteric Neck: Supple, Good ROM, No Lymph Node Enlargement Lungs: Rales - Right Base Cardiovascular: Regular Rhythm, Normal S1, Normal S2, No Rubs, No Gallops Murmur Murmur: Grade 3/6, Holosystolic Vascular: No Carotid Bruits, Normal Femoral Pulses, Normal Radial Pulses, Normal Dorsalis Pedal Pulse, Normal Posterior Tibial Pulses Abdomen: Bowel Sounds Present, Soft, Non Tender, No HSM, No Organomegaly Extremities: No Cyanosis, No Clubbing, No edema Neurological: No Focal Motor or Sensory Deficit 07/07/17 06:34: WBC 4.5, RBC 3.83 L, Hgb 13.0, Hct 37.3 L, MCV 97.4 H, MCH 33.9 H, MCHC 34.9, RDW 13.2, RDW Differential 45.9 H, Plt Count 125 L, MPV 10.8, Immature Gran % (Auto) 0.200, Neut % (Auto) 48.0, Lymph % (Auto) 37.6, [place] % ( Auto) 13.3 H, Eos % (Auto) 0.0, Baso % (Auto) 0.9, Absolute Neuts (auto) 2.2, Total Counted Not Reportable 07/07/17 06:34: Sodium 135 L, Potassium 3.6, Chloride 104, Carbon Dioxide 24.0, Anion Gap 7, BUN 24 H, Creatinine 1.34 H, Est GFR (MDRD) Af Amer 72, Est GFR ( MDRD) Non-Af 59 L, BUN/Creatinine Ratio 17.9, Glucose 98, Calcium 7.5 L, Total Bilirubin 0.60 Rhythm: EKG: ECHO: LVEF at 20%, 3+ MR, 2+ TR, RVSP of 22 mmHg. Stress Test: Cardiac Cath: Pending PCI: CT Surgery: Holter monitor: EPS: PPM: CXR: Chest CT Scan: Medical Necessity - Tobacco Use Smoking Status: Former smoker Assessment/Plan 1. Abnormal cardiac enzymes and abnormal EKG I strongly suspect the above likely secondary to his cardiomyopathy which is probably been worsened by his upper respiratory tract infection or pneumonia. The abnormal cardiac enzymes are likely secondary to demand ischemia. There does not appear to be a significant rise and fall and appears to be plateaued. His repeat echocardiogram yesterday demonstrated an ejection fraction of approximately 20% consistent with a dilated cardiomyopathy. Now that he is recovered from his events, and has been off pressors for greater than 48 hours, recommend initiating Coreg at 12.5 mg p.o. twice daily, half his normal dose, and restart his restart his lisinopril at 10 mg p.o. daily, again half his normal dose. If his blood pressures tolerates this today, would increase his Coreg to 12.5 mg p.o. twice daily, and increase his lisinopril to 20 mg a day. Would hold off on amlodipine for now. 2. Nonischemic cardiomyopathy He does have a known history of this. My recommendation at this time would be to obtain his previous records and see what workup was done in the past. He will in the meantime continue on his beta-miley as well as his CHUNG inhibitor. We will consider repeat catheterization to ensure there are no additional lesions to his coronary anatomy given his smoking history. 3. Status post ICD implantation His ICD was i interrogated on this admission. Records were obtained. We will give him the choice as to whether he would follow here with us or he will continue his remote follow-up. Thank you for allowing me to participate in the care of your patient. Please don't hesitate to call if any issues arise Code Visit Inpatient E&M: [id number] Subs Hosp L2
[2017-07-07] MEDS: Carvedilol 12.5 MG Tablet PO ×2 (11:59→21:10)
[2017-07-07] MEDS: Atorvastatin Calcium 80 MG Tablet PO (21:09)
[2017-07-07] MEDS: Zolpidem Tartrate 5 MG Tablet PO (21:11)
[2017-07-08] VITALS (15 sets, daily range): BP systolic 101–149; BP diastolic 72–105; PULSE 76–90; RESP 16–20; TEMP 36.3–36.9; O2SAT 93–100
[2017-07-08] MEDS: 0.9% NaCl Peripheral Flush Adult/Peds IV (05:06)
[2017-07-08] MEDS: Benzonatate 100 MG Capsule 200 MG PO ×3 (05:29→21:44)
[2017-07-08] MEDS: Piperacil/Tazobactam 3.375 GM/50 ML ML IV ×3 (05:29→21:46)
[2017-07-08 05:34] LABS: Absolute Lymphocyte Count 2.19 X10^3/ul (0.83-4.51); Absolute Neutrophil Count 2.3 X10^3/uL (2.0-7.7); Basophil# 0.09 X10^3/uL; Basophil% 1.7 % (0-1); Eosinophil# 0.01 X10^3/uL; Eosinophils% 0.2 % (0-5); Hematocrit 35.8 % (40-54); Hemoglobin 12.7 g/dl (13.0-16.5); Lymphocyte # 2.19 X10^3/ul (4.0); Lymphocyte % 40.5 % (19-41); Mean Corp Hgb Conc 35.5 g/gl (32-36); Mean Corpuscular Hgb 34.4 pg (27.0-32.0); Mean Platelet Vol. 10.7 fl (6.2-12.0); Monocyte% 14.8 % (0-10); Neutrophil # 2.31 X10^3/uL (2.7-7.7); Neutrophil % 42.6 % (47-70); Platelet Count 113 K/mm3 (150-450); RBC Distribution Width SD 44.8 fl (35.1-43.9); Red Blood Count 3.69 M/mm3 (4.6-6.2); White Blood Count 5.4 K/mm3 (4.4-11.0)
[2017-07-08 05:38] LABS: Differential Indicated SCAN CRITERIA MET; POSITIVE COUNT NO; POSITIVE DIFFERENTIAL NO; POSITIVE MORPHOLOGY YES
[2017-07-08 05:49] LABS: ALB/GLOB Ratio 0.7 RATIO (0.9-2.4); AST(SGOT) 98 U/L (15-37); Alanine Aminotransfer ALT/SGPT 123 U/L (16-61); Albumin, Serum 2.3 g/dL (3.2-5.0); Alkaline Phosphatase 81 U/L (45-117); Anion Gap 8 (5-15); BUN 15 mg/dL (7-18); BUN/Creat Ratio 12.3 RATIO (10-20); Calcium,Total 7.4 mg/dL (8.5-10.1); Chloride 103 mmol/L (98-107); Creatinine, Serum 1.22 mg/dL (0.70-1.30); EST Glomerular Filtration Rate 66 mL/min (>60); Est Glom Filt Rate - Afr Amer 80 mL/min (>60); Estimated Creatinine Clearance 53.48 ml/min; Globulin 3.2 g/dL (2.2-4.2); Glucose 138 mg/dL (74-106); Potassium 3.4 mmol/L (3.5-5.1); Protein, Total 5.5 g/dL (6.4-8.2); Sodium Level 137 mmol/L (136-145)
[2017-07-08] MEDS: Ipratropium/Albuterol Sulfate 3 ML AMPUL.NEB INHALATION ×4 (07:41→18:52)
[2017-07-08] MEDS: Polyethylene Glycol 3350 17 GM PACKET PO (09:32)
[2017-07-08] MEDS: Lisinopril 10 MG Tablet PO ×2 (09:33→10:04)
[2017-07-08] MEDS: guaiFENesin 1,200 MG Tablet 1200 MG PO ×2 (09:35→21:45)
[2017-07-08] MEDS: Famotidine 20 MG Tablet PO (09:35)
[2017-07-08] MEDS: Oseltamivir Phosphate 30 MG Capsule PO ×2 (09:35→21:45)
[2017-07-08] MEDS: Aspirin 81 MG TAB.CHEW PO (09:35)
--- NOTE | 2017-07-08 09:38 | PN.CARD_ITS ---
Subjectve: Patient improving from a clinical standpoint, still has some crackles in his left base. Blood pressure is much improved. Patient complains of dry hacking cough. Patient has difficulty laying recumbent over the last evening. Telemetry shows normal sinus rhythm. Objective: Vital Signs Temp Pulse Resp BP Pulse Ox 98.4 F 85 20 H 138/90 H 97 07/08/17 04:48 07/08/17 07:54 07/08/17 07:41 07/08/17 04:48 07/08/17 07:41 Oxygen Flow Rate (L/min) 2 Oxygen Delivery Method Room Air Weight: 118 lb 6.212 oz Body Mass Index (BMI) 17.2 Intake and Output for Last 24 Hours 07/06/17 07/07/17 07/08/17 23:59 23:59 23:59 Intake Total 2850.0 / 2850.0 873.7 / 873.7 524 / 524 Output Total 1250 / 1250 1275 / 1275 425 / 425 Balance 1600.0 / 1600.0 -401.3 / -401.3 99 / 99 General: Awake, Alert, Oriented x 3 HEENT: PERRL, EOMI, Sclera Non Icteric Neck: Supple, Good ROM, No Lymph Node Enlargement Lungs: Diminished Left Base, Rales - Left Base Cardiovascular: Regular Rhythm, Normal S1, Normal S2, No Murmurs, No Rubs, No Gallops Murmur Murmur: Grade 3/6, Holosystolic Vascular: No Carotid Bruits, Normal Femoral Pulses, Normal Radial Pulses, Normal Dorsalis Pedal Pulse, Normal Posterior Tibial Pulses Abdomen: Bowel Sounds Present, Soft, Non Tender, No HSM, No Organomegaly Extremities: No Cyanosis, No Clubbing, No edema Neurological: No Focal Motor or Sensory Deficit 07/08/17 05:05: WBC 5.4, RBC 3.69 L, Hgb 12.7 L, Hct 35.8 L, MCV 97.0 H, MCH 34.4 H, MCHC 35.5, RDW 13.0, RDW Differential 44.8 H, Plt Count 113 L, MPV 10.7 , Immature Gran % (Auto) 0.200, Neut % (Auto) 42.6 L, Lymph % (Auto) 40.5, [place] % (Auto) 14.8 H, Eos % (Auto) 0.2, Baso % (Auto) 1.7 H, Absolute Neuts (auto) 2.3, Total Counted Not Reportable 07/08/17 05:05: Sodium 137, Potassium 3.4 L, Chloride 103, Carbon Dioxide 26.0, Anion Gap 8, BUN 15, Creatinine 1.22, Est GFR (MDRD) Af Amer 80, Est GFR (MDRD) Non-Af 66, BUN/Creatinine Ratio 12.3, Glucose 138 H, Calcium 7.4 L, Total Bilirubin 0.40 Rhythm: EKG: ECHO: Stress Test: Cardiac Cath: PCI: CT Surgery: Holter monitor: EPS: PPM: CXR: Chest CT Scan: Medical Necessity - Tobacco Use Smoking Status: Former smoker Assessment/Plan 1. Abnormal cardiac enzymes and abnormal EKG I strongly suspect the above likely secondary to his cardiomyopathy which is probably been worsened by his upper respiratory tract infection or pneumonia. The abnormal cardiac enzymes are likely secondary to demand ischemia. There does not appear to be a significant rise and fall and appears to be plateaued. His repeat echocardiogram yesterday demonstrated an ejection fraction of approximately 20% consistent with a dilated cardiomyopathy. Now that he is recovered from his events, and has been off pressors for greater than 72 hours, recommend increasing Coreg to 25 mg p.o. twice daily, and restart his restart his lisinopril and increase to 20 mg mg p.o. daily, as well as restarting his amlodipine at 10 mg daily. In addition I recommend Lasix 20 mill grams IV ?1 given his positive fluid balance, severe LV dysfunction, and orthopnea/PND and left-sided crackles. Would not recommend any pain medicines at this time. 2. Nonischemic cardiomyopathy He does have a known history of this. My recommendation at this time would be to obtain his previous records and see what workup was done in the past. He will in the meantime continue on his beta-miley as well as his CHUNG inhibitor, and restart amlodipine. We will consider repeat catheterization to ensure there are no additional lesions to his coronary anatomy given his smoking history. Would not recommend catheterization on Sunday tomorrow, given his pulmonary status, droplet precautions, and orthopnea. 3. Status post ICD implantation His ICD was interrogated on this admission. Records were obtained. We will give him the choice as to whether he would follow here with us or he will continue his remote follow-up. Thank you for allowing me to participate in the care of your patient. Code Visit Inpatient E&M: [id number] Subs Hosp L2
[2017-07-08] MEDS: amLODIPine 10 MG Tablet PO (10:04)
[2017-07-08] MEDS: Furosemide 20 MG/2 ML VIAL IV (10:04)
[2017-07-08] MEDS: Carvedilol 25 MG Tablet PO ×2 (10:04→21:46)
--- NOTE | 2017-07-08 11:11 | PCM.PN.HOSP ---
Patient Problems: Active and Suspected Problems Ex-smoker (Acute) Right upper lobe and lower lobe CAP (Acute) Subjective: his blood pressure, 149/105. Seen by fly fishing guide Dr. Traylor. Increased his Coreg 12.5 mg twice daily, lisinopril 20 mg daily and amlodipine 10 mg daily. Vitals/I&O's: Vital Signs Temp Pulse Resp BP Pulse Ox 97.4 F L 90 16 149/105 H 93 07/08/17 10:36 07/08/17 10:36 07/08/17 10:36 07/08/17 10:36 07/08/17 10:36 Oxygen Flow Rate (L/min) 2 Oxygen Delivery Method Room Air Weight: 118 lb 6.212 oz Body Mass Index (BMI) 17.2 Intake and Output for Last 24 Hours 07/06/17 07/07/17 07/08/17 23:59 23:59 23:59 Intake Total 2850.0 / 2850.0 873.7 / 873.7 524 / 524 Output Total 1250 / 1250 1275 / 1275 425 / 425 Balance 1600.0 / 1600.0 -401.3 / -401.3 99 / 99 General: Alert, Oriented x3, Cooperative HEENT: Atraumatic, PERRLA, EOMI, Normocephalic Oral: Dry Mucosa Neck: Supple, No JVD, Negative Carotid Bruits Lungs: Diminished, Rales - Rales present on the bilateral lung bases, left more than right, Rhonchi Cardiovascular: Regular rate, Normal S1, Normal S2, No murmurs Abdomen: Bowel Sounds Present, Soft, Non Tender, Non-Distended Extremities: No clubbing, No edema Skin: No rashes Musculoskeletal: Muscle Wasting Microbiology Past 72 Hours 07/06/17 19:45 Sputum, Expectorated/Coughed Gram Stain - Final 07/06/17 19:45 Sputum, Expectorated/Coughed Respiratory Culture - Preliminary Presumptive C albicans 07/04/17 14:00 Blood Culture (Wb) - Anticubital Right Blood Culture - Preliminary No growth in 48 hours. 07/05/17 23:00 Stool C. difficile DNA Amplification - Final Laboratory Results 07/08/17 05:05: WBC 5.4, RBC 3.69 L, Hgb 12.7 L, Hct 35.8 L, MCV 97.0 H, MCH 34.4 H, MCHC 35.5, RDW 13.0, RDW Differential 44.8 H, Plt Count 113 L, MPV 10.7, Immature Gran % (Auto) 0.200, Neut % (Auto) 42.6 L, Lymph % (Auto) 40.5, [place] % (Auto) 14.8 H, Eos % (Auto) 0.2, Baso % (Auto) 1.7 H, Absolute Neuts (auto) 2.3, Absolute Lymphs (auto) 2.19, Total Counted Not Reportable 07/08/17 05:05: Sodium 137, Potassium 3.4 L, Chloride 103, Carbon Dioxide 26.0, Anion Gap 8, BUN 15, Creatinine 1.22, Estim Creat Clear Calc 53.48, Est GFR (MDRD) Af Amer 80, Est GFR (MDRD) Non-Af 66, BUN/Creatinine Ratio 12.3, Glucose 138 H, Calcium 7.4 L, Total Bilirubin 0.40, AST 98 H, ALT 123 H, Alkaline Phosphatase 81, Total Protein 5.5 L, Albumin 2.3 L, Globulin 3.2, Albumin/Globulin Ratio 0.7 L Current Medications Acetaminophen (Tylenol) 650 mg PO Q4H PRN PRN PRN Reason: fever/mild pain Last Admin: 07/07/17 00:07 Dose: 650 mg Al Hydroxide/Mg Hydroxide (Mylanta Ii) 30 ml PO Q6H PRN PRN PRN Reason: Gastric Burning Albuterol Sulfate (Ventolin Aerosols) 2.5 mg INHALATION Q2H PRN PRN PRN Reason: SHORTNESS OF BREATH Albuterol/Ipratropium (Duoneb) 3 ml INHALATION Q4HWA.RT [facility] Last Admin: 07/08/17 07:41 Dose: 3 ml Amlodipine Besylate (Norvasc) 10 mg PO DAILY [facility] Last Admin: 07/08/17 10:04 Dose: 10 mg Aspirin (Aspirin, Baby) 81 mg PO DAILY@0800 [facility] Last Admin: 07/08/17 09:35 Dose: 81 mg Atorvastatin Calcium (Lipitor) 80 mg PO QHS [facility] Last Admin: 07/07/17 21:09 Dose: 80 mg Benzonatate (Tessalon Perle) 200 mg PO TID [facility] Last Admin: 03/18/18 05:29 Dose: 200 mg Bisacodyl (Dulcolax) 10 mg RECTAL DAILY PRN PRN PRN Reason: Constipation Carvedilol (Coreg) 25 mg PO BID [facility] Last Admin: 07/08/17 10:04 Dose: 25 mg Docusate Sodium (Colace) 200 mg PO BID PRN PRN PRN Reason: Constipation Famotidine (Pepcid) 20 mg PO DAILY [facility] Last Admin: 07/08/17 09:35 Dose: 20 mg Guaifenesin (Mucinex) 1,200 mg PO BID [facility] Last Admin: 07/08/17 09:35 Dose: 1,200 mg Heparin Sodium (Beef Lung) (Heparin 500 Unit/5 Ml (100/Ml)) 500 unit IV UD PRN PRN Reason: HEPARIN FLUSH Heparin Sodium (Porcine) (Heparin Na) 5,000 unit SC Q8 [facility] Last Admin: 07/08/17 05:29 Dose: Not Given Piperacillin Sod/Tazobactam Sod (Zosyn) 3.375 gm in 50 mls @ 12.5 mls/hr IV Q8 [facility] Last Admin: 07/08/17 05:29 Dose: 12.5 mls/hr Sodium Chloride () 250 mls @ 15 mls/hr IV .[id number] PRN PRN Reason: SALINE FLUSH Lisinopril (Zestril) 20 mg PO DAILY [facility] Nutritional Formula (Lactose Free) (Ensure Clear) 120 ml PO 4X/DAY [facility] Last Admin: 07/08/17 09:30 Dose: 120 ml Ondansetron HCl (Zofran) 4 mg IV Q8H PRN PRN PRN Reason: Nausea Oseltamivir Phosphate (Tamiflu) 30 mg PO BID [facility] Stop: 07/09/17 22:01 Last Admin: 07/08/17 09:35 Dose: 30 mg Polyethylene Glycol (Miralax) 17 gm PO DAILY [facility] Last Admin: 07/08/17 09:32 Dose: 17 gm Prochlorperazine Edisylate (Compazine) 10 mg IV Q6H PRN PRN PRN Reason: Nausea/Vomiting Sodium Chloride () 5 - 30 ml IV UD PRN PRN Reason: SALINE FLUSH Last Admin: 07/08/17 05:06 Dose: 20 ml Sodium Chloride () 10 - 20 ml IV UD PRN PRN Reason: PICC FLUSH Zolpidem Tartrate (Ambien (Generic)) 5 mg PO QHS PRN PRN PRN Reason: insomnia Last Admin: 07/07/17 21:11 Dose: 5 mg Medical Necessity - Tobacco Use Smoking Status: Former smoker Assessment/Plan Active and Suspected Problems Ex-smoker (Acute) Right upper lobe and lower lobe CAP (Acute) The patient is a 52 year old M with history of active smoker and polysubstance use, chronic heart failure with nonischemic cardiomyopathy status post AICD came to ER with progressive worsening of shortness of breath for 2-3 weeks. Patient also has fever with chills. Patient has cough, nonproductive in nature which is getting better. Patient easily gets short of breath at rest and even on mild exertion. In ED, his blood pressure was found elevated. Was mild tachypneic but no fever. Chest x-ray shows right upper lobe consolidation and focal infiltrate of superior segment of right lower lobe suggestive of multifocal pneumonia. Patient is started on IV ceftriaxone and Zithromax and continued. Patient was initially admitted on [facility] and then transferred to PCU for EKG changes. 1. Atypical chest pain; most probably triggered by pneumonia : Patient is being transferred to ICU. Serial troponin enzymes are flat and indeterminant 0.17 and previously 0.4. 2D echo was done. Repeat EKG shows sinus bradycardia but no significant ST-T changes as compared to the previous one. Previous EKG shows normal sinus rhythm at 71 bpm with left anterior fascicular block with T inversion in anterolateral leads. [employer] was consulted and appreciated.. Chest pain is resolved. 2. Distributive shock, complicated with polypharmacy and superimposed community-acquired pneumonia with history of baseline severe chronic systolic heart failure with EF 20%: Blood pressure is stable AND WAS on short period of Levophed drip. Seen by fly fishing guide Dr. Traylor. Patient tolerated Coreg 12.5 mg twice daily lisinopril 10 mg daily yesterday his blood pressure, 149/105. Increased his Coreg 12.5 mg twice daily, lisinopril 20 mg daily and amlodipine 10 mg daily. No plan for cardiac cath tomorrow. 3. Altered mental status most probably due to hypotension, metabolic encephalopathy: Resolved 4. Multifocal right upper lobe and lower lobe community acquired pneumonia: Urinary antigens are negative. Patient has influenza A positive. On Tamiflu since admission. Started on IV ceftriaxone and Zithromax and then changed to Zosyn. On bronchodilator as needed, incentive spirometry and Mucinex. DC Zithromax 5. Elevated transaminases suggestive of acute liver injury due to shock/shock liver: ALT in 200s, AST in 400s. Transaminases are trending down, today AST 98, ALT 123. No more need to follow LFT. 6.Nonischemic cardiomyopathy with chronic heart failure status post most probably due to polysubstance use in the past: As per our record, there is old exercise stress test report in 2013 was reported as normal submaximal treadmill stress ECG, negative for ischemia. 2D echo is reported as EF 20% with severe global left ventricular systolic dysfunction with severely stage III diastolic dysfunction. Normal right ventricular size and systolic function. Left atrium mildly enlarged. Normal right atrium. Moderately severe eccentric mitral valve regurgitation. Moderate TR with RVSP 22 mmHg. IVC dilated with partial collapse BNP 422. Hold antihypertensive medication 7. Moderate protein calorie malnutrition: Patient has BMI 17.2 kg/m?. Mild to moderate muscle atrophy in extremities. On ensure. Perhaps due to chronic heart failure and history of drug use other chronic comorbidities include hypertension: Fasting lipid profile is within normal limits except HDL 38. DVT prophylaxis: Heparin 5000 units subcutaneous 3 times daily and bilateral SCDs. Discharge plan: No plan for cardiac cath on Sunday, because of ongoing droplet precaution with pneumonia but check with the fly fishing guide regarding ischemic workup before discharge Microbiology Past 72 Hours 07/06/17 19:45 Sputum, Expectorated/Coughed Gram Stain - Final 07/06/17 19:45 Sputum, Expectorated/Coughed Respiratory Culture - Preliminary Presumptive C albicans 07/04/17 14:00 Blood Culture (Wb) - Anticubital Right Blood Culture - Preliminary No growth in 48 hours. 07/05/17 23:00 Stool C. difficile DNA Amplification - Final Laboratory Results 07/08/17 05:05: WBC 5.4, RBC 3.69 L, Hgb 12.7 L, Hct 35.8 L, MCV 97.0 H, MCH 34.4 H, MCHC 35.5, RDW 13.0, RDW Differential 44.8 H, Plt Count 113 L, MPV 10.7, Immature Gran % (Auto) 0.200, Neut % (Auto) 42.6 L, Lymph % (Auto) 40.5, [place] % (Auto) 14.8 H, Eos % (Auto) 0.2, Baso % (Auto) 1.7 H, Absolute Neuts (auto) 2.3, Absolute Lymphs (auto) 2.19, Total Counted Not Reportable 07/08/17 05:05: Sodium 137, Potassium 3.4 L, Chloride 103, Carbon Dioxide 26.0, Anion Gap 8, BUN 15, Creatinine 1.22, Estim Creat Clear Calc 53.48, Est GFR (MDRD) Af Amer 80, Est GFR (MDRD) Non-Af 66, BUN/Creatinine Ratio 12.3, Glucose 138 H, Calcium 7.4 L, Total Bilirubin 0.40, AST 98 H, ALT 123 H, Alkaline Phosphatase 81, Total Protein 5.5 L, Albumin 2.3 L, Globulin 3.2, Albumin/Globulin Ratio 0.7 L Clinical Impression(s) from Imaging Studies Chest X-Ray 07/04/17 10:25 IMPRESSION: Right upper lobe consolidation. Focal infiltrate in the superior segment of the right lower lobe. Electronically Signed: Rob Gallegos MD at 11:02 EDT Tel [phone], Service support , Chest X-Ray 07/06/17 04:05 IMPRESSION: Pacemaker leads are in proper position. There is a RIGHT-sided PICC line. The tip is in the superior vena cava. There is a residual RIGHT upper lobe infiltrate which has improved since the prior study. There are NO new infiltrates. There is no demonstrated pleural abnormality. Normal size heart. Electronically Signed: Sunil Steiner MD at 7:35 EDT , Service support , The patient can be transferred to the PCU Code Visit Inpatient E&M: [id number] Subs Hosp L3
--- NOTE | 2017-07-08 11:17 | PN_ITS ---
Patient Problems: Active and Suspected Problems Ex-smoker (Acute) Right upper lobe and lower lobe CAP (Acute) Subjective: his blood pressure, 149/105. Seen by blocker and cutter contact lens Dr. Traylor. Increased his Coreg 12.5 mg twice daily, lisinopril 20 mg daily and amlodipine 10 mg daily. Vitals/I&O's: Vital Signs Temp Pulse Resp BP Pulse Ox 97.4 F L 90 16 149/105 H 93 07/08/17 10:36 07/08/17 10:36 07/08/17 10:36 07/08/17 10:36 07/08/17 10:36 Oxygen Flow Rate (L/min) 2 Oxygen Delivery Method Room Air Weight: 118 lb 6.212 oz Body Mass Index (BMI) 17.2 Intake and Output for Last 24 Hours 07/06/17 07/07/17 07/08/17 23:59 23:59 23:59 Intake Total 2850.0 / 2850.0 873.7 / 873.7 524 / 524 Output Total 1250 / 1250 1275 / 1275 425 / 425 Balance 1600.0 / 1600.0 -401.3 / -401.3 99 / 99 General: Alert, Oriented x3, Cooperative HEENT: Atraumatic, PERRLA, EOMI, Normocephalic Oral: Dry Mucosa Neck: Supple, No JVD, Negative Carotid Bruits Lungs: Diminished, Rales - Rales present on the bilateral lung bases, left more than right, Rhonchi Cardiovascular: Regular rate, Normal S1, Normal S2, No murmurs Abdomen: Bowel Sounds Present, Soft, Non Tender, Non-Distended Extremities: No clubbing, No edema Skin: No rashes Musculoskeletal: Muscle Wasting Microbiology Past 72 Hours 07/06/17 19:45 Sputum, Expectorated/Coughed Gram Stain - Final 07/06/17 19:45 Sputum, Expectorated/Coughed Respiratory Culture - Preliminary Presumptive C albicans 07/04/17 14:00 Blood Culture (Wb) - Anticubital Right Blood Culture - Preliminary No growth in 48 hours. 07/05/17 23:00 Stool C. difficile DNA Amplification - Final Laboratory Results 07/08/17 05:05: WBC 5.4, RBC 3.69 L, Hgb 12.7 L, Hct 35.8 L, MCV 97.0 H, MCH 34.4 H, MCHC 35.5, RDW 13.0, RDW Differential 44.8 H, Plt Count 113 L, MPV 10.7 , Immature Gran % (Auto) 0.200, Neut % (Auto) 42.6 L, Lymph % (Auto) 40.5, [place] % (Auto) 14.8 H, Eos % (Auto) 0.2, Baso % (Auto) 1.7 H, Absolute Neuts (auto) 2.3, Absolute Lymphs (auto) 2.19, Total Counted Not Reportable 07/08/17 05:05: Sodium 137, Potassium 3.4 L, Chloride 103, Carbon Dioxide 26.0, Anion Gap 8, BUN 15, Creatinine 1.22, Estim Creat Clear Calc 53.48, Est GFR ( MDRD) Af Amer 80, Est GFR (MDRD) Non-Af 66, BUN/Creatinine Ratio 12.3, Glucose 138 H, Calcium 7.4 L, Total Bilirubin 0.40, AST 98 H, ALT 123 H, Alkaline Phosphatase 81, Total Protein 5.5 L, Albumin 2.3 L, Globulin 3.2, Albumin/ Globulin Ratio 0.7 L Current Medications Acetaminophen (Tylenol) 650 mg PO Q4H PRN PRN PRN Reason: fever/mild pain Last Admin: 07/07/17 00:07 Dose: 650 mg Al Hydroxide/Mg Hydroxide (Mylanta Ii) 30 ml PO Q6H PRN PRN PRN Reason: Gastric Burning Albuterol Sulfate (Ventolin Aerosols) 2.5 mg INHALATION Q2H PRN PRN PRN Reason: SHORTNESS OF BREATH Albuterol/Ipratropium (Duoneb) 3 ml INHALATION Q4HWA.RT [facility] Last Admin: 07/08/17 07:41 Dose: 3 ml Amlodipine Besylate (Norvasc) 10 mg PO DAILY [facility] Last Admin: 07/08/17 10:04 Dose: 10 mg Aspirin (Aspirin, Baby) 81 mg PO DAILY@0800 [facility] Last Admin: 07/08/17 09:35 Dose: 81 mg Atorvastatin Calcium (Lipitor) 80 mg PO QHS [facility] Last Admin: 07/07/17 21:09 Dose: 80 mg Benzonatate (Tessalon Perle) 200 mg PO TID [facility] Last Admin: 03/18/18 05:29 Dose: 200 mg Bisacodyl (Dulcolax) 10 mg RECTAL DAILY PRN PRN PRN Reason: Constipation Carvedilol (Coreg) 25 mg PO BID [facility] Last Admin: 07/08/17 10:04 Dose: 25 mg Docusate Sodium (Colace) 200 mg PO BID PRN PRN PRN Reason: Constipation Famotidine (Pepcid) 20 mg PO DAILY [facility] Last Admin: 07/08/17 09:35 Dose: 20 mg Guaifenesin (Mucinex) 1,200 mg PO BID [facility] Last Admin: 07/08/17 09:35 Dose: 1,200 mg Heparin Sodium (Beef Lung) (Heparin 500 Unit/5 Ml (100/Ml)) 500 unit IV UD PRN PRN Reason: HEPARIN FLUSH Heparin Sodium (Porcine) (Heparin Na) 5,000 unit SC Q8 [facility] Last Admin: 07/08/17 05:29 Dose: Not Given Piperacillin Sod/Tazobactam Sod (Zosyn) 3.375 gm in 50 mls @ 12.5 mls/hr IV Q8 [facility] Last Admin: 07/08/17 05:29 Dose: 12.5 mls/hr Sodium Chloride () 250 mls @ 15 mls/hr IV .[id number] PRN PRN Reason: SALINE FLUSH Lisinopril (Zestril) 20 mg PO DAILY [facility] Nutritional Formula (Lactose Free) (Ensure Clear) 120 ml PO 4X/DAY [facility] Last Admin: 07/08/17 09:30 Dose: 120 ml Ondansetron HCl (Zofran) 4 mg IV Q8H PRN PRN PRN Reason: Nausea Oseltamivir Phosphate (Tamiflu) 30 mg PO BID [facility] Stop: 07/09/17 22:01 Last Admin: 07/08/17 09:35 Dose: 30 mg Polyethylene Glycol (Miralax) 17 gm PO DAILY [facility] Last Admin: 07/08/17 09:32 Dose: 17 gm Prochlorperazine Edisylate (Compazine) 10 mg IV Q6H PRN PRN PRN Reason: Nausea/Vomiting Sodium Chloride () 5 - 30 ml IV UD PRN PRN Reason: SALINE FLUSH Last Admin: 07/08/17 05:06 Dose: 20 ml Sodium Chloride () 10 - 20 ml IV UD PRN PRN Reason: PICC FLUSH Zolpidem Tartrate (Ambien (Generic)) 5 mg PO QHS PRN PRN PRN Reason: insomnia Last Admin: 07/07/17 21:11 Dose: 5 mg Medical Necessity - Tobacco Use Smoking Status: Former smoker Assessment/Plan Active and Suspected Problems Ex-smoker (Acute) Right upper lobe and lower lobe CAP (Acute) The patient is a 52 year old M with history of active smoker and polysubstance use, chronic heart failure with nonischemic cardiomyopathy status post AICD came to ER with progressive worsening of shortness of breath for 2-3 weeks. Patient also has fever with chills. Patient has cough, nonproductive in nature which is getting better. Patient easily gets short of breath at rest and even on mild exertion. In ED, his blood pressure was found elevated. Was mild tachypneic but no fever. Chest x-ray shows right upper lobe consolidation and focal infiltrate of superior segment of right lower lobe suggestive of multifocal pneumonia. Patient is started on IV ceftriaxone and Zithromax and continued. Patient was initially admitted on [facility] and then transferred to PCU for EKG changes. 1. Atypical chest pain; most probably triggered by pneumonia : Patient is being transferred to ICU. Serial troponin enzymes are flat and indeterminant 0.17 and previously 0.4. 2D echo was done. Repeat EKG shows sinus bradycardia but no significant ST-T changes as compared to the previous one. Previous EKG shows normal sinus rhythm at 71 bpm with left anterior fascicular block with T inversion in anterolateral leads. Airline Stewardess was consulted and appreciated.. Chest pain is resolved. 2. Distributive shock, complicated with polypharmacy and superimposed community- acquired pneumonia with history of baseline severe chronic systolic heart failure with EF 20%: Blood pressure is stable AND WAS on short period of Levophed drip. Seen by blocker and cutter contact lens Dr. Traylor. Patient tolerated Coreg 12.5 mg twice daily lisinopril 10 mg daily yesterday his blood pressure, 149/105. Increased his Coreg 12.5 mg twice daily, lisinopril 20 mg daily and amlodipine 10 mg daily. No plan for cardiac cath tomorrow. 3. Altered mental status most probably due to hypotension, metabolic encephalopathy: Resolved 4. Multifocal right upper lobe and lower lobe community acquired pneumonia: Urinary antigens are negative. Patient has influenza A positive. On Tamiflu since admission. Started on IV ceftriaxone and Zithromax and then changed to Zosyn. On bronchodilator as needed, incentive spirometry and Mucinex. DC Zithromax 5. Elevated transaminases suggestive of acute liver injury due to shock/shock liver: ALT in 200s, AST in 400s. Transaminases are trending down, today AST 98, ALT 123. No more need to follow LFT. 6.Nonischemic cardiomyopathy with chronic heart failure status post most probably due to polysubstance use in the past: As per our record, there is old exercise stress test report in 2013 was reported as normal submaximal treadmill stress ECG, negative for ischemia. 2D echo is reported as EF 20% with severe global left ventricular systolic dysfunction with severely stage III diastolic dysfunction. Normal right ventricular size and systolic function. Left atrium mildly enlarged. Normal right atrium. Moderately severe eccentric mitral valve regurgitation. Moderate TR with RVSP 22 mmHg. IVC dilated with partial collapse BNP 422. Hold antihypertensive medication 7. Moderate protein calorie malnutrition: Patient has BMI 17.2 kg/m?. Mild to moderate muscle atrophy in extremities. On ensure. Perhaps due to chronic heart failure and history of drug use other chronic comorbidities include hypertension: Fasting lipid profile is within normal limits except HDL 38. DVT prophylaxis: Heparin 5000 units subcutaneous 3 times daily and bilateral SCDs. Discharge plan: No plan for cardiac cath on Sunday, because of ongoing droplet precaution with pneumonia but check with the blocker and cutter contact lens regarding ischemic workup before discharge Microbiology Past 72 Hours 07/06/17 19:45 Sputum, Expectorated/Coughed Gram Stain - Final 07/06/17 19:45 Sputum, Expectorated/Coughed Respiratory Culture - Preliminary Presumptive C albicans 07/04/17 14:00 Blood Culture (Wb) - Anticubital Right Blood Culture - Preliminary No growth in 48 hours. 07/05/17 23:00 Stool C. difficile DNA Amplification - Final Laboratory Results 07/08/17 05:05: WBC 5.4, RBC 3.69 L, Hgb 12.7 L, Hct 35.8 L, MCV 97.0 H, MCH 34.4 H, MCHC 35.5, RDW 13.0, RDW Differential 44.8 H, Plt Count 113 L, MPV 10.7 , Immature Gran % (Auto) 0.200, Neut % (Auto) 42.6 L, Lymph % (Auto) 40.5, [place] % (Auto) 14.8 H, Eos % (Auto) 0.2, Baso % (Auto) 1.7 H, Absolute Neuts (auto) 2.3, Absolute Lymphs (auto) 2.19, Total Counted Not Reportable 07/08/17 05:05: Sodium 137, Potassium 3.4 L, Chloride 103, Carbon Dioxide 26.0, Anion Gap 8, BUN 15, Creatinine 1.22, Estim Creat Clear Calc 53.48, Est GFR ( MDRD) Af Amer 80, Est GFR (MDRD) Non-Af 66, BUN/Creatinine Ratio 12.3, Glucose 138 H, Calcium 7.4 L, Total Bilirubin 0.40, AST 98 H, ALT 123 H, Alkaline Phosphatase 81, Total Protein 5.5 L, Albumin 2.3 L, Globulin 3.2, Albumin/ Globulin Ratio 0.7 L Clinical Impression(s) from Imaging Studies Chest X-Ray 07/04/17 10:25 IMPRESSION: Right upper lobe consolidation. Focal infiltrate in the superior segment of the right lower lobe. Electronically Signed: Rob Gallegos MD at 11:02 EDT Tel [phone], Service support , Chest X-Ray 07/06/17 04:05 IMPRESSION: Pacemaker leads are in proper position. There is a RIGHT-sided PICC line. The tip is in the superior vena cava. There is a residual RIGHT upper lobe infiltrate which has improved since the prior study. There are NO new infiltrates. There is no demonstrated pleural abnormality. Normal size heart. Electronically Signed: Sunli Steiner MD at 7:35 EDT , Service support , The patient can be transferred to the PCU Code Visit Inpatient E&M: 23865 Subs Hosp L3
[2017-07-08] MEDS: Acetaminophen 325 MG Tablet 650 MG PO (17:43)
[2017-07-08] MEDS: 0.9% NaCl IVPB Med Flush (250 mL) 15 ML IV (19:39)
[2017-07-08] MEDS: Zolpidem Tartrate 5 MG Tablet PO (21:44)
[2017-07-08] MEDS: Atorvastatin Calcium 80 MG Tablet PO (21:44)
[2017-07-08 23:59] LABS: Magnesium 2.1 mg/dL (1.6-2.6)
[2017-07-09] VITALS (14 sets, daily range): BP systolic 100–124; BP diastolic 72–88; PULSE 76–94; RESP 16–18; TEMP 36.8–37.2; O2SAT 94–98
[2017-07-09] MEDS: Piperacil/Tazobactam 3.375 GM/50 ML ML IV ×3 (05:58→22:19)
[2017-07-09] MEDS: Benzonatate 100 MG Capsule 200 MG PO ×3 (05:58→22:20)
--- NOTE | 2017-07-09 07:19 | PCM.PN.CARD ---
Subjectve: Patient seen and evaluated. He appears to be much better at this time. Objective: Vital Signs Temp Pulse Resp BP Pulse Ox 98.8 F 86 16 124/76 H 97 07/09/17 04:31 07/09/17 06:51 07/09/17 04:31 07/09/17 04:31 07/09/17 04:31 Oxygen Flow Rate (L/min) 2 Oxygen Delivery Method Room Air Weight: 118 lb 6.212 oz Body Mass Index (BMI) 17.2 Intake and Output for Last 24 Hours 07/07/17 07/08/17 07/09/17 23:59 23:59 23:59 Intake Total 873.7 / 873.7 1414 / 1414 657 / 657 Output Total 1275 / 1275 1575 / 1575 675 / 675 Balance -401.3 / -401.3 -161 / -161 -18 / -18 General: Awake, Alert, Oriented x 3 HEENT: PERRL, EOMI, Sclera Non Icteric Neck: Supple, Good ROM, No Lymph Node Enlargement Lungs: Clear to auscultation Cardiovascular: Regular Rhythm, Normal S1, Normal S2, No Murmurs, No Rubs, No Gallops Vascular: No Carotid Bruits, Normal Femoral Pulses, Normal Radial Pulses, Normal Dorsalis Pedal Pulse, Normal Posterior Tibial Pulses Abdomen: Bowel Sounds Present, Soft, Non Tender, No HSM, No Organomegaly Extremities: No Cyanosis, No Clubbing, No edema Neurological: No Focal Motor or Sensory Deficit 07/08/17 23:10: Magnesium 2.1 Medical Necessity - Tobacco Use Smoking Status: Former smoker Assessment/Plan 1. Abnormal cardiac enzymes and abnormal EKG I strongly suspect the above likely secondary to his cardiomyopathy which is probably been worsened by his upper respiratory tract infection or pneumonia. The abnormal cardiac enzymes are likely secondary to demand ischemia. There does not appear to be a significant rise and fall and appears to be plateaued. His repeat echocardiogram yesterday demonstrated an ejection fraction of approximately 20% consistent with a dilated cardiomyopathy. My recommendation at this time would be to have him recover from his respiratory tract infection and then will determine whether his coronaries would need to be reevaluated. I do have a low index of suspicion though that this is due to obstructive coronary disease. I have discussed this with him and probably in the next day or so he may undergo a cardiac catheterization. 2. Nonischemic cardiomyopathy He does have a known history of this. He will in the meantime continue on his beta-miley as well as his CHUNG inhibitor. Dosages will need to be reduced and spaced out and introduced slowly. 3. Status post ICD implantation His ICD was identified yesterday. Records were obtained. We will give him the choice as to whether he would follow here with us or he will continue his remote follow-up. Thank you for allowing me to participate in the care of your patient. Please don't hesitate to call if any issues arise
--- NOTE | 2017-07-09 08:01 | PCM.PROGNOTE ---
Patient Problems: Active and Suspected Problems Right upper lobe and lower lobe CAP (Acute) Subjective: Chief complaint: Follow-up after admission for disruptive shock secondary to influenza A and community-acquired pneumonia, also follow-up for atypical chest pain, encephalopathy and elevated LFT. Patient seen and examined. No acute events overnight. All over, he is feeling better. Still complaining of shortness of breath upon ambulation but that has been chronic. He still complaining of sinus drainage with thick yellow material. Cough is improved. Denied any more chest pain. His vital signs are stable, afebrile. - Physical Exam General: Alert, Oriented x3, Cooperative, No apparent distress HEENT: Atraumatic, PERRLA, EOMI Oral: Moist Mucosa, No Gingival or Mucosal Lesions/ Ulcerations Neck: Supple, No JVD, Negative Carotid Bruits, Trachea Midline, Thyroid Normal Size and Texture Lungs: Diminished, Rales, Rhonchi, Short of Breath, - - Decreased breath sounds bilateral, bilateral scattered coarse crackles, rhonchi. Cardiovascular: Regular rate, Regular Rhythm, Normal S1, Normal S2, No murmurs Abdomen: Bowel Sounds Present, Soft, Non Tender, Non-Distended, No Hepato-splenomegaly Extremities: No clubbing, No cyanosis, No edema Skin: No rashes, No breakdown Lymphatic: No Cervical, Supraclavicular, or Inguinal Adenopathy Neurological: Cranial nerves II-XII grossly intact, Motor Exam 5/5 strength throughout Psych/Mental Status: Normal Affect, Appropriate, Alert and oriented to time, place, person, mood and affect Vital Signs Temp Pulse Resp BP Pulse Ox 98.8 F 86 16 124/76 H 97 07/09/17 04:31 07/09/17 06:51 07/09/17 04:31 07/09/17 04:31 07/09/17 04:31 Oxygen Flow Rate (L/min) 2 Oxygen Delivery Method Room Air Weight: 118 lb 6.212 oz Body Mass Index (BMI) 17.2 Intake and Output for Last 24 Hours 07/07/17 07/08/17 07/09/17 23:59 23:59 23:59 Intake Total 873.7 / 873.7 1414 / 1414 657 / 657 Output Total 1275 / 1275 1575 / 1575 675 / 675 Balance -401.3 / -401.3 -161 / -161 -18 Microbiology Past 72 Hours 07/06/17 19:45 Gram Stain - Final Sputum, Expectorated/Coughed Respiratory Culture - Preliminary Presumptive C albicans 07/04/17 14:00 Blood Culture - Preliminary Blood Culture (Wb) - Anticubital Right No growth in 48 hours. Laboratory Tests Past 24 Hrs 07/08/17 23:10 Magnesium 2.1 Clinical Impression(s) from Imaging Studies Chest X-Ray 07/04/17 10:25 IMPRESSION: Right upper lobe consolidation. Focal infiltrate in the superior segment of the right lower lobe. Electronically Signed: Rob Gallegos MD at 11:02 EDT Tel [phone], Service support , Chest X-Ray 07/06/17 04:05 IMPRESSION: Pacemaker leads are in proper position. There is a RIGHT-sided PICC line. The tip is in the superior vena cava. There is a residual RIGHT upper lobe infiltrate which has improved since the prior study. There are NO new infiltrates. There is no demonstrated pleural abnormality. Normal size heart. Electronically Signed: Sunil Steiner MD at 7:35 EDT , Service support , Medical Necessity - Tobacco Use Smoking Status: Former smoker Assessment/Plan Active and Suspected Problems Right upper lobe and lower lobe CAP (Acute) This is a 52 years old male patient presented to the emergency room because of cough and shortness of breath and he was found to have right upper lung community-acquired pneumonia and influenza complicated by A disruptive shock, also found to have encephalopathy and elevated LFT. #1 disruptive shock: Secondary to pneumonia and influenza A. He is on IV Zosyn and Tamiflu. His blood pressure stabilized, heart rate stable and he is afebrile. He was on Levophed drip for short. After admission. At this time, he is back on beta blockers and CHUNG inhibitors. Plan: Continue same treatment. #2 right upper lobe community-acquired pneumonia: He is on IV Zosyn. He has been afebrile, pulse ox is normal on room air and his blood pressure stable. Initial blood culture revealed no growth in 48 hours, repeat blood cultures pending. Pneumococcal and Legionella antigen were negative. Sputum culture revealed presumptive Tara. Plan: Continue IV Zosyn. #3 influenza A: He is on Tamiflu, vital signs are stable. #4 encephalopathy/altered mental status: Secondary to disruptive shock and infection, resolved. #5 elevated LFT: Secondary to shock liver. Main the liver transaminases are elevated and are trending down. Alkaline phosphatase and bilirubin are normal. #6 nonischemic cardiomyopathy/chronic systolic CHF: Probably due to polysubstance abuse in the past. He had 2D echocardiogram on June 29, 2017 and revealed ejection fraction of 20%. At this time, he seemed to be in euvolemic status. Cardiology consulted, plan for possible cardiac catheterization. #7 moderate protein calorie malnutrition: He is on Ensure supplement, nutrition consulted. #8 DVT prophylaxis: Subcu heparin. This note was generated with [employer] dictation software. It may contain incorrect words, spelling, and punctuation that were not noted in checking the note before signing. Code Visit Inpatient E&M: 35955 Subs Hosp L2
--- NOTE | 2017-07-09 08:05 | PN_ITS ---
Patient Problems: Active and Suspected Problems Right upper lobe and lower lobe CAP (Acute) Subjective: Chief complaint: Follow-up after admission for disruptive shock secondary to influenza A and community-acquired pneumonia, also follow-up for atypical chest pain, encephalopathy and elevated LFT. Patient seen and examined. No acute events overnight. All over, he is feeling better. Still complaining of shortness of breath upon ambulation but that has been chronic. He still complaining of sinus drainage with thick yellow material. Cough is improved. Denied any more chest pain. His vital signs are stable, afebrile. - Physical Exam General: Alert, Oriented x3, Cooperative, No apparent distress HEENT: Atraumatic, PERRLA, EOMI Oral: Moist Mucosa, No Gingival or Mucosal Lesions/ Ulcerations Neck: Supple, No JVD, Negative Carotid Bruits, Trachea Midline, Thyroid Normal Size and Texture Lungs: Diminished, Rales, Rhonchi, Short of Breath, - - Decreased breath sounds bilateral, bilateral scattered coarse crackles, rhonchi. Cardiovascular: Regular rate, Regular Rhythm, Normal S1, Normal S2, No murmurs Abdomen: Bowel Sounds Present, Soft, Non Tender, Non-Distended, No Hepato- splenomegaly Extremities: No clubbing, No cyanosis, No edema Skin: No rashes, No breakdown Lymphatic: No Cervical, Supraclavicular, or Inguinal Adenopathy Neurological: Cranial nerves II-XII grossly intact, Motor Exam 5/5 strength throughout Psych/Mental Status: Normal Affect, Appropriate, Alert and oriented to time, place, person, mood and affect Vital Signs Temp Pulse Resp BP Pulse Ox 98.8 F 86 16 124/76 H 97 07/09/17 04:31 07/09/17 06:51 07/09/17 04:31 07/09/17 04:31 07/09/17 04:31 Oxygen Flow Rate (L/min) 2 Oxygen Delivery Method Room Air Weight: 118 lb 6.212 oz Body Mass Index (BMI) 17.2 Intake and Output for Last 24 Hours 07/07/17 07/08/17 07/09/17 23:59 23:59 23:59 Intake Total 873.7 / 873.7 1414 / 1414 657 / 657 Output Total 1275 / 1275 1575 / 1575 675 / 675 Balance -401.3 / -401.3 -161 / -161 -18 Microbiology Past 72 Hours 07/06/17 19:45 Gram Stain - Final Sputum, Expectorated/Coughed Respiratory Culture - Preliminary Presumptive C albicans 07/04/17 14:00 Blood Culture - Preliminary Blood Culture (Wb) - Anticubital Right No growth in 48 hours. Laboratory Tests Past 24 Hrs 07/08/17 23:10 Magnesium 2.1 Clinical Impression(s) from Imaging Studies Chest X-Ray 07/04/17 10:25 IMPRESSION: Right upper lobe consolidation. Focal infiltrate in the superior segment of the right lower lobe. Electronically Signed: Rob Gallegos MD at 11:02 EDT Tel [phone], Service support , Chest X-Ray 07/06/17 04:05 IMPRESSION: Pacemaker leads are in proper position. There is a RIGHT-sided PICC line. The tip is in the superior vena cava. There is a residual RIGHT upper lobe infiltrate which has improved since the prior study. There are NO new infiltrates. There is no demonstrated pleural abnormality. Normal size heart. Electronically Signed: Sunil Steiner MD at 7:35 EDT , Service support , Medical Necessity - Tobacco Use Smoking Status: Former smoker Assessment/Plan Active and Suspected Problems Right upper lobe and lower lobe CAP (Acute) This is a 52 years old male patient presented to the emergency room because of cough and shortness of breath and he was found to have right upper lung community-acquired pneumonia and influenza complicated by A disruptive shock, also found to have encephalopathy and elevated LFT. #1 disruptive shock: Secondary to pneumonia and influenza A. He is on IV Zosyn and Tamiflu. His blood pressure stabilized, heart rate stable and he is afebrile. He was on Levophed drip for short. After admission. At this time, he is back on beta blockers and CHUNG inhibitors. Plan: Continue same treatment. #2 right upper lobe community-acquired pneumonia: He is on IV Zosyn. He has been afebrile, pulse ox is normal on room air and his blood pressure stable. Initial blood culture revealed no growth in 48 hours, repeat blood cultures pending. Pneumococcal and Legionella antigen were negative. Sputum culture revealed presumptive Tara. Plan: Continue IV Zosyn. #3 influenza A: He is on Tamiflu, vital signs are stable. #4 encephalopathy/altered mental status: Secondary to disruptive shock and infection, resolved. #5 elevated LFT: Secondary to shock liver. Main the liver transaminases are elevated and are trending down. Alkaline phosphatase and bilirubin are normal. #6 nonischemic cardiomyopathy/chronic systolic CHF: Probably due to polysubstance abuse in the past. He had 2D echocardiogram on June 29, 2017 and revealed ejection fraction of 20%. At this time, he seemed to be in euvolemic status. Cardiology consulted, plan for possible cardiac catheterization. #7 moderate protein calorie malnutrition: He is on Ensure supplement, nutrition consulted. #8 DVT prophylaxis: Subcu heparin. This note was generated with [employer] dictation software. It may contain incorrect words, spelling, and punctuation that were not noted in checking the note before signing. Code Visit Inpatient E&M: 06341 Subs Hosp L2
[2017-07-09] MEDS: Ipratropium/Albuterol Sulfate 3 ML AMPUL.NEB INHALATION ×4 (08:10→21:35)
[2017-07-09] MEDS: Aspirin 81 MG TAB.CHEW PO (08:23)
[2017-07-09] MEDS: Carvedilol 25 MG Tablet PO ×2 (10:03→22:20)
[2017-07-09] MEDS: amLODIPine 10 MG Tablet PO (10:04)
[2017-07-09] MEDS: Famotidine 20 MG Tablet PO (10:04)
[2017-07-09] MEDS: Lisinopril 20 MG Tablet PO (10:05)
[2017-07-09] MEDS: guaiFENesin 1,200 MG Tablet 1200 MG PO ×2 (10:07→22:20)
[2017-07-09] MEDS: Oseltamivir Phosphate 30 MG Capsule PO ×2 (10:09→22:52)
--- NOTE | 2017-07-09 11:42 | CPS ---
O2 on at wall to nasal cannula 2lpm at bedside, patient stated he uses it occasionally if needed.
[2017-07-09] MEDS: Acetaminophen 325 MG Tablet 650 MG PO (17:05)
[2017-07-09] MEDS: Atorvastatin Calcium 80 MG Tablet PO (22:20)
[2017-07-09] MEDS: Zolpidem Tartrate 5 MG Tablet PO (22:52)
[2017-07-10] VITALS (16 sets, daily range): BP systolic 103–117; BP diastolic 62–90; PULSE 78–87; RESP 16–17; TEMP 36.7–36.8; O2SAT 95–100
[2017-07-10] MEDS: 0.9% NaCl PICC Flush IV (05:00)
[2017-07-10 05:02] LABS: Absolute Lymphocyte Count 2.15 X10^3/ul (0.83-4.51); Basophil# 0.05 X10^3/uL; Basophil% 0.8 % (0-1); Eosinophil# 0.06 X10^3/uL; Eosinophils% 0.9 % (0-5); Hematocrit 34.9 % (40-54); Hemoglobin 11.9 g/dl (13.0-16.5); Lymphocyte # 2.15 X10^3/ul (4.0); Lymphocyte % 32.7 % (19-41); Mean Corp Hgb Conc 34.1 g/gl (32-36); Mean Corpuscular Hgb 33.5 pg (27.0-32.0); Mean Corpuscular Volume 98.3 fL (80-94); Mean Platelet Vol. 10.9 fl (6.2-12.0); Monocyte% 19.8 % (0-10); Neutrophil # 3.01 X10^3/uL (2.7-7.7); Neutrophil % 45.6 % (47-70); Platelet Count 120 K/mm3 (150-450); RBC Distribution Width CV 13.2 % (11.6-14.6); Red Blood Count 3.55 M/mm3 (4.6-6.2); White Blood Count 6.6 K/mm3 (4.4-11.0)
[2017-07-10 05:03] LABS: Differential Indicated SCAN CRITERIA MET; POSITIVE COUNT NO; POSITIVE DIFFERENTIAL NO; POSITIVE MORPHOLOGY YES
[2017-07-10] MEDS: Aspirin 81 MG TAB.CHEW PO (05:03)
[2017-07-10] MEDS: Carvedilol 25 MG Tablet PO (05:03)
[2017-07-10] MEDS: amLODIPine 10 MG Tablet PO (05:03)
[2017-07-10] MEDS: Lisinopril 20 MG Tablet PO (05:03)
[2017-07-10] MEDS: Benzonatate 100 MG Capsule 200 MG PO (05:03)
[2017-07-10] MEDS: Piperacil/Tazobactam 3.375 GM/50 ML ML IV (05:03)
[2017-07-10] MEDS: 0.9% Normal Saline 1,000 ML 15 ML IV (05:05)
[2017-07-10 05:08] LABS: International Normalized Ratio 1.1; Prothrombin Time (Protime)PT. 13.7 SECONDS (11.7-14.9)
[2017-07-10 05:09] LABS: Partial Thromboplast Time 34.9 Seconds (24.1-36.2)
[2017-07-10 05:27] LABS: Magnesium 2.2 mg/dL (1.6-2.6)
[2017-07-10 05:29] LABS: Anion Gap 6 (5-15); BUN 17 mg/dL (7-18); BUN/Creat Ratio 15.5 RATIO (10-20); Calcium,Total 7.8 mg/dL (8.5-10.1); Chloride 104 mmol/L (98-107); EST Glomerular Filtration Rate 74 mL/min (>60); Est Glom Filt Rate - Afr Amer 90 mL/min (>60); Estimated Creatinine Clearance 58.99 ml/min; Glucose 108 mg/dL (74-106); Potassium 4.3 mmol/L (3.5-5.1); Sodium Level 137 mmol/L (136-145)
[2017-07-10 05:40] LABS: Differential Comment SCANNED
--- NOTE | 2017-07-10 05:45 | NURSING ---
This RN reviewed charting by nursing assistants teacher Juvencio Dwyer and agrees with charting.
--- NOTE | 2017-07-10 05:55 | EKG12_ITS ---
Test Reason : AM EKG Blood Pressure : / mmHG Vent. Rate : 081 BPM Atrial Rate : 081 BPM P-R Int : 144 ms QRS Dur : 090 ms QT Int : 402 ms P-R-T Axes : 062 -38 263 degrees QTc Int : 466 ms Normal sinus rhythm Left axis deviation T wave abnormality, consider inferolateral ischemia Prolonged QT Abnormal ECG When compared with ECG of 07-JUL-2017 08:36, MANUAL COMPARISON REQUIRED, DATA IS UNCONFIRMED Confirmed by ABDELRAHMAN AVILA ([id number]), senior editor GILMA CANELA ([id number]) on 07/12/2017 3:11:50 PM Referred By: DR DE LA VEGA Confirmed By:ABDELRAHMAN AVILA
[2017-07-10] MEDS: Ipratropium/Albuterol Sulfate 3 ML AMPUL.NEB INHALATION (06:53)
--- NOTE | 2017-07-10 08:08 | PN_ITS ---
Patient Problems: Active and Suspected Problems Right upper lobe and lower lobe CAP (Acute) Subjective: Chief complaint: Follow-up after admission for disruptive shock secondary to influenza A and community-acquired pneumonia, also follow-up for atypical chest pain, encephalopathy and elevated LFT. Patient seen and examined. No acute events overnight. This morning, he complained of being very thirsty as he is n.p.o. for cardiac catheterization. Otherwise, denied any significant complaints. Vital signs are stable. - Physical Exam General: Alert, Oriented x3, Cooperative, No apparent distress HEENT: Atraumatic, PERRLA, EOMI Oral: Moist Mucosa, No Gingival or Mucosal Lesions/ Ulcerations Neck: Supple, No JVD, Negative Carotid Bruits, Trachea Midline, Thyroid Normal Size and Texture Lungs: Clear to auscultation, No rhonchi, No wheeze, No rales, Diminished Cardiovascular: Regular rate, Regular Rhythm, Normal S1, Normal S2, PMI Normal Abdomen: Bowel Sounds Present, Soft, Non Tender, Non-Distended, No Hepato- splenomegaly Extremities: No clubbing, No cyanosis, No edema Skin: No rashes, No breakdown Lymphatic: No Cervical, Supraclavicular, or Inguinal Adenopathy Neurological: Cranial nerves II-XII grossly intact, Neuro grossly intact Psych/Mental Status: Normal Affect, Appropriate, Alert and oriented to time, place, person, mood and affect Vital Signs Temp Pulse Resp BP Pulse Ox 98.2 F 83 17 107/62 97 07/10/17 06:48 07/10/17 07:10 07/10/17 07:10 07/10/17 06:48 07/10/17 07:35 Oxygen Flow Rate (L/min) 2 Oxygen Delivery Method Room Air Weight: 111 lb 1.808 oz Body Mass Index (BMI) 17.2 Intake and Output for Last 24 Hours 07/08/17 07/09/17 07/10/17 23:59 23:59 23:59 Intake Total 1414 / 1414 1538.4 / 1538.4 557.2 / 557.2 Output Total 1575 / 1575 675 / 675 250 / 250 Balance -161 / -161 863.4 / 863.4 307.2 / 307.2 Microbiology Past 72 Hours 07/04/17 14:00 Blood Culture - Final Blood Culture (Wb) - Anticubital Right No growth in 5 days. 07/05/17 17:15 Blood Culture - Preliminary Blood Culture (Wb) - Left Wrist No growth in 48 hours. 07/05/17 17:10 Blood Culture - Preliminary Blood Culture (Wb) - Pic No growth in 48 hours. 07/06/17 19:45 Gram Stain - Final Sputum, Expectorated/Coughed Respiratory Culture - Final Presumptive C albicans Laboratory Tests Past 24 Hrs 07/10/17 07/10/17 07/10/17 04:35 04:35 04:35 WBC 6.6 RBC 3.55 L Hgb 11.9 L Hct 34.9 L MCV 98.3 H MCH 33.5 H MCHC 34.1 RDW 13.2 RDW Differential 46.0 H Plt Count 120 L MPV 10.9 Immature Gran % (Auto) 0.200 Neut % (Auto) 45.6 L Lymph % (Auto) 32.7 Lake % (Auto) 19.8 H Eos % (Auto) 0.9 Baso % (Auto) 0.8 Absolute Neuts (auto) 3.0 Absolute Lymphs (auto) 2.15 Total Counted Not Reportable Differential Comment SCANNED PT INR APTT Sodium 137 Potassium 4.3 Chloride 104 Carbon Dioxide 27.0 Anion Gap 6 BUN 17 Creatinine 1.10 Estim Creat Clear Calc 58.99 Est GFR (MDRD) Af Amer 90 Est GFR (MDRD) Non-Af 74 BUN/Creatinine Ratio 15.5 Glucose 108 H Calcium 7.8 L Magnesium 2.2 07/10/17 04:35 WBC RBC Hgb Hct MCV MCH MCHC RDW RDW Differential Plt Count MPV Immature Gran % (Auto) Neut % (Auto) Lymph % (Auto) [place] % (Auto) Eos % (Auto) Baso % (Auto) Absolute Neuts (auto) Absolute Lymphs (auto) Total Counted Differential Comment PT 13.7 INR 1.1 APTT 34.9 Sodium Potassium Chloride Carbon Dioxide Anion Gap BUN Creatinine Estim Creat Clear Calc Est GFR (MDRD) Af Amer Est GFR (MDRD) Non-Af BUN/Creatinine Ratio Glucose Calcium Magnesium Medical Necessity - Tobacco Use Smoking Status: Former smoker Assessment/Plan Active and Suspected Problems Right upper lobe and lower lobe CAP (Acute) This is a 52 years old male patient presented to the emergency room because of cough and shortness of breath and he was found to have right upper lung community-acquired pneumonia and influenza complicated by A disruptive shock, also found to have encephalopathy and elevated LFT. #1 disruptive shock: His vital signs remained stable, he has no significant symptoms. It is secondary to pneumonia and influenza A. He is on IV Zosyn and Tamiflu. At this time, he is back on beta blockers and CHUNG inhibitors. Plan: Continue same treatment. #2 right upper lobe community-acquired pneumonia: He is on IV Zosyn. He has been afebrile, pulse ox is normal on room air and his blood pressure stable. Initial and repeat blood culture revealed no growth in 48 hours. Pneumococcal and Legionella antigen were negative. Sputum culture revealed presumptive Tara. Plan: Continue IV Zosyn. #3 influenza A: He is on Tamiflu, vital signs are stable. #4 encephalopathy/altered mental status: Secondary to disruptive shock and infection, resolved. #5 elevated LFT: Secondary to shock liver. Main the liver transaminases are elevated and are trending down. Alkaline phosphatase and bilirubin are normal. #6 nonischemic cardiomyopathy/chronic systolic CHF: Probably due to polysubstance abuse in the past. He had 2D echocardiogram on June 29, 2017 and revealed ejection fraction of 20%. At this time, he seemed to be in euvolemic status. He is on aspirin, statins, Coreg and lisinopril. Cardiology consulted , plan for cardiac catheterization today. #7 moderate protein calorie malnutrition: He is on Ensure supplement, nutrition consulted. #8 DVT prophylaxis: Subcu heparin. This note was generated with [employer] dictation software. It may contain incorrect words, spelling, and punctuation that were not noted in checking the note before signing.
--- NOTE | 2017-07-10 08:33 | PCM.PN.CARD ---
Subjectve: Patient seen and evaluated and underwent cardiac catheterization today. Objective: Vital Signs Temp Pulse Resp BP Pulse Ox 98.2 F 79 17 107/62 97 07/10/17 06:48 07/10/17 07:27 07/10/17 07:10 07/10/17 06:48 07/10/17 07:35 Oxygen Flow Rate (L/min) 2 Oxygen Delivery Method Room Air Weight: 111 lb 1.808 oz Body Mass Index (BMI) 17.2 Intake and Output for Last 24 Hours 07/08/17 07/09/17 07/10/17 23:59 23:59 23:59 Intake Total 1414 / 1414 1538.4 / 1538.4 557.2 / 557.2 Output Total 1575 / 1575 675 / 675 250 / 250 Balance -161 / -161 863.4 / 863.4 307.2 / 307.2 General: Awake, Alert, Oriented x 3 HEENT: PERRL, EOMI, Sclera Non Icteric Neck: Supple, Good ROM, No Lymph Node Enlargement Lungs: Clear to auscultation Cardiovascular: Regular Rhythm, Normal S1, Normal S2, No Murmurs, No Rubs, No Gallops Vascular: No Carotid Bruits, Normal Femoral Pulses, Normal Radial Pulses, Normal Dorsalis Pedal Pulse, Normal Posterior Tibial Pulses Abdomen: Bowel Sounds Present, Soft, Non Tender, No HSM, No Organomegaly Extremities: No Cyanosis, No Clubbing, No edema Neurological: No Focal Motor or Sensory Deficit 07/10/17 04:35: WBC 6.6, RBC 3.55 L, Hgb 11.9 L, Hct 34.9 L, MCV 98.3 H, MCH 33.5 H, MCHC 34.1, RDW 13.2, RDW Differential 46.0 H, Plt Count 120 L, MPV 10.9, Immature Gran % (Auto) 0.200, Neut % (Auto) 45.6 L, Lymph % (Auto) 32.7, [place] % (Auto) 19.8 H, Eos % (Auto) 0.9, Baso % (Auto) 0.8, Absolute Neuts (auto) 3.0, Total Counted Not Reportable 07/10/17 04:35: Sodium 137, Potassium 4.3, Chloride 104, Carbon Dioxide 27.0, Anion Gap 6, BUN 17, Creatinine 1.10, Est GFR (MDRD) Af Amer 90, Est GFR (MDRD) Non-Af 74, BUN/Creatinine Ratio 15.5, Glucose 108 H, Calcium 7.8 L 07/10/17 04:35: Magnesium 2.2 07/10/17 04:35: PT 13.7, INR 1.1, APTT 34.9 Rhythm: EKG: ECHO: Stress Test: Cardiac Cath: PCI: CT Surgery: Holter monitor: EPS: PPM: CXR: Chest CT Scan: Medical Necessity - Tobacco Use Smoking Status: Former smoker Assessment/Plan 1. Abnormal cardiac enzymes and abnormal EKG I strongly suspect the above likely secondary to his cardiomyopathy which is probably been worsened by his upper respiratory tract infection or pneumonia. He underwent a cardiac catheterization today which demonstrated the following: Left main coronary artery which is normal. Left anterior descending artery with mild proximal disease. Nondominant left circumflex artery with no significant disease. Dominant right coronary artery with no significant disease. Globally reduced left ventricular systolic function with estimated ejection fraction of 20%. Elevated left ventricular end-diastolic pressure present. Patient was administered 20 mg of intravenous Lasix due to the elevated left ventricular end-diastolic pressure. 2. Nonischemic cardiomyopathy He does have a known history of this. He will in the meantime continue on his beta-miley as well as his CHUNG inhibitor. Dosages will need to be reduced and spaced out and introduced slowly. 3. Status post ICD implantation His ICD was identified yesterday. Records were obtained. We will give him the choice as to whether he would follow here with us or he will continue his remote follow-up. From the cardiac standpoint the patient can be discharged for outpatient follow-up in 4-6 weeks in my office. Thank you for allowing me to participate in the care of your patient. Please don't hesitate to call if any issues arise
--- NOTE | 2017-07-10 08:38 | PN.CARD_ITS ---
Subjectve: Patient seen and evaluated and underwent cardiac catheterization today. Objective: Vital Signs Temp Pulse Resp BP Pulse Ox 98.2 F 79 17 107/62 97 07/10/17 06:48 07/10/17 07:27 07/10/17 07:10 07/10/17 06:48 07/10/17 07:35 Oxygen Flow Rate (L/min) 2 Oxygen Delivery Method Room Air Weight: 111 lb 1.808 oz Body Mass Index (BMI) 17.2 Intake and Output for Last 24 Hours 07/08/17 07/09/17 07/10/17 23:59 23:59 23:59 Intake Total 1414 / 1414 1538.4 / 1538.4 557.2 / 557.2 Output Total 1575 / 1575 675 / 675 250 / 250 Balance -161 / -161 863.4 / 863.4 307.2 / 307.2 General: Awake, Alert, Oriented x 3 HEENT: PERRL, EOMI, Sclera Non Icteric Neck: Supple, Good ROM, No Lymph Node Enlargement Lungs: Clear to auscultation Cardiovascular: Regular Rhythm, Normal S1, Normal S2, No Murmurs, No Rubs, No Gallops Vascular: No Carotid Bruits, Normal Femoral Pulses, Normal Radial Pulses, Normal Dorsalis Pedal Pulse, Normal Posterior Tibial Pulses Abdomen: Bowel Sounds Present, Soft, Non Tender, No HSM, No Organomegaly Extremities: No Cyanosis, No Clubbing, No edema Neurological: No Focal Motor or Sensory Deficit 07/10/17 04:35: WBC 6.6, RBC 3.55 L, Hgb 11.9 L, Hct 34.9 L, MCV 98.3 H, MCH 33.5 H, MCHC 34.1, RDW 13.2, RDW Differential 46.0 H, Plt Count 120 L, MPV 10.9 , Immature Gran % (Auto) 0.200, Neut % (Auto) 45.6 L, Lymph % (Auto) 32.7, [place] % (Auto) 19.8 H, Eos % (Auto) 0.9, Baso % (Auto) 0.8, Absolute Neuts (auto) 3.0 , Total Counted Not Reportable 07/10/17 04:35: Sodium 137, Potassium 4.3, Chloride 104, Carbon Dioxide 27.0, Anion Gap 6, BUN 17, Creatinine 1.10, Est GFR (MDRD) Af Amer 90, Est GFR (MDRD) Non-Af 74, BUN/Creatinine Ratio 15.5, Glucose 108 H, Calcium 7.8 L 07/10/17 04:35: Magnesium 2.2 07/10/17 04:35: PT 13.7, INR 1.1, APTT 34.9 Rhythm: EKG: ECHO: Stress Test: Cardiac Cath: PCI: CT Surgery: Holter monitor: EPS: PPM: CXR: Chest CT Scan: Medical Necessity - Tobacco Use Smoking Status: Former smoker Assessment/Plan 1. Abnormal cardiac enzymes and abnormal EKG I strongly suspect the above likely secondary to his cardiomyopathy which is probably been worsened by his upper respiratory tract infection or pneumonia. He underwent a cardiac catheterization today which demonstrated the following: Left main coronary artery which is normal. Left anterior descending artery with mild proximal disease. Nondominant left circumflex artery with no significant disease. Dominant right coronary artery with no significant disease. Globally reduced left ventricular systolic function with estimated ejection fraction of 20%. Elevated left ventricular end-diastolic pressure present. Patient was administered 20 mg of intravenous Lasix due to the elevated left ventricular end-diastolic pressure. 2. Nonischemic cardiomyopathy He does have a known history of this. He will in the meantime continue on his beta-miley as well as his CHUNG inhibitor. Dosages will need to be reduced and spaced out and introduced slowly. 3. Status post ICD implantation His ICD was identified yesterday. Records were obtained. We will give him the choice as to whether he would follow here with us or he will continue his remote follow-up. From the cardiac standpoint the patient can be discharged for outpatient follow- up in 4-6 weeks in my office. Thank you for allowing me to participate in the care of your patient. Please don't hesitate to call if any issues arise
--- NOTE | 2017-07-10 08:43 | CL.D_ITS ---
Patient Name: MARGARETH LOPEZ Study Date: 07/10/2017 Performing: José Krishnan MD Ht: 68.11 inches 173 cm : 1965 Wt: 119.05 lbs 54 kg Age: 52 Gender: male BSA: 1.64 PROCEDURE(S) PERFORMED [id number]/LV CLINICAL PROFILE AND INDICATIONS INDICATIONS: 52-year-old man with a history of cardiomyopathy and abnormal cardiac enzymes. Stress/Imaging Stress/Image Study Performed: No CAD Presentations: Symptom unlikely to be ischemic. CONCLUSIONS Mild CAD RECOMMENDATIONS Medical therapy DESCRIPTION OF PROCEDURE The patient arrived to the procedure lab. The risks and benefits of the procedure as well as a full d escription of our services here and current unavailability of surgical backup were fully explained to the patient and/or their significant other prior to the catheterization. The Timeout was completed, verifying the correct patient and procedure. The patient's procedural site was prepped and draped in the usual fashion. Local anesthetic was given subcutaneously to right groin region with Lidocaine 2%. Using a modified Seldinger technique, arterial access was obtained via the right femoral artery, a 5 Fr sheath was inserted. Left Coronary Artery selective angiography was performed in multiple views u sing a 5 Fr. JL4 catheter. Right Coronary Artery selective angiography was then performed in multiple views using a 5 Fr. 3DRC (Max) catheter. Left Ventriculography was performed in KIM projection using a 5 Fr. Pigtail catheter. LV to AO pullback pressures were then recorded.The arterial sheath wa s pulled and manual compression applied until hemostasis is achieved. CORONARY ANGIOGRAPHY DOMINANCE: Right Dominant LEFT HEART ASSESSMENT Left Ventricular Ejection Fraction: by LV Gram 20 % Global Hypokinesis - Severe Depressed Left Ventricular systolic function LVEDP: 34 mmHg LEFT MAIN: Angiographically normal LEFT ANTERIOR DECENDING ARTERY: PROX LAD: Mild luminal irregularities less than 30% MID LAD: Mild luminal irregularities DISTAL LAD: Mild luminal irregularities CIRCUMFLEX ARTERY: Mild luminal irregularities RIGHT CORONARY ARTERY: Mild luminal irregularities COMPLICATIONS No Complications PROCEDURE MEDICATIONS Versed 1 mg IV Oxygen: 2 L/min via nasal cannula Lasix 20 mg IV 07/10/2017 08:28:36 SUMMARY OF HEMODYNAMIC DATA Time AIR REST ECG 08:09:23 AO 109/87 (98) SA 08:19:35 LV 118/9, 34 08:24:45 LV 115/0, 34 08:24:51 LV 122/2, 35 08:25:37 LVp 121/2, 33 08:25:48 AOp 127/82 (100) 08:25:53 Signed By José Krishnan MD On 07/10/2017 8:42:18 AM José Krishnan MD
[2017-07-10] MEDS: guaiFENesin 1,200 MG Tablet 1200 MG PO (09:40)
[2017-07-10] MEDS: Famotidine 20 MG Tablet PO (09:40)
--- NOTE | 2017-07-10 10:44 | PCM.DC ---
- Discharge Diagnoses Current Active Problems: Current Active and Chronic Problems Nonischemic cardiomyopathy (Chronic) chronic heart failure status post AICD (Chronic) History of smoking and illicit subst use (Chronic) History of substance use (Chronic) Right upper lobe and lower lobe CAP (Acute) You will use the following diet at home:: Cardiac Your food should be the consistency of: Regular Discharge Activity: Return to Normal Activity Weight Bearing Status: Weight bearing as tolerated Call your doctor if you observe: Fever of 101 or Higher, Shortness of breath, Dizziness, Fainting spells, Chest pain, Increased palpitations (irregular heartbeat), Uncontrolled pain Instructions: ED Pneumonia Adult Allergies/Adverse Reactions: Allergies No Known Allergies Allergy (Verified 07/04/17 09:54) Medications to take at Discharge Amlodipine [Norvasc] 10 mg PO DAILY 03/21/13 Carvedilol [Coreg (Beta Smith[place])] 25 mg PO BID 03/21/13 Lisinopril 20 mg PO DAILY #30 tablet 01/17/17 Benzonatate [Tessalon Perle] 100 mg PO TID PRN PRN #20 capsule 06/29/17 Aspirin [Aspirin, Baby] 81 mg PO DAILY@0800 #90 tab.chew 07/10/17 Atorvastatin Calcium [Lipitor] 80 mg PO QHS #90 tab 07/10/17 Levofloxacin [Levaquin] 750 mg PO DAILY #5 tab 07/10/17 The following prescriptions were given: Aspirin [Aspirin, Baby] 81 mg PO DAILY@0800 #90 tab.chew Atorvastatin Calcium [Lipitor] 80 mg PO QHS #90 tab Levofloxacin [Levaquin] 750 mg PO DAILY #5 tab Primary Care Physician: Care Physician,No Primary [NON-STAFF] - 3-5 Days Please follow up with your Primary Care Physician in: 2 weeks. Please Follow Up With: José Krishnan MD When: 4-6 weeks.
--- NOTE | 2017-07-10 12:44 | NURSING ---
Pt got up on own prior to bedrest being up. States The [facility] just said I could go home Site is clean and dry, no drainage. Pt placed back on bedrest and educated on the importance of remaining on bedrest and not moving the right leg were cath site is. Pt doesnt know who will be transporting home but he will call someone shortly. Pt also states that he lives with quite a few family member and they will be staying with him overnight. Educated on the importance of having someone stay with him tonight.
--- NOTE | 2017-07-10 16:22 | DS.PCM_ITS ---
Discharge Date and Diagnosis Date of Admission: 07/04/17 Date of Discharge: 07/10/17 - Primary Discharge Diagnosis #1 disruptive shock secondary to pneumonia and influenza A. #2 right upper lobe community-acquired pneumonia. #3 influenza a. #4 metabolic encephalopathy. #5 elevated LFT, secondary to shock liver. #6 nonischemic cardiomyopathy/chronic systolic CHF, status post cardiac catheterization that revealed mild disease, no evidence of significant stenosis or occlusion of the coronary arteries. - Secondary Discharge Diagnosis Chronic Problems Nonischemic cardiomyopathy (Chronic) chronic heart failure status post AICD (Chronic) History of smoking and illicit subst use (Chronic) History of substance use (Chronic) Hospital Course and Treatment Imaging Results: Clinical Impression(s) from Imaging Studies Chest X-Ray 07/04/17 10:25 IMPRESSION: Right upper lobe consolidation. Focal infiltrate in the superior segment of the right lower lobe. Electronically Signed: Rob Gallegos MD at 11:02 EDT Tel [phone], Service support , Chest X-Ray 07/06/17 04:05 IMPRESSION: Pacemaker leads are in proper position. There is a RIGHT-sided PICC line. The tip is in the superior vena cava. There is a residual RIGHT upper lobe infiltrate which has improved since the prior study. There are NO new infiltrates. There is no demonstrated pleural abnormality. Normal size heart. Electronically Signed: Sunil Steiner MD at 7:35 EDT , Service support , Dr. Traylor/Dr. Krishnan, cardiology. Dr. Gonzalez, critical care. Procedures: 2-D Echocardiogram, Cardiac catheterization, EGD Summary of Care Provided: The patient is a 52 year old M because of cough and shortness of breath and he was diagnosed with right upper lobe community-acquired pneumonia and acute influenza A and both were complicated by acute disruptive shock and also was found to have encephalopathy and elevated LFT. #1 disruptive shock: secondary to pneumonia and influenza A. Initially, patient was admitted to the intensive care unit and he was started on IV Levophed drip for a short time. He was treated with IV antibiotics and Tamiflu and shortly after, her blood pressure stabilized. His lactic acid was elevated at 2.4 on admission and improved with IV fluids and vasopressors. #2 right upper lobe community-acquired pneumonia: Treated with IV Zosyn. His initial and repeat blood culture showed no growth in 5 days. Pneumococcal and Legionella antigen were negative. Sputum culture revealed presumptive Tara. Patient remained afebrile for more than 72 hours and his vital signs remained stable. He was discharged on Levaquin 750 mg p.o. daily for 5 days. #3 influenza A: He completed treatment with Tamiflu for 5 days.. #4 encephalopathy/altered mental status: Secondary to disruptive shock and infection, resolved. #5 elevated LFT: Secondary to shock liver. Main the liver transaminases are elevated and are trending down. Alkaline phosphatase and bilirubin are normal. #6 nonischemic cardiomyopathy/chronic systolic CHF: Probably due to polysubstance abuse in the past. He had 2D echocardiogram on June 29, 2017 and revealed ejection fraction of 20%. He had 2D echocardiogram this admission and revealed ejection fraction of 20%. He underwent cardiac catheterization that showed no evidence of significant CAD, showed mild CAD, no interventions done. Patient discharged home in a stable medical condition, discharged on Levaquin for 5 days to complete total of 10 days of treatment with antibiotics, discharged on aspirin, statins, Coreg, lisinopril and Norvasc, plan to follow- up with PCP in 2 weeks and follow-up with cardiology in 4-6 weeks. This note was generated with [employer] dictation software. It may contain incorrect words, spelling, and punctuation that were not noted in checking the note before signing. Discharge Activity: Return to Normal Activity Weight Bearing Status: Weight bearing as tolerated Call your doctor if you observe: Fever of 101 or Higher, Shortness of breath, Dizziness, Fainting spells, Chest pain, Increased palpitations (irregular heartbeat), Uncontrolled pain Home Medications: Medications to take at Discharge Amlodipine [Norvasc] 10 mg PO DAILY 03/21/13 Carvedilol [Coreg (Beta [place])] 25 mg PO BID 03/21/13 Lisinopril 20 mg PO DAILY #30 tablet 01/17/17 Benzonatate [Tessalon Perle] 100 mg PO TID PRN PRN #20 capsule 06/29/17 Aspirin [Aspirin, Baby] 81 mg PO DAILY@0800 #90 tab.chew 07/10/17 Atorvastatin Calcium [Lipitor] 80 mg PO QHS #90 tab 07/10/17 levoFLOXacin tablet [Levaquin] 750 mg PO DAILY #5 tab 07/10/17 Following Prescrptions Were Given to Patient: Aspirin [Aspirin, Baby] 81 mg PO DAILY@0800 #90 tab.chew Atorvastatin Calcium [Lipitor] 80 mg PO QHS #90 tab levoFLOXacin tablet [Levaquin] 750 mg PO DAILY #5 tab Primary Care Physician: Care Physician,No Primary [NON-STAFF] - 3-5 Days Please follow up with your Primary Care Physician in: 2 weeks. Please Follow Up With: José Krishnan MD When: 4-6 weeks. Patient Instructions: ED Pneumonia Adult Disposition: Home Minutes spent on discharge:: 34 Patient Condition:: Stable Medical Necessity - Tobacco Use Smoking Status: Former smoker Meaningful Use Info Meaningful Use Diagnoses (Choose all that apply): None applicable Code Visit Inpatient E&M: 60471 Disch Hosp
== END 2017-07-10 15:02 | disposition home or self-care (01) | DRG 193 ==
LOC: ED 12:03 → MS2 07-05 05:11 → PCU 07-05 07:23 → MS2 07-05 08:19 → PCU 07-05 08:19 → ICU 07-05 15:40 → PCU 07-06 15:36
PROVIDERS: Family Medicine; Internal Medicine Cardiovascular Disease; Internal Medicine Critical Care Medicine; Admitting Provider Internal Medicine; Emergency Provider Emergency Medicine; Family Provider Family Medicine; PCP Family Medicine; Visit Provider Hospitalist
DX: J10.00 Influenza due to other identified influenza virus with unspecified type of pneumonia (principal); G93.41 Metabolic encephalopathy; K72.00 Acute and subacute hepatic failure without coma; I21.4 Non-ST elevation (NSTEMI) myocardial infarction; R57.8 Other shock; I50.22 Chronic systolic (congestive) heart failure; E44.0 Moderate protein-calorie malnutrition; Z68.1 Body mass index [BMI] 19.9 or less, adult; N17.9 Acute kidney failure, unspecified; I42.0 Dilated cardiomyopathy; I11.0 Hypertensive heart disease with heart failure; Z95.810 Presence of automatic (implantable) cardiac defibrillator; I25.10 Atherosclerotic heart disease of native coronary artery without angina pectoris; Z79.899 Other long term (current) drug therapy; Z87.891 Personal history of nicotine dependence
CPT/HCPCS: 36415; 36569; 71045; 71046; 80048; 80053; 80061; 80307; 81001; 81002; 82962; 83605; 83735; 83880; 84484; 85025; 85610; 85730; 87040; 87070; 87205; 87449; 87493; 87633; 87641; 93005; 93306; 93458; 94640; 94667; 94668; 99152; 99153; 99283; 99406; J7030; J7050; A4216; C1769; J0610; J1940; J2310; J2405; Q9967

== ENCOUNTER 2017-08-08 12:08 | Emergency (ER) | payer MEDICARE, SELFPAY ==
[2017-08-08 12:09] VITALS: PULSE 108; RESP 16; TEMP 37; O2SAT 95; BMI 18.9
--- NOTE | 2017-08-08 13:20 | RAD_ITS ---
STUDY: X-RAY CHEST REASON FOR EXAM: Male, 52 years old. Cough. Recent flu. TECHNIQUE: PA and lateral views of the chest. COMPARISON: Comparison is made with prior study dated July 06, 2017. FINDINGS: Hyperinflation. The previously seen right upper lobe infiltrate has resolved. There is no demonstrated pleural abnormality. Normal size heart. A left-sided dual-chamber pacemaker is Normal mediastinum and gypsy. There is prominence of the pulmonary hilar arteries without peripheral pulmonary vascular congestion, suggesting pulmonary hypertension. There is atherosclerotic tortuosity of the aortic arch and descending thoracic aorta. Normal visualized thoracic spine. Normal visualized ribs, clavicles, and shoulders. There is no demonstrated abnormality of the visualized soft tissue structures of the upper abdomen. RAD/Chest PA and Lateral IMPRESSION: Hyperinflation. No acute infiltrate is seen. Electronically Signed: Rob Gallegos MD at 13:42 EDT Tel [phone], Service support ,
[2017-08-08] MEDS: amLODIPine 10 MG Tablet PO (13:42)
[2017-08-08] MEDS: Carvedilol 25 MG Tablet PO (13:42)
[2017-08-08 13:45] VITALS: BP 178/129; PULSE 108; RESP 16; O2SAT 96
--- NOTE | 2017-08-08 14:16 | ED.VISSUMM ---
- ER Visit Summary Date of Service: 08/08/17 Chief Complaint: Cold symptoms and shortness of breath History of Present Illness: The patient is a 52 M who is had cough and congestion over the last several days. Patient states symptoms are worse when he lies down. He does get some drainage in the back of his throat. He was admitted last month for pneumonia and went to be treated have pneumonia again. He also reports that he lost all his medications 2 weeks ago. He states they were put in a box and was placed. He is concerned about his blood pressure being elevated. Past history significant for high cholesterol and nonischemic cardiomyopathy. He does have an AICD. Physical Examination: Blood pressure is 170/129, temperature 98.6, heart rate 108, respiratory rate 16, pulse ox 95% on room air. Patient's lying in bed no acute distress. He speaking full sentences. Head and neck examination reveals mild posterior pharyngeal drainage. TMs are clear bilaterally. Heart is regular rate and rhythm. Lung sounds are clear. Abdomen is soft and nontender. Test Results: Two-view chest x-ray reveals hyperinflation. No evidence of focal infiltrate. Emergency Department Course and Treatment: Patient is given his normal doses of Coreg and Norvasc here in the emergency room. Repeat blood pressure at discharge is 174/83. I did write refills for his medications for the next 2 weeks and also wrote him for Claritin to help control postnasal drip which I believe is triggering a lot of his cough. Patient is to follow-up with his primary care physician within the next 2 weeks for repeat evaluation and refill of his medications. Treatment Plan: [] Disposition: Discharge Impression: 1. URI with postnasal drip 2. Medication refill This note was generated with [employer] dictation software. It may contain incorrect words, spelling, and punctuation that were not noted in review of the chart prior to signing ED Disposition - Plan for ED Patient: Disposition: Home or Assisted Living Chief Complaint: Cold Sx Instructions: ED Upper Resp Infec No Abx Tx, ED HTN Established Prescriptions: Amlodipine Besylate [Norvasc] 10 mg PO DAILY #14 tablet Aspirin [Aspir-Low] 81 mg PO DAILY #14 tablet. Atorvastatin Calcium [Lipitor] 80 mg PO QHS #14 tablet Lisinopril 20 mg PO DAILY #14 tablet Loratadine [Claritin] 10 mg PO DAILY #14 tablet Carvedilol [Coreg] 25 mg PO BID #14 tablet Referrals: Geovany Palma MD [Primary Care Provider] - 1 Week
--- NOTE | 2017-08-08 14:21 | DCINST.ED_ITS ---
ED Disposition - Plan for ED Patient: Disposition: Home or Assisted Living Chief Complaint: Cold Sx Instructions: ED Upper Resp Infec No Abx Tx, ED HTN Established Prescriptions: Amlodipine Besylate [Norvasc] 10 mg PO DAILY #14 tablet Aspirin [Aspir-Low] 81 mg PO DAILY #14 tablet. Atorvastatin Calcium [Lipitor] 80 mg PO QHS #14 tablet Lisinopril 20 mg PO DAILY #14 tablet Loratadine [Claritin] 10 mg PO DAILY #14 tablet Carvedilol [Coreg] 25 mg PO BID #14 tablet Referrals: Geovany Palma MD [Primary Care Provider] - 1 Week
[2017-08-08 14:29] VITALS: BP 174/83; PULSE 82; RESP 16; O2SAT 97
== END 2017-08-08 14:29 | disposition home or self-care (01) ==
PROVIDERS: Emergency Provider Emergency Medicine; Family Provider Family Medicine; PCP Family Medicine
DX: J06.9 Acute upper respiratory infection, unspecified (principal); R09.82 Postnasal drip; E78.00 Pure hypercholesterolemia, unspecified; I42.9 Cardiomyopathy, unspecified; F12.90 Cannabis use, unspecified, uncomplicated; Z95.810 Presence of automatic (implantable) cardiac defibrillator; Z79.82 Long term (current) use of aspirin; Z79.899 Other long term (current) drug therapy; Z72.0 Tobacco use
CPT/HCPCS: 71046; 99283

== ENCOUNTER 2018-04-25 12:09 | Emergency (ER) | payer MEDICARE, SELFPAY ==
[2018-04-25 12:09] VITALS: BP 160/103; PULSE 82; RESP 14; TEMP 36.5; O2SAT 98; BMI 19.8
--- NOTE | 2018-04-25 12:22 | ED.VISSUMM ---
- ER Visit Summary Date of Service: 04/25/18 Chief Complaint: Pain bottom of right foot History of Present Illness: The patient is a 53 M who has multiple significant medical problems presents because of pain bottom surface of right foot. He states he has an appointment in 2 weeks to be seen by podiatry. He denies fever, chills night sweats. He denies symptoms of claudication. There is no history of trauma. He states his primary care physician thinks it is a wart. Physical Examination: Vital signs are marked for an elevated blood pressure of 160/103. Patient has what appears to be a callus near the crease of the fifth/little toe right foot on the plantar surface. He reports significant pain with palpation. Capillary refill is normal. Sensation is normal. Test Results: None Emergency Department Course and Treatment: Podiatry was paged. They will contact patient with appointment for definitive treatment Treatment Plan: Outpatient referral to podiatry Disposition: Discharged home Impression: Painful callus plantar surface right foot This note was generated with [employer] dictation software. It may contain incorrect words, spelling, and punctuation that were not noted in review of the chart prior to signing ED Disposition - Plan for ED Patient: Disposition: Home or Assisted Living Chief Complaint: Lower Extremity Injury Instructions: Treating Corns and Calluses Referrals: Geovany Palma MD [Primary Care Provider] - Jocelyne Montanez DPM [STAFF PHYSICIAN] - Additional Instructions: Dr. Jocelyne Burrell's office staff will contact you with an appointment.
== END 2018-04-25 12:52 | disposition home or self-care (01) ==
PROVIDERS: Emergency Provider Emergency Medicine; Family Provider Family Medicine; PCP Family Medicine
DX: L84 Corns and callosities (principal); I25.10 Atherosclerotic heart disease of native coronary artery without angina pectoris; I11.0 Hypertensive heart disease with heart failure; I50.9 Heart failure, unspecified; F12.90 Cannabis use, unspecified, uncomplicated; Z79.82 Long term (current) use of aspirin; Z79.899 Other long term (current) drug therapy; Z87.891 Personal history of nicotine dependence
CPT/HCPCS: 99282